=== PATIENT | female | born 1960 | race Caucasian/White ===

== ENCOUNTER 2018-06-28 16:59 | Inpatient (IN) | payer OTHER ==
--- OUTSIDE RECORDS SUMMARY | 2018-06-28 17:01 | XMS REPORT | Clinical Summary ---
:1960 Author Organization [facility] Address [address] [place] [address] Care Team Providers Name Role Phone Dhruv Palmer DO Primary Care Provider Allergies No Known Allergies Current Medications Not on file Active Problems Not on file Social History Tobacco Use Types Packs/Day Years Used Date Never Smoker Alcohol Use Drinks/Week oz/Week Comments No Sex Assigned at Date Recorded Not on file Last Filed Vital Signs Not on file Plan of Treatment Health Maintenance Due Date Last Done Comments CERVICAL CANCER SCREENING 11/10/1979 BREAST CANCER SCREENING 2008 COLON CANCER SCREENING 2008 SHINGRIX VACCINE (#1) 2008 INFLUENZA VACCINE 04/09/2018 Results Not on fileafter 06/27/2017 Insurance Payer Benefit Plan / Group Subscriber ID Type Phone Address [employer] C[employer] OPEN ACCESS/NETWORK xxxxxxxxxxx HMO [phone] [place] [address]
[2018-06-28] MEDS ORDERED: NA CHLORIDE 0.9% 1,000 ML ONE (17:32)
[2018-06-28] MEDS ORDERED: PANTOPRAZOLE 40 MG INJ ONE (17:32)
[2018-06-28] MEDS ORDERED: MORPHINE 4 MG/ML SYR ONE (17:32)
[2018-06-28] MEDS ORDERED: ONDANSETRON 4 MG/2 ML VIAL ONE ×3 (17:32→21:41)
[2018-06-28 17:49] LABS: Absolute Lymphocytes (CBC) 1.5 K/uL (0.7-4.9); Absolute Monocytes 0.2 K/uL (0.1-1.3); Absolute Neutrophil 6.4 K/uL (1.8-8.0); Basophils % 0.2 % (0-1.3); Hematocrit 40.3 % (36.0-45.0); Lymphocytes % 18.9 % (15.3-44.8); MCH 28.3 pg (27.0-35.0); MCV 85.8 fL (80-100); MPV 8.5 fL (7.6-11.3); Monocytes % 2.7 % (3.3-12.3); RBC Red Blood Cell Count 4.69 M/uL (3.86-4.86)
[2018-06-28 18:19] LABS: ALT/SGPT 17 U/L (12-78); AST/SGOT 14 U/L (15-37); Albumin 3.9 g/dL (3.4-5.0); Alkaline Phosphatase 129 U/L (45-117); BUN Blood Urea Nitrogen 21 mg/dL (7-18); Bicarbonate 27 mmol/L (21-32); Bilirubin Direct < 0.1 mg/dL (0-0.2); Bilirubin Total 0.3 mg/dL (0.2-1.0); Glucose Level 138 mg/dL (74-106); Lipase 155 U/L (73-393); Magnesium 1.9 mg/dL (1.8-2.4); Potassium 3.8 mmol/L (3.5-5.1); Protein, Total 8.2 g/dL (6.4-8.2); Sodium Level 143 mmol/L (136-145); Troponin I < 0.02 ng/mL (0.0-0.045)
[2018-06-28] MEDS ORDERED: PROMETHAZINE 25 MG/ML VIAL ONE (18:34)
--- NOTE | 2018-06-28 18:53 | RAD REPORT ---
EXAM DESCRIPTION: CT - Abdomen Pelvis W Contrast - 06/28/2018 6:30 pm CLINICAL HISTORY: Abdominal pain with vomiting COMPARISON: April 2017 TECHNIQUE: Computed axial tomography of the abdomen pelvis was obtained. 100 cc Isovue-300 was admin istered intravenously. Oral contrast was not requested which limits evaluation of bowel. All CT scans are performed using dose optimization technique as appropriate and may include automated exposure control or mA/KV adjustment according to patient size. FINDINGS: The liver, spleen, pancreas, adrenal and kidneys appear unremarkable. There is no evidence of diverticulitis. The gallbladder has been removed. Loop of jejunum is mildly dilated and fluid-filled. Small to moderate hiatal hernia is seen IMPRESSION: Loop of jejunum is mildly dilated and fluid-filled. Most likely this represents an enter itis. If the patient's symptoms persist followup abdominal plain film series would be recommended
--- NOTE | 2018-06-28 19:26 | RAD REPORT ---
EXAM DESCRIPTION: [place] Single View06/28/2018 6:21 pm CLINICAL HISTORY: Abdominal pain COMPARISON: April 2017 FINDINGS: The lungs appear clear of acute infiltrate. The heart is normal size IMPRESSION: No acute abnormalities displayed
[2018-06-28 19:30] LABS: Urine Blood TRACE (NEG); Urine Glucose NEGATIVE (NEG); Urine Protein NEGATIVE (NEG)
--- NOTE | 2018-06-28 21:05 | EDPHYS ---
Physician Documentation [facility] Name: Sirisha Iraj Age: 57 yrs Sex: Female : 1960 Arrival Date: 06/28/2018 Time: 17:01 Bed 27 Private MD: ED Physician Raj Fine HPI: 06/28 17:30 This 57 yrs old Female presents to ER via Wheelchair with complaints of cp Vomiting. 17:30 The patient presents to the emergency department with nausea, with "dry heaves", cp vomiting, that is continuous, described as bilious, abdominal pain. 17:30 Onset: The symptoms/episode began/occurred yesterday. Possible causes: unknown. cp Associated signs and symptoms: Pertinent positives: anorexia, Pertinent negatives: constipation, diarrhea, fever, GI bleeding. Severity of symptoms: in the emergency department the symptoms are unchanged despite home interventions. Historical: - Allergies: 17:09 No Known Allergies; aj1 - Home Meds: 17:09 Ambien Oral [Active]; levothyroxine oral [Active]; aj1 - PMHx: 17:09 Hypothyroidism; aj1 - Immunization history:: Flu vaccine is not up to date. - Social history:: Smoking status: Patient/guardian denies using tobacco. - Ebola Screening: : Patient denies travel to an Ebola-affected area in the 21 days before illness onset. ROS: 17:40 Constitutional: Positive for poor PO intake, Negative for body aches, chills, fever. cp 17:40 Eyes: Negative for injury, pain, redness, and discharge. cp 17:40 ENT: Negative for drainage from ear(s), ear pain, sore throat, difficulty swallowing, difficulty handling secretions. 17:40 Cardiovascular: Negative for chest pain, edema, palpitations. 17:40 Respiratory: Negative for cough, shortness of breath, wheezing. 17:40 Abdomen/GI: Positive for abdominal pain, nausea, vomiting, of the epigastric area, right upper quadrant and left upper quadrant, Negative for diarrhea, constipation, dysphagia, hematemesis, black/tarry stool, rectal bleeding. 17:40 Back: Negative for radiated pain. 17:40 : Negative for urinary symptoms. 17:40 Skin: Negative for cellulitis, rash. 17:40 Neuro: Negative for altered mental status, dizziness, headache, weakness. 17:40 All other systems are negative. Exam: 17:45 Constitutional: The patient appears in no acute distress, alert, awake, cp non-diaphoretic, non-toxic, well developed, well nourished, uncomfortable. 17:45 Head/Face: Normocephalic, atraumatic. Eyes: Pupils equal round and reactive to light, cp extra-ocular motions intact. Lids and lashes normal. Conjunctiva and sclera are non-icteric and not injected. Cornea within normal limits. Periorbital areas with no swelling, redness, or edema. 17:45 ENT: External ear(s): are unremarkable, Nose: is normal, Mouth: Lips: dry, Oral mucosa: pink and intact, moist, Posterior pharynx: is normal, airway is patent, no erythema, no exudate, Voice: is normal. 17:45 Neck: ROM/movement: is normal, is supple, without pain, no range of motions limitations, no meningismus, no nuchal rigidity. 17:45 Chest/axilla: Inspection: normal, Palpation: is normal, no crepitus, no tenderness. 17:45 Cardiovascular: Rate: normal, Rhythm: regular, Edema: is not appreciated, JVD: is not appreciated. 17:45 Respiratory: the patient does not display signs of respiratory distress, Respirations: normal, no use of accessory muscles, no retractions, no splinting, no tachypnea, labored breathing, is not present, Breath sounds: are clear throughout, no decreased breath sounds, no stridor, no wheezing. 17:45 Abdomen/GI: Inspection: abdomen appears normal, Bowel sounds: active, all quadrants, Palpation: soft, in all quadrants, severe abdominal tenderness, in the epigastric area, right upper quadrant and left upper quadrant, rebound tenderness, is not appreciated, voluntary guarding, is elicited in the epigastric area, right upper quadrant and left upper quadrant. 17:45 Back: pain, is absent, ROM is normal. 17:45 Skin: cellulitis, is not appreciated, no rash present. 17:45 Neuro: Orientation: to person, place \\T\\ time. Mentation: is normal, Cerebellar function: is grossly normal, Motor: moves all fours, strength is normal, Sensation: no obvious gross deficits. 17:53 ECG was reviewed by the Attending Physician. cp Vital Signs: 17:09 BP 159 / 95; Pulse 65; Resp 18; Temp 97.6(TE); Pulse Ox 97% on R/A; Weight 63.5 kg (R); aj1 Height 5 ft. 6 in. (167.64 cm); Pain 10/10; 19:41 BP 177 / 73; Pulse 65; Pulse Ox 96% on R/A; rv 22:21 BP 168 / 82; Pulse 65; Pulse Ox 97% on R/A; rv 17:09 Body Mass Index 22.60 (63.50 kg, 167.64 cm) aj1 MDM: 17:11 Patient medically screened. cp 20:00 Data reviewed: vital signs, nurses notes, lab test result(s), EKG, radiologic studies, cp CT scan, plain films. 20:00 Test interpretation: by ED physician or midlevel provider: ECG, plain radiologic cp studies. 20:47 Physician consultation: Rimma Ram MD was called at 20:47, was contacted at 20:47, regarding admission, to the medical/surgical unit. patient's condition. 06/28 17:22 Order name: Basic Metabolic Panel; Complete Time: 18:26 cp 06/28 17:22 Order name: CBC with Diff; Complete Time: 18:26 cp 06/28 17:22 Order name: Creatinine for Radiology; Complete Time: 18:26 cp 06/28 17:22 Order name: Hepatic Function; Complete Time: 18:26 cp 06/28 17:22 Order name: Lipase; Complete Time: 18:26 cp 06/28 17:22 Order name: Troponin I; Complete Time: 18:26 cp 06/28 17:22 Order name: Magnesium; Complete Time: 18:26 cp 06/28 17:22 Order name: CT Abd/Pelvis - W/Contrast; Complete Time: 19:34 cp 06/28 17:22 Order name: XRAY Chest (1 view); Complete Time: 19:34 cp 06/28 18:53 Order name: Urine Dipstick--Ancillary (enter results); Complete Time: 19:34 em1 06/28 17:22 Order name: IV Saline Lock; Complete Time: 17:39 cp 06/28 17:22 Order name: Labs collected and sent; Complete Time: 17:39 cp 06/28 17:22 Order name: EKG; Complete Time: 17:23 cp 06/28 17:22 Order name: EKG - Nurse/Tech; Complete Time: 17:50 cp 06/28 18:53 Order name: Urine Dipstick-Ancillary (obtain specimen); Complete Time: 18:54 em1 06/28 19:34 Order name: PO challenge; Complete Time: 19:40 cp EC:53 Rate is 69 beats/min. Rhythm is regular. KS interval is normal. QRS interval is normal. cp QT interval is normal. Interpreted by me. Reviewed by me. Administered Medications: 17:38 Drug: NS 0.9% 1000 ml Route: IV; Rate: 1 bolus; Site: right antecubital; rv 18:40 Follow up: IV Status: Completed infusion rv 17:38 Drug: morphine 4 mg Route: IVP; Site: right antecubital; rv 18:08 Follow up: Response: Pain is unchanged, physician notified rv 17:38 Drug: ProTONIX 40 mg Route: IVP; Site: right antecubital; rv 18:07 Follow up: Response: Nausea unchanged rv 17:38 Drug: Zofran 4 mg Route: IVP; Site: right antecubital; rv 18:07 Follow up: Response: Nausea unchanged rv 18:39 Drug: Phenergan 25 mg Route: IVP; Site: right antecubital; rv 19:40 Follow up: Response: Nausea is decreased rv 18:39 Drug: Zofran 4 mg Route: IVP; Site: right antecubital; rv 19:40 Follow up: Response: Nausea is decreased rv 18:40 Drug: NS 0.9% 1000 ml Route: IV; Rate: 125 ml/hr; Site: right antecubital; rv 22:48 Follow up: IV Status: Infusion continued upon admission rv 21:41 Drug: Zofran 4 mg Route: IVP; Site: right antecubital; rv 22:48 Follow up: Response: No adverse reaction rv 21:41 Drug: metroNIDAZOLE 500 mg Volume: 100 ml; Route: IVPB; Infused Over: 30 mins; Site: rv right antecubital; 22:48 Follow up: IV Status: Completed infusion rv Disposition: 06/29 07:12 Co-signature as Attending Physician, Raj Fine MD I agree with the assessment and kdr plan of care. Disposition: 06/28/18 21:03 Hospitalization ordered by Rimma Ram for Observation. Preliminary diagnosis is Nausea and vomiting - Intractable. - Bed requested for Telemetry/MedSurg (observation). - Status is Observation. rv - Condition is Stable. - Problem is new. - Symptoms have improved. UTI on Admission? No Signatures: Dispatcher [employer] EDMS Юлия Lu RN RN aj1 Yamilex Harrell RN RN kl Rittger, Kevin, MD MD kdr Martinez, Eric 1 Saman Gurrola PA PA cp Vicente, Ronaldo, RN RN rv Corrections: (The following items were deleted from the chart) 06/28 21:39 21:03 Hospitalization Ordered by Rimma Ram MD for Observation. Preliminary diagnosis is Nausea and vomiting - Intractable. Bed requested for Telemetry/MedSurg (observation). Status is Observation. Condition is Stable. Problem is new. Symptoms have improved. UTI on Admission? No. cp 22:49 21:39 06/28/2018 21:03 Hospitalization Ordered by Rimma Ram MD for Observation. rv Preliminary diagnosis is Nausea and vomiting - Intractable. Bed requested for Telemetry/MedSurg (observation). Status is Observation. Condition is Stable. Problem is new. Symptoms have improved. UTI on Admission? No. bonifacio
--- NOTE | 2018-06-28 21:05 | ER ---
Nurse's Notes [facility] Name: Sirisha Iraj Age: 57 yrs Sex: Female : 1960 Arrival Date: 06/28/2018 Time: 17:01 Bed 27 Private MD: Diagnosis: Nausea and vomiting-Intractable Presentation: 06/28 17:05 Presenting complaint: states: She's been throwing up since last night. Denies aj1 fever, diarrhea. Reports epigastric pain, nausea, vomiting. Transition of care: patient was not received from another setting of care. Onset of symptoms was June 27, 2018. Risk Assessment: Do you want to hurt yourself or someone else? Patient reports no desire to harm self or others. Initial Sepsis Screen: Does the patient meet any 2 criteria? No. Patient's initial sepsis screen is negative. Does the patient have a suspected source of infection? Yes: Acute abdominal pain. Care prior to arrival: None. 17:05 Method Of Arrival: Wheelchair aj 17:05 Acuity: MING 3 aj1 Triage Assessment: 17:09 General: Appears uncomfortable, Behavior is cooperative, anxious, crying. Pain: aj1 Complains of pain in epigastric area Pain currently is 10 out of 10 on a pain scale. Neuro: Level of Consciousness is awake, alert, obeys commands. Cardiovascular: Patient's skin is warm and dry. Respiratory: Airway is patent Respiratory effort is even, unlabored, Respiratory pattern is regular, symmetrical. GI: Reports upper abdominal pain, nausea, vomiting. Historical: - Allergies: 17:09 No Known Allergies; aj1 - Home Meds: 17:09 Ambien Oral [Active]; levothyroxine oral [Active]; aj1 - PMHx: 17:09 Hypothyroidism; aj1 - Immunization history:: Flu vaccine is not up to date. - Social history:: Smoking status: Patient/guardian denies using tobacco. - Ebola Screening: : Patient denies travel to an Ebola-affected area in the 21 days before illness onset. Screenin:40 Abuse screen: Denies threats or abuse. Denies injuries from another. Nutritional rv screening: No deficits noted. Tuberculosis screening: No symptoms or risk factors identified. Fall Risk None identified. Assessment: 17:39 General: Appears in no apparent distress. comfortable, Behavior is cooperative, crying. rv Pain: Complains of pain in abdomen. Neuro: Level of Consciousness is awake, alert, obeys commands, Oriented to person, place, time, situation. Cardiovascular: Capillary refill < 3 seconds. Respiratory: Airway is patent. GI: Reports lower abdominal pain. GI: Pt is actively vomiting. : No signs and/or symptoms were reported regarding the genitourinary system. EENT: No signs and/or symptoms were reported regarding the EENT system. Derm: Skin is intact. 18:08 Reassessment: No changes from previously documented assessment. Patient and/or family rv updated on plan of care and expected duration. Pain level reassessed. Patient is alert, oriented x 3, equal unlabored respirations, skin warm/dry/pink. 19:41 Reassessment: Patient appears in no apparent distress at this time. Patient and/or rv family updated on plan of care and expected duration. Pain level reassessed. Patient is alert, oriented x 3, equal unlabored respirations, skin warm/dry/pink. Vital Signs: 17:09 BP 159 / 95; Pulse 65; Resp 18; Temp 97.6(TE); Pulse Ox 97% on R/A; Weight 63.5 kg (R); aj1 Height 5 ft. 6 in. (167.64 cm); Pain 10/10; 19:41 BP 177 / 73; Pulse 65; Pulse Ox 96% on R/A; rv 22:21 BP 168 / 82; Pulse 65; Pulse Ox 97% on R/A; rv 17:09 Body Mass Index 22.60 (63.50 kg, 167.64 cm) aj1 ED Course: 17:01 Patient arrived in ED. tw3 17:08 Triage completed. aj1 17:09 Arm band placed on Patient placed in an exam room. aj1 17:11 Saman Gurrola PA is PHCP. cp 17:11 Raj Fine MD is Attending Physician. cp 17:39 Initial lab(s) drawn, by me, sent to lab. Inserted saline lock: 20 gauge in right rv antecubital area, using aseptic technique. Blood collected. 17:40 Patient has correct armband on for positive identification. Bed in low position. Call rv light in reach. Side rails up X 1. Adult w/ patient. Pulse ox on. NIBP on. 17:40 Warm blanket given. Pillow given. jp3 17:46 Radiology exam delayed due to lab results not completed at this time. (BUN/Creatinine). mw3 17:49 EKG done, by ED staff, reviewed by Saman RIGGS. rv 17:58 monitoring coordinator on. jp3 18:22 XRAY Chest (1 view) In Process Unspecified. EDMS 18:28 CT completed. Patient moved to CT via wheelchair. Patient moved back from CT. cw1 18:31 CT Abd/Pelvis - W/Contrast In Process Unspecified. EDMS 18:32 Awaiting lab results, Awaiting radiology results. Awaiting CT Scan. rv 18:51 Urine collected: clean catch specimen, clear. rv 21:03 Rimma Ram MD is Hospitalizing Provider. cp 22:22 No provider procedures requiring assistance completed. Patient admitted, IV remains in rv place. intact. Administered Medications: 17:38 Drug: NS 0.9% 1000 ml Route: IV; Rate: 1 bolus; Site: right antecubital; rv 18:40 Follow up: IV Status: Completed infusion rv 17:38 Drug: morphine 4 mg Route: IVP; Site: right antecubital; rv 18:08 Follow up: Response: Pain is unchanged, physician notified rv 17:38 Drug: ProTONIX 40 mg Route: IVP; Site: right antecubital; rv 18:07 Follow up: Response: Nausea unchanged rv 17:38 Drug: Zofran 4 mg Route: IVP; Site: right antecubital; rv 18:07 Follow up: Response: Nausea unchanged rv 18:39 Drug: Phenergan 25 mg Route: IVP; Site: right antecubital; rv 19:40 Follow up: Response: Nausea is decreased rv 18:39 Drug: Zofran 4 mg Route: IVP; Site: right antecubital; rv 19:40 Follow up: Response: Nausea is decreased rv 18:40 Drug: NS 0.9% 1000 ml Route: IV; Rate: 125 ml/hr; Site: right antecubital; rv 22:48 Follow up: IV Status: Infusion continued upon admission rv 21:41 Drug: Zofran 4 mg Route: IVP; Site: right antecubital; rv 22:48 Follow up: Response: No adverse reaction rv 21:41 Drug: metroNIDAZOLE 500 mg Volume: 100 ml; Route: IVPB; Infused Over: 30 mins; Site: rv right antecubital; 22:48 Follow up: IV Status: Completed infusion rv Outcome: 21:03 Decision to Hospitalize by Provider. cp 22:22 Admitted to Med/surg accompanied by tech, via wheelchair, room 208, with chart, Report rv called to DOM3 22:22 Condition: good 22:22 Instructed on the need for admit. 22:49 Patient left the ED. rv Signatures: Dispatcher [employer] EDЮлия Singer, RN RN jacky1 Kayla Tovar cw1 Saman Gurrola PA PA chidi Hazel, Soni tw3 Brandy Abdalla mw3 Alberto Fields RN RN rv Emanuel Galarza jp3
--- NOTE | 2018-06-28 21:39 | P.HP ---
Certification for Inpatient Patient admitted to: Observation With expected LOS: <2 Midnights Practitioner: I am a practitioner with admitting privileges, knowledge of patient current condition, hospital course, and medical plan of care. Services: Services provided to patient in accordance with Admission requirements found in Title 42 Section 412.3 of the Code of Federal Regulations Patient History Date of Service: 06/28/18 Reason for admission: Enteritis/intractable nausea and vomiting History of Present Illness: Ms Galo is a 57-year-old woman with history of hypothyroidism, who started last night with abdominal pain localized in the umbilical area radiating to epigastrium, 10/10 of intensity, colicky like, associated with nausea and vomiting. She has had some diarrhea episode as well, and chills. She denies fever, chest pain or shortness of breath. Lab work remarkable for normal WBC count, elevated BUN consistent with acute renal injury. CT abdomen and pelvis consistent with enteritis. Allergies No Known Allergies Allergy (Unverified 08/23/14 16:50) Home Medications: Levothyroxine Sodium [Levothroid] 100 mcg PO DAILY 10/11/13 Zolpidem Tartrate [Ambien*] 10 mg PO BEDTIME PRN 10/11/13 Methylphenidate HCl [Methylphenidate ER] 15 mg PO BID 01/09/17 Hydrocodone Bit/Acetaminophen [Niles 7.5-325 Tablet] 1 each PO Q6H PRN #20 tablet 01/12/17 Magnesium Oxide [Mag 0X*] 400 mg PO BID #60 tab 01/12/17 Metoprolol Tartrate [Lopressor] 50 mg PO BID #60 tablet 01/12/17 Ondansetron [Zofran (Odt)*] 4 mg PO Q6H PRN #10 tab 01/12/17 Pantoprazole Sodium [Protonix] 40 mg PO DAILY #30 tablet.dr 01/12/17 Potassium Bicarbonate/Cit AC [Potassium 25 Meq Tablet Eff] 25 meq PO DAILY #20 tablet.eff 01/12/17 Promethazine HCl [Phenergan] 25 mg RC Q6H PRN #30 supp.rect 01/12/17 - Past Medical/Surgical History Diabetic: No -: hypothyroid -: colitis -: HYPOTHROIDISM -: hernia repair -: bowel resection - Family History Mother -: Heart disease, Diabetes - Social History Smoking Status: Never smoker Alcohol use: No CD- Drugs: No Caffeine use: Yes Place of Residence: Home Review of Systems 10-point ROS is otherwise unremarkable Physical Examination - Physical Exam General: Alert, In no apparent distress HEENT: Atraumatic, PERRLA, Mucous membr. moist/pink, EOMI, Sclerae nonicteric Neck: Supple, 2+ carotid pulse no bruit, No LAD, Without JVD or thyroid abnormality Respiratory: Clear to auscultation bilaterally, Normal air movement Cardiovascular: Regular rate/rhythm, Normal S1 S2 Gastrointestinal: Normal bowel sounds, Tenderness (Tender to palpation diffusely ) Musculoskeletal: No tenderness Integumentary: No rashes Neurological: Normal speech, Normal strength at 5/5 x4 extr, Normal tone, Normal affect Lymphatics: No axilla or inguinal lymphadenopathy - Studies Laboratory Data (last 24 hrs) 06/28/18 17:30: Creatinine 0.80 06/28/18 17:30: WBC 8.2, Hgb 13.3, Hct 40.3, Plt Count 402 06/28/18 17:30: Sodium 143, Potassium 3.8, BUN 21 H, Creatinine 0.80, Glucose 138 H, Magnesium 1.9, Total Bilirubin 0.3, AST 14 L, ALT 17, Alkaline Phosphatase 129 H, Troponin I < 0.02, Lipase 155 Assessment and Plan - Problems (Diagnosis) (1) Enteritis Current Visit: Yes Status: Acute (2) Intractable vomiting Onset Date: 01/09/17 Current Visit: No Status: Acute Qualifiers: Vomiting type: unspecified Nausea presence: with nausea Qualified Code(s) : R11.2 - Nausea with vomiting, unspecified (3) Hypothyroidism Current Visit: No Status: Chronic Qualifiers: Hypothyroidism type: unspecified - Plan Patient will be admitted to the hospital due to intractable nausea vomiting secondary to acute enteritis. She also has acute renal injury secondary to volume depletion. Will continue with antiemetic medication, empiric antibiotic treatment, IV fluids. Will check new laboratory work in a.m. - Advance Directives Does patient have a Living Will: No Does patient have a Durable POA for Healthcare: No - Code Status/Comfort Care Code Status Assessed: Yes Code Status: Full Code
[2018-06-28] MEDS ORDERED: CIPROFLOXACIN 400mg IV 400 MG/200 ML BAG IV ONE (21:42)
[2018-06-28] MEDS ORDERED: METRONIDAZOLE 500mg IVPB 500 MG/100 ML BAG IV ONE (21:42)
[2018-06-28 23:00] VITALS: BMI 21.6
[2018-06-28] MEDS: NA CHLORIDE 0.9% 1,000 ML IV SCH (23:42)
[2018-06-28] MEDS: CIPROFLOXACIN 400mg IV 400 MG/200 ML BAG IV SCH (23:42)
[2018-06-28] MEDS: MORPHINE 2 MG/ML SYR IV PRN (23:43)
[2018-06-28] MEDS: PROMETHAZINE 25 MG/ML VIAL IV PRN (23:43)
[2018-06-29] MEDS: ONDANSETRON 4 MG/2 ML VIAL IV PRN ×4 (01:37→20:16)
[2018-06-29] MEDS: METRONIDAZOLE 500mg IVPB 500 MG/100 ML BAG IV SCH ×3 (01:39→16:33)
[2018-06-29] MEDS: MORPHINE 2 MG/ML SYR IV PRN ×4 (03:36→20:17)
[2018-06-29] MEDS: PROMETHAZINE 25 MG/ML VIAL IV PRN (03:36)
[2018-06-29 05:27] LABS: Absolute Lymphocytes (CBC) 1.7 K/uL (0.7-4.9); Absolute Monocytes 0.7 K/uL (0.1-1.3); Absolute Neutrophil 15.4 K/uL (1.8-8.0); Basophils % 0.2 % (0-1.3); Hematocrit 35.5 % (36.0-45.0); Lymphocytes % 9.5 % (15.3-44.8); MCH 28.2 pg (27.0-35.0); MCV 85.2 fL (80-100); MPV 8.7 fL (7.6-11.3); Monocytes % 3.8 % (3.3-12.3); RBC Red Blood Cell Count 4.17 M/uL (3.86-4.86)
[2018-06-29 05:44] LABS: Albumin 3.4 g/dL (3.4-5.0); Bilirubin Total 0.6 mg/dL (0.2-1.0); Potassium 3.4 mmol/L (3.5-5.1); Protein, Total 6.8 g/dL (6.4-8.2)
[2018-06-29] MEDS ORDERED: INFLUENZA VACCINE (for 3y+) 0.5 ML DOSE IMVAC ONE (06:00)
[2018-06-29] MEDS: LEVOTHYROXINE SOD 0.125 MG TAB PO SCH ×2 (06:00→18:01)
[2018-06-29] MEDS: KCL 20 MEQ/100 mL IVPB 20 MEQ/100 ML BAG IV SCH ×2 (06:37→10:05)
[2018-06-29] MEDS ORDERED: TRAMADOL HCL 50 MG TAB PO PRN (07:52)
[2018-06-29] MEDS ORDERED: SODIUM CHLORIDE 0.9% 10ML INJ IV PRN (07:52)
[2018-06-29] MEDS ORDERED: HYDROCODONE/APAP 7.5/325 MG TAB PO PRN (07:52)
[2018-06-29] MEDS: NA CHLORIDE 0.9% 1,000 ML IV SCH (08:16)
[2018-06-29 08:44] LABS: Blood Morphology Comment NOT SEEN (NOT SEEN); Platelet Estimate INCR; Urine White Blood Cell Casts OK
[2018-06-29] MEDS: CIPROFLOXACIN 400mg IV 400 MG/200 ML BAG IV SCH ×2 (08:45→20:16)
[2018-06-29] MEDS: ENOXAPARIN 40 MG/0.4 ML SQ SCH (08:47)
[2018-06-29] MEDS ORDERED: CIPROFLOXACIN 400mg IV 400 MG/200 ML BAG IV SCH (09:00)
[2018-06-29] MEDS: PANTOPRAZOLE 40 MG INJ IVP SCH ×2 (10:05→20:16)
--- NOTE | 2018-06-29 10:07 | P.PN ---
Subjective Date of Service: 06/29/18 Primary Care Provider: Dr. Palmer Chief Complaint: Enteritis/intractable nausea and vomiting Subjective: Other (Nausea improved. Abdominal pain improved as well. Increased anxiety) Physical Examination - Vital Signs Temperature: 99.4 F Blood Pressure: 189/89 Pulse: 75 Respirations: 22 Pulse Ox (%): 95 - Physical Exam General: Alert, In no apparent distress, Cooperative, Other (Increased anxiety) HEENT: Atraumatic Neck: Supple Respiratory: Clear to auscultation bilaterally, Normal air movement Cardiovascular: Normal pulses, Regular rate/rhythm Gastrointestinal: Normal bowel sounds, Soft and benign, Non-distended, No masses , No rebound, No guarding, Tenderness (Less pain to the epigastric region) Musculoskeletal: No erythema, No tenderness, No warmth Integumentary: No tenderness/swelling, No erythema, No warmth, No cyanosis Neurological: Normal speech, Normal strength at 5/5 x4 extr, Normal tone, Normal affect - Studies Laboratory Data (last 24 hrs) 06/28/18 17:30: Creatinine 0.80 06/28/18 17:30: WBC 8.2, Hgb 13.3, Hct 40.3, Plt Count 402 06/28/18 17:30: Sodium 143, Potassium 3.8, BUN 21 H, Creatinine 0.80, Glucose 138 H, Magnesium 1.9, Total Bilirubin 0.3, AST 14 L, ALT 17, Alkaline Phosphatase 129 H, Troponin I < 0.02, Lipase 155 Medications List Reviewed: Yes Assessment & Plan Discharge Plan: Home Plan to discharge in: 48 Hours Physician Review Additional Text: Impression: Nausea, vomiting, abdominal pain secondary to enteritis likely viral Dehydration secondary to nausea and vomiting Hypokalemia secondary to nausea and vomiting Hiatal hernia with GERD Hypothyroidism Hypertension Anxiety Plan: Nausea, vomiting, abdominal pain secondary to enteritis likely viral: Continue with IV fluids and antibiotic therapy-Cipro/Flagyl. Will continue with full liquid diet. Will advance as tolerated. Anticipate discharge in the next 24- 48 hr. Will check for D diff colitis Dehydration secondary to nausea and vomiting: Continue with IV fluids. Will provide medication for nausea. Hypokalemia secondary to nausea and vomiting: Will provide medication for nausea. Will monitor and replace electrolytes. Hiatal hernia with GERD: Will start PPI. Hypothyroidism: Will verify and restart home medication Hypertension: Will start lisinopril. Will monitor and adjust appropriately. Anxiety: Provide medication. Time Spent Managing Pts Care (In Minutes): 55
[2018-06-29] MEDS: LISINOPRIL 5 MG TAB PO SCH (11:00)
[2018-06-29] MEDS: NACHLORIDE 0.45% 1,000 ML IV SCH ×2 (12:20→20:16)
[2018-06-29] MEDS: ALPRAZOLAM 0.25 MG TABLET PO PRN ×2 (16:33→23:39)
--- NOTE | 2018-06-29 17:35 | EKG ---
Test Date: 2018-06-28 Test Time: 17:45:07 Assistant Maintenance Manager: LUIS A MEASUREMENT RESULTS: Intervals: Rate: 69 NH: 130 QRSD: 88 QT: 432 QTc: 462 [place]: P: NH: 130 QRS: -18 T: 37 INTERPRETIVE STATEMENTS: Normal sinus rhythm Normal ECG Compared to ECG 04/18/2017 13:28:01 Left-axis deviation no longer present Electronically Signed On 06-29-18 17:33:33 CDT by Kody Martinez
[2018-06-29] MEDS ORDERED: KCL 20 MEQ/100 mL IVPB 20 MEQ/100 ML BAG IV SCH (20:00)
[2018-06-29] MEDS: ZOLPIDEM TARTRATE 10 MG TABLET PO PRN (21:25)
[2018-06-29] MEDS ORDERED: PROMETHAZINE 25 MG/ML VIAL IV ONE (21:36)
[2018-06-30] MEDS: METRONIDAZOLE 500mg IVPB 500 MG/100 ML BAG IV SCH ×3 (02:18→16:41)
[2018-06-30] MEDS: LEVOTHYROXINE SOD 0.125 MG TAB PO SCH (04:57)
[2018-06-30 05:25] LABS: Absolute Lymphocytes (CBC) 1.9 K/uL (0.7-4.9); Absolute Monocytes 0.7 K/uL (0.1-1.3); Absolute Neutrophil 5.5 K/uL (1.8-8.0); Basophils % 0.4 % (0-1.3); Eosinophils % 0.2 % (0-4.4); Hematocrit 35.6 % (36.0-45.0); Lymphocytes % 23.1 % (15.3-44.8); MCH 28.4 pg (27.0-35.0); MCV 85.3 fL (80-100); MPV 8.8 fL (7.6-11.3); Monocytes % 8.5 % (3.3-12.3); RBC Red Blood Cell Count 4.18 M/uL (3.86-4.86)
[2018-06-30 05:36] LABS: BUN Blood Urea Nitrogen 11 mg/dL (7-18); Bicarbonate 24 mmol/L (21-32); Glucose Level 114 mg/dL (74-106); Magnesium 1.7 mg/dL (1.8-2.4); Potassium 3.6 mmol/L (3.5-5.1); Sodium Level 140 mmol/L (136-145)
[2018-06-30] MEDS ORDERED: MAGNESIUM SULFATE 1 gm IVPB 1 GM/100 ML BAG IV ONE (05:47)
[2018-06-30] MEDS ORDERED: KCL 20 MEQ/100 mL IVPB 20 MEQ/100 ML BAG IV SCH (06:00)
[2018-06-30] MEDS: ONDANSETRON 4 MG/2 ML VIAL IV PRN ×3 (06:08→16:47)
[2018-06-30] MEDS: NACHLORIDE 0.45% 1,000 ML IV SCH ×2 (09:00→16:29)
[2018-06-30] MEDS: LISINOPRIL 5 MG TAB PO SCH (09:00)
[2018-06-30] MEDS: ENOXAPARIN 40 MG/0.4 ML SQ SCH (09:00)
[2018-06-30] MEDS: CIPROFLOXACIN 400mg IV 400 MG/200 ML BAG IV SCH ×2 (09:01→21:02)
[2018-06-30] MEDS: PANTOPRAZOLE 40 MG INJ IVP SCH ×2 (09:03→21:01)
[2018-06-30] MEDS: MORPHINE 2 MG/ML SYR IV PRN ×2 (09:03→13:40)
[2018-06-30] MEDS: HYDRALAZINE HCL 20 MG/ML VIAL IV PRN (09:03)
--- NOTE | 2018-06-30 15:53 | P.PN ---
Subjective Date of Service: 06/30/18 Primary Care Provider: Dr. Palmer Chief Complaint: Enteritis/intractable nausea and vomiting Subjective: Other (Patient with increased nausea and vomiting this morning. Not able to tolerate current diet.) Physical Examination - Vital Signs Temperature: 98.0 F Blood Pressure: 110/67 Pulse: 74 Respirations: 16 Pulse Ox (%): 93 - Physical Exam General: Alert, In no apparent distress, Oriented x3, Cooperative HEENT: Atraumatic Neck: Supple Respiratory: Clear to auscultation bilaterally, Normal air movement Cardiovascular: Normal pulses, Regular rate/rhythm Gastrointestinal: Normal bowel sounds, Soft and benign, Non-distended, No masses , No rebound, No guarding, Tenderness (Mild tenderness to the abdomen) Musculoskeletal: No erythema, No tenderness, No warmth Integumentary: No erythema, No warmth, No cyanosis Neurological: Normal speech, Normal strength at 5/5 x4 extr, Normal tone, Normal affect - Studies Laboratory Data (last 24 hrs) 06/30/18 04:32: WBC 8.1 D, Hgb 11.9 L, Hct 35.6 L, Plt Count 297 06/30/18 04:32: Sodium 140, Potassium 3.6, BUN 11, Creatinine 0.60, Glucose 114 H, Magnesium 1.7 L 06/29/18 18:22: Potassium 3.5 Medications List Reviewed: Yes Assessment & Plan Discharge Plan: Home Plan to discharge in: 24 Hours Physician Review Additional Text: Impression: Nausea, vomiting, abdominal pain secondary to enteritis likely viral Dehydration secondary to nausea and vomiting Hypokalemia secondary to nausea and vomiting Hiatal hernia with GERD Hypothyroidism Hypertension Anxiety Plan: Nausea, vomiting, abdominal pain secondary to enteritis likely viral: Patient with increased nausea and vomiting this morning. Slow improvement noted. Will continue with IV antibiotic therapy-Cipro and Flagyl. Will continue with medication for nausea. Will advance diet as tolerated. Encourage ambulation. Anticipate discharge in the next 24-48 hr and once patient without nausea and vomiting. Will provide incentive spirometer Dehydration secondary to nausea and vomiting: Continue with IV fluids. Will provide medication for nausea. Hypokalemia secondary to nausea and vomiting: Will provide medication for nausea. Will monitor and replace electrolytes. Hiatal hernia with GERD: Will continue with PPI. Hypothyroidism: Will continue home medication Hypertension: Will continue with lisinopril. Will monitor and adjust appropriately. Anxiety: Provide medication. I will turn the service over to Dr. Shah tomorrow. I will go over the plan of care with her. Time Spent Managing Pts Care (In Minutes): 55
[2018-06-30] MEDS: ALPRAZOLAM 0.25 MG TABLET PO PRN (21:01)
[2018-06-30] MEDS: ZOLPIDEM TARTRATE 10 MG TABLET PO PRN (22:18)
[2018-07-01] MEDS: METRONIDAZOLE 500mg IVPB 500 MG/100 ML BAG IV SCH ×2 (00:01→09:20)
[2018-07-01] MEDS: NACHLORIDE 0.45% 1,000 ML IV SCH ×2 (02:04→09:22)
[2018-07-01] MEDS: ONDANSETRON 4 MG/2 ML VIAL IV PRN ×2 (03:12→09:24)
[2018-07-01] MEDS: MORPHINE 2 MG/ML SYR IV PRN ×2 (03:44→09:31)
[2018-07-01 05:35] LABS: Absolute Lymphocytes (CBC) 1.4 K/uL (0.7-4.9); Absolute Monocytes 0.6 K/uL (0.1-1.3); Absolute Neutrophil 5.8 K/uL (1.8-8.0); Basophils % 0.3 % (0-1.3); Eosinophils % 0.3 % (0-4.4); Hematocrit 38.1 % (36.0-45.0); Lymphocytes % 17.2 % (15.3-44.8); MCH 28.2 pg (27.0-35.0); MCV 86.4 fL (80-100); MPV 8.7 fL (7.6-11.3); Monocytes % 7.8 % (3.3-12.3); RBC Red Blood Cell Count 4.41 M/uL (3.86-4.86)
[2018-07-01] MEDS: LEVOTHYROXINE SOD 0.125 MG TAB PO SCH (05:35)
[2018-07-01] MEDS: ALPRAZOLAM 0.25 MG TABLET PO PRN ×2 (05:38→21:19)
[2018-07-01 05:56] LABS: Potassium 3.6 mmol/L (3.5-5.1)
[2018-07-01] MEDS ORDERED: KCL 20 MEQ/100 mL IVPB 20 MEQ/100 ML BAG IV SCH (07:30)
[2018-07-01] MEDS: LISINOPRIL 5 MG TAB PO SCH ×2 (09:00→09:21)
[2018-07-01] MEDS: CIPROFLOXACIN 400mg IV 400 MG/200 ML BAG IV SCH (09:00)
[2018-07-01] MEDS: ENOXAPARIN 40 MG/0.4 ML SQ SCH (09:20)
[2018-07-01] MEDS: PANTOPRAZOLE 40 MG INJ IVP SCH (09:22)
[2018-07-01] MEDS: HYDRALAZINE HCL 20 MG/ML VIAL IV PRN (09:37)
[2018-07-01] MEDS: ONDANSETRON 4 MG (ODT) TAB PO PRN ×2 (12:59→19:26)
--- NOTE | 2018-07-01 14:03 | P.PN ---
Subjective Date of Service: 07/01/18 Primary Care Provider: Dr. Palmer Chief Complaint: Enteritis/intractable nausea and vomiting Patient seen and examined at bedside with RN. Chart reviewed. Case discussed with patient and nursing staff at bedside. Currently still complains of having some nausea however does notice some improvement at this time. She has been NPO. Review of Systems 10-point ROS is otherwise unremarkable Physical Examination - Vital Signs Temperature: 98.1 F Blood Pressure: 173/83 Pulse: 64 Respirations: 18 Pulse Ox (%): 91 - Physical Exam General: Alert, In no apparent distress HEENT: Atraumatic, PERRLA, EOMI Neck: Supple, JVD not distended Respiratory: Clear to auscultation bilaterally, Normal air movement Cardiovascular: Regular rate/rhythm, Normal S1 S2 Gastrointestinal: Normal bowel sounds, No tenderness Musculoskeletal: No tenderness Integumentary: No rashes Neurological: Normal speech, Normal tone, Normal affect Lymphatics: No axilla or inguinal lymphadenopathy - Studies Medications List Reviewed: Yes Assessment And Plan - Current Problems (Diagnosis) (1) Intractable vomiting Onset Date: 07/01/18 Current Visit: Yes Status: Acute Plan: Intractable nausea and vomiting most likely secondary to viral enteritis -improved today -switched to p.o. Zofran. -advance diet to a clear liquid diet and then hopefully to GI soft -will continue IV fluids until tolerating diet Qualifiers: Vomiting type: unspecified Nausea presence: with nausea Qualified Code(s) : R11.2 - Nausea with vomiting, unspecified (2) Enteritis Onset Date: 07/01/18 Current Visit: Yes Status: Acute Plan: Enteritis most likely viral in nature -Dc Cipro and Flagyl at this time (3) Dehydration Onset Date: 08/24/14 Current Visit: No Status: Acute Plan: IV fluids at this time (4) Hypothyroidism Onset Date: 07/01/18 Current Visit: Yes Status: Chronic Qualifiers: Hypothyroidism type: acquired Qualified Code(s): E03.9 - Hypothyroidism, unspecified (5) Hypertension Current Visit: No Status: Chronic Qualifiers: Hypertension type: essential hypertension Qualified Code(s): I10 - Essential (primary) hypertension - Plan Currently pending clinical improvement. Dc antibiotics today. Switched over to oral Zofran. Advanced diet. If tolerating well and 24-48 hr anticipated discharge at that time. Discharge Plan: Home Plan to discharge in: 24 Hours - Code Status/Comfort Care Code Status Assessed: Yes Critical Care: No
[2018-07-01] MEDS: ZOLPIDEM TARTRATE 10 MG TABLET PO PRN (22:32)
[2018-07-02] MEDS: ONDANSETRON 4 MG (ODT) TAB PO PRN ×2 (04:50→10:34)
[2018-07-02] MEDS: ALPRAZOLAM 0.25 MG TABLET PO PRN (05:43)
[2018-07-02] MEDS: LEVOTHYROXINE SOD 0.125 MG TAB PO SCH (05:43)
[2018-07-02 06:08] LABS: Absolute Lymphocytes (CBC) 2.1 K/uL (0.7-4.9); Absolute Monocytes 0.7 K/uL (0.1-1.3); Absolute Neutrophil 3.7 K/uL (1.8-8.0); Basophils % 0.7 % (0-1.3); Hematocrit 39.3 % (36.0-45.0); Lymphocytes % 31.3 % (15.3-44.8); MCH 28.4 pg (27.0-35.0); MCV 85.1 fL (80-100); MPV 8.9 fL (7.6-11.3); RBC Red Blood Cell Count 4.62 M/uL (3.86-4.86)
[2018-07-02 06:15] LABS: Magnesium 2.4 mg/dL (1.8-2.4); Potassium 3.8 mmol/L (3.5-5.1)
[2018-07-02] MEDS ORDERED: PANTOPRAZOLE 40MG TABLET PO SCH (06:30)
[2018-07-02] MEDS: LISINOPRIL 5 MG TAB PO SCH (09:00)
[2018-07-02] MEDS ORDERED: POTASSIUM CL SA 10 MEQ TAB PO ONE (09:00)
[2018-07-02] MEDS: ENOXAPARIN 40 MG/0.4 ML SQ SCH (09:00)
[2018-07-02 10:58] VITALS: O2SAT 93
[2018-07-02 12:16] VITALS: BP 184/86; TEMP 98.3
--- NOTE | 2018-07-02 12:39 | P.DS ---
Admission Date: 06/30/18 Discharge Date: 07/02/18 Primary Care Provider: Dr. Palmer Disposition: ROUTINE DISCHARGE Discharge Condition: GOOD Reason for Admission: Enteritis/intractable nausea and vomiting - Problems (1) Intractable vomiting Onset Date: 07/01/18 Current Visit: Yes Status: Acute Qualifiers: Vomiting type: unspecified Nausea presence: with nausea Qualified Code(s) : R11.2 - Nausea with vomiting, unspecified (2) Enteritis Onset Date: 07/01/18 Current Visit: Yes Status: Acute (3) Dehydration Onset Date: 08/24/14 Current Visit: No Status: Acute (4) Hypothyroidism Onset Date: 07/01/18 Current Visit: Yes Status: Chronic Qualifiers: Hypothyroidism type: acquired Qualified Code(s): E03.9 - Hypothyroidism, unspecified (5) Hypertension Current Visit: No Status: Chronic Qualifiers: Hypertension type: essential hypertension Qualified Code(s): I10 - Essential (primary) hypertension Brief History of Present Illness: Ms Galo is a 57-year-old woman with history of hypothyroidism, who started last night with abdominal pain localized in the umbilical area radiating to epigastrium, 10/10 of intensity, colicky like, associated with nausea and vomiting. She has had some diarrhea episode as well, and chills. She denies fever, chest pain or shortness of breath. Lab work remarkable for normal WBC count, elevated BUN consistent with acute renal injury. CT abdomen and pelvis consistent with enteritis. Hospital Course: Overall during the hospital stay patient remained stable The patient was initially admitted to the hospital for viral gastroenteritis on CT scan and intractable nausea and vomiting. Patient was kept NPO with IV antibiotics here in the hospital. Patient had marked improvement in her symptoms after getting nausea medications along with antibiotics. Antibiotics were. Test patient's enteritis was most likely secondary to viral illness. Patient had IV fluids here in the hospital and had marked improvement in her symptoms. Patient then was advanced to a clear liquid diet to a regular diet and tolerated well. Patient then was discharged home under stable condition. Patient was asked to follow up with a primary care provider in about 1-2 days post discharge. No new medications were restarted here in the hospital. Patient was encouraged to take fluids and oral intake once at home. Patient demonstrated understanding and thus was discharged home under stable condition Vital Signs/Physical Exam: Temp Pulse Resp BP Pulse Ox 98.3 F 66 17 184/86 H 93 07/02/18 12:00 07/02/18 12:00 07/02/18 12:00 07/02/18 12:00 07/02/18 12:00 General: Alert, In no apparent distress HEENT: Atraumatic, PERRLA, EOMI Neck: Supple, JVD not distended Respiratory: Clear to auscultation bilaterally, Normal air movement Cardiovascular: Regular rate/rhythm, Normal S1 S2 Gastrointestinal: Normal bowel sounds, No tenderness Musculoskeletal: No tenderness Integumentary: No rashes Neurological: Normal speech, Normal tone, Normal affect Lymphatics: No axilla or inguinal lymphadenopathy Laboratory Data at Discharge: WBC 6.6 K/uL (4.3-10.9) D 07/02/18 05:29 Hgb 13.1 g/dL (12.0-15.0) 07/02/18 05:29 Hct 39.3 % (36.0-45.0) 07/02/18 05:29 Plt Count 334 K/uL (152-406) 07/02/18 05:29 Sodium 140 mmol/L (136-145) 07/02/18 05:29 Potassium 3.8 mmol/L (3.5-5.1) 07/02/18 05:29 BUN 14 mg/dL (7-18) 07/02/18 05:29 Creatinine 0.80 mg/dL (0.55-1.3) 07/02/18 05:29 Glucose 106 mg/dL (74-106) 07/02/18 05:29 Magnesium 2.4 mg/dL (1.8-2.4) 07/02/18 05:29 Total Bilirubin 0.6 mg/dL (0.2-1.0) 06/29/18 04:54 AST 15 U/L (15-37) 06/29/18 04:54 ALT 12 U/L (12-78) 06/29/18 04:54 Alkaline Phosphatase 103 U/L (45-117) 06/29/18 04:54 Troponin I < 0.02 ng/mL (0.0-0.045) 06/28/18 17:30 Lipase 155 U/L (73-393) 06/28/18 17:30 Home Medications: ALPRAZolam [Xanax*] 2 mg PO DAILY 06/29/18 Levothyroxine [Synthroid*] 125 mcg PO DAILY 06/29/18 Methylphenidate HCl [Ritalin] 40 mg PO BID 06/29/18 Zolpidem Tartrate [Ambien*] 10 mg PO BEDTIME PRN 06/29/18 Diet: Regular Activity: Ad irwin Followup: Spencer REYNA,Dhruv Benjamin DO [Primary Care Provider] -
== END 2018-07-02 13:28 | disposition home or self-care (01) | DRG 392 ==
LOC: ER 16:59 → ERHOLD 21:07 → 2ND 22:14 → OBSVTOIN 06-30 11:46
PROVIDERS: ADMIT Internal Medicine; ATTEND Family Medicine
DX: K52.9 Noninfective gastroenteritis and colitis, unspecified (principal); R11.2 Nausea with vomiting, unspecified; E86.0 Dehydration; E03.9 Hypothyroidism, unspecified; I10 Essential (primary) hypertension
CPT/HCPCS: 36415; 71045; 74177; 80048; 80053; 80076; 81003; 83690; 83735; 84132; 84484; 85025; 93005; 96361; 96365; 96375; 99285; C9113; G0378; J0360; J0744; J1650; J2270; J2405; J2550; J3475; J7030; Q9967

== ENCOUNTER 2020-02-05 16:53 | Inpatient (IN) | payer BC, OTHER ==
--- OUTSIDE RECORDS SUMMARY | 2020-02-05 16:55 | XMS REPORT | Clinical Summary ---
:1960 Author Organization [facility] Address [address] [place] [address] Care Team Providers Name Role Phone Reynaldo Palmer DO Primary Care Provider Allergies No Known Allergies Medications Not on file Active Problems Not on file Social History Tobacco Use Types Packs/Day Years Used Date Never Smoker Alcohol Use Drinks/Week oz/Week Comments No Sex Assigned at Date Recorded Not on file Job Start Date Occupation Industry Not on file Not on file Not on file Travel History Travel Start Travel End No recent travel history available. Last Filed Vital Signs Not on file Plan of Treatment Health Maintenance Due Date Last Done Comments CERVICAL CANCER SCREENING 11/10/1979 BREAST CANCER SCREENING 2008 COLONOSCOPY SCREENING 2008 SHINGLES VACCINES (#1) 2008 INFLUENZA VACCINE 04/09/2020 Results Not on fileafter 02/04/2019 ([place]) [place], [place] [address] Advance Directives For more information, please contact: [phone] Type Date Recorded Patient Child Protective Services Specialist Explanati on Advance Directives, Living Will 04/19/2017 4:42 PM and Medical Power of Optician Manager
[2020-02-05] MEDS ORDERED: MORPHINE 4 MG/ML SYR ONE (17:21)
[2020-02-05] MEDS ORDERED: ONDANSETRON 4 MG/2 ML VIAL ONE ×2 (17:22→19:52)
[2020-02-05 17:52] LABS: Albumin 4.6 g/dL (3.4-5.0); Bilirubin Direct 0.1 mg/dL (0-0.2); Bilirubin Total 0.7 mg/dL (0.2-1.0); Magnesium 1.8 mg/dL (1.8-2.4); Potassium 3.6 mmol/L (3.5-5.1); Troponin (Emerg Dept Use Only) 0.03 ng/mL (0.0-0.045)
[2020-02-05 17:58] LABS: Absolute Lymphocytes (CBC) 1.8 K/uL (0.7-4.9); Basophils % 0.1 % (0-1.3); Hematocrit 48.2 % (36.0-45.0); Lymphocytes % 14.8 % (15.3-44.8); MPV 8.8 fL (7.6-11.3); Protime INR 1.01; RBC Red Blood Cell Count 5.15 M/uL (3.86-4.86)
--- NOTE | 2020-02-05 18:06 | RAD REPORT ---
EXAM DESCRIPTION: CT - Head Brain Wo Cont - 02/05/2020 5:45 pm CLINICAL HISTORY: Alteration of awareness/confusion COMPARISON: None TECHNIQUE: Computed axial tomography of the head was obtained. IV contrast was not requested. All CT scans are performed using dose optimization technique as appropriate and may include automated exposure control or mA/KV adjustment according to patient size. FINDINGS: An intracranial bleed is not seen . The ventricles are normal in caliber. No extra-axial fluid collection is noted. Fluid within the sinuses/ mastoids is not seen. IMPRESSION: No acute intracranial abnormality is seen. If patient's symptoms persist MRI of the bra in would be recommended.
[2020-02-05] MEDS ORDERED: Nicardipine/NS 25 MG/250 ML KIT IV ONE (18:17)
[2020-02-05] MEDS ORDERED: LORazepam 2 MG/ML VIAL ONE (18:17)
[2020-02-05] MEDS ORDERED: FAMOTIDINE 20 MG/2 ML VIAL IV ONE (18:18)
[2020-02-05] MEDS ORDERED: NA CHLORIDE 0.9% 1,000 ML ONE (18:18)
--- NOTE | 2020-02-05 18:19 | RAD REPORT ---
EXAM DESCRIPTION: CT - Angio Aorta For Dissection - 02/05/2020 5:57 pm CLINICAL HISTORY: . Chest and abd pain COMPARISON: 2018 CT abdomen TECHNIQUE: Computed tomography angiography of the chest, abdomen pelvis were obtained. 100 cc Isovue 370 was administered intravenously. Coronal and sagittal reconstruction were performed. MIP 3D reconstruction was performed All CT scans are performed using dose optimization technique as appropriate and may include automated exposure control or mA/KV adjustment according to patient size. FINDINGS: An aortic dissection is not seen. An aortic aneurysm is not displayed. The celiac, SMA and MARY are patent . Atherosclerotic disease A lung consolidation is not present. A pericardial effusion is not seen. A pleural effusion is not n oted. Moderate COPD The liver,spleen, pancreas adrenals kidneys demonstrate no significant abnormality. Small left manager urgent care ior diaphragmatic hernia. Small hiatal hernia Cholecystectomy. No evidence of diverticulitis IMPRESSION: Negative for an aortic dissection.
--- NOTE | 2020-02-05 18:45 | RAD REPORT ---
EXAM DESCRIPTION: [place] Single View02/05/2020 6:18 pm CLINICAL HISTORY: Chest pain COMPARISON: 2017 FINDINGS: The lungs are moderately hyperaerated. The lungs appear clear of acute infiltrate. The heart is normal size IMPRESSION: COPD without visualization of an acute abnormality
[2020-02-05] MEDS ORDERED: ACETAMINOPHEN 500 MG TAB PO PRN (19:01)
--- NOTE | 2020-02-05 19:08 | P.HP ---
Certification for Inpatient Patient admitted to: Inpatient With expected LOS: >2 Midnights Patient will require the following post-hospital care: None Practitioner: I am a practitioner with admitting privileges, knowledge of patient current condition, hospital course, and medical plan of care. Services: Services provided to patient in accordance with Admission requirements found in Title 42 Section 412.3 of the Code of Federal Regulations Patient History Date of Service: 02/06/20 Reason for admission: Chest pain, elevated blood pressure History of Present Illness: 59-year-old female with no significant past medical history other than anxiety came in today with chest discomfort. Patient says she started having nausea and vomiting followed by chest discomfort which has been going on since morning and has been progressively worsening and was brought to the ER. Pain is mostly located in the retrosternal area 6/10 in severity radiation to back and also to the left hand. Denies any diaphoresis No fever but associated with chills. Denies any previous history of CAD Family history of CAD Ex-smoker Allergies No Known Allergies Allergy (Verified 06/28/18 23:01) Home medications list reviewed: Yes Home Medications: ALPRAZolam [Xanax*] 2 mg PO DAILY 06/29/18 Levothyroxine [Synthroid*] 125 mcg PO DAILY 06/29/18 Zolpidem Tartrate [Ambien*] 12.5 mg PO BEDTIME PRN 06/29/18 - Past Medical/Surgical History Diabetic: No Past Medical History: Reviewed- Non-Contributory -: hypothyroid -: colitis -: HYPOTHROIDISM Past Surgical History: Reviewed- Non-Contributory -: hernia repair -: bowel resection - Family History Family History: Reviewed- Non-Contributory - Family History Mother -: Heart disease, Diabetes Father -: Heart disease - Social History Alcohol use: No CD- Drugs: No Caffeine use: Yes Review of Systems 10-point ROS is otherwise unremarkable Physical Examination - Vital Signs Temperature: 98.4 F Blood Pressure: 184/92 Pulse: 56 Respirations: 18 - Physical Exam General: Alert, In no apparent distress, Oriented x3 HEENT: Atraumatic, Normocephalic Neck: Supple, 2+ carotid pulse no bruit Respiratory: Clear to auscultation bilaterally, Normal air movement Cardiovascular: Normal pulses, Regular rate/rhythm Capillary refill: <2 Seconds Gastrointestinal: Soft and benign, W/out hepatosplenomegaly Musculoskeletal: No clubbing, No swelling Integumentary: No rashes, No significant lesion Neurological: Normal speech, Normal strength at 5/5 x4 extr Lymphatics: No axilla or inguinal lymphadenopathy - Studies Laboratory Data (last 24 hrs) 02/05/20 17:25: PT 11.9, INR 1.01 02/05/20 17:25: WBC 12.3 H, Hgb 15.8 H, Hct 48.2 H, Plt Count 351 02/05/20 17:25: Sodium 139, Potassium 3.6, BUN 14, Creatinine 1.14, Glucose 161 H, Magnesium 1.8 D, Total Bilirubin 0.7, AST 14 L, ALT 19, Alkaline Phosphatase 94, Lipase 69 L Assessment and Plan - Problems (Diagnosis) (1) Hypertensive urgency Current Visit: Yes Status: Acute (2) Chest pain Current Visit: Yes Status: Acute (3) Hypothyroidism Onset Date: 07/01/18 Current Visit: No Status: Chronic Qualifiers: - Advance Directives Does patient have a Living Will: No Does patient have a Durable POA for Healthcare: No Physician Review Additional Text: Hypertensive urgency Chest pain to rule out ACS Anxiety Hypothyroid is Plan Monitor under telemetry Trend cardiac enzymes Cardiology consult Will get an echocardiogram start on aspirin statin antihypertensives titrated Patient was started on Cardene drip in the ER Will try to wean off Continue home medications and titrate as needed GI/DVT prophylaxis Time Spent Managing Pts Care (In Minutes): 45
[2020-02-05] MEDS ORDERED: ASPIRIN 81 MG CHEWABLE TABLET ONE (19:36)
[2020-02-05] MEDS ORDERED: lisinopriL 10 MG TAB ONE (19:36)
[2020-02-05] MEDS ORDERED: AMLODIPINE 5 MG TAB ONE (19:36)
[2020-02-05] MEDS ORDERED: ENOXAPARIN 60 MG/0.6 ML SQ ONE (19:37)
[2020-02-05] MEDS: ONDANSETRON 4 MG/2 ML VIAL IV PRN (19:43)
[2020-02-05 20:41] LABS: CKMB Creatine Kinase MB < 1.0 ng/mL (0.3-3.6); Creatine Phosphokinase 33 U/L (26-192); Troponin I 0.09 ng/mL (0.0-0.045)
[2020-02-05] MEDS: METHYLPHENIDATE HCL 40 MG PO SCH (21:00)
[2020-02-05 21:40] VITALS: BMI 19.2
[2020-02-05] MEDS: HYDROCODONE/APAP 7.5/325 MG TAB PO PRN (22:12)
[2020-02-05] MEDS: PANTOPRAZOLE 40MG TABLET PO SCH (22:13)
[2020-02-05] MEDS: ASPIRIN EC 81 MG TAB PO SCH (22:13)
[2020-02-05] MEDS: carvediloL 6.25 MG TAB PO SCH (22:14)
[2020-02-05] MEDS: ZOLPIDEM TARTRATE 10 MG TABLET PO PRN (22:14)
[2020-02-05] MEDS: ATORVASTATIN 40 MG TAB PO SCH (22:14)
[2020-02-05] MEDS ORDERED: PROMETHAZINE INJ 25 MG/ML AMP IV ONE (22:33)
[2020-02-06] MEDS: HYDRALAZINE HCL 20 MG/ML VIAL IV PRN (00:17)
[2020-02-06 03:58] LABS: Absolute Lymphocytes (CBC) 2.2 K/uL (0.7-4.9); Basophils % 0.5 % (0-1.3); Hematocrit 41.2 % (36.0-45.0); Lymphocytes % 22.1 % (15.3-44.8); MPV 8.8 fL (7.6-11.3); RBC Red Blood Cell Count 4.47 M/uL (3.86-4.86)
[2020-02-06 04:08] LABS: CKMB Creatine Kinase MB 1.1 ng/mL (0.3-3.6); Troponin I 0.1 ng/mL (0.0-0.045)
[2020-02-06 04:10] LABS: Albumin 3.8 g/dL (3.4-5.0); Bilirubin Total 0.6 mg/dL (0.2-1.0); Potassium 3.7 mmol/L (3.5-5.1); Protein, Total 7.3 g/dL (6.4-8.2)
[2020-02-06 07:52] LABS: Urine Appearance CLEAR; Urine Bilirubin NEGATIVE (NEG); Urine Blood NEGATIVE (NEG); Urine Color YELLOW; Urine Glucose TRACE (NEG); Urine Protein NEGATIVE (NEG); Urine Specific Gravity >=1.030 (1.005-1.030); Urine Urobilinogen 0.2 mg/dL (0.2-1.0)
[2020-02-06 08:15] LABS: Urine Microscopic Reflex NO UMIC
[2020-02-06] MEDS: carvediloL 6.25 MG TAB PO SCH ×2 (09:00→20:51)
[2020-02-06] MEDS ORDERED: POTASSIUM CL SA 10 MEQ TAB PO ONE (09:00)
[2020-02-06] MEDS: METHYLPHENIDATE HCL 40 MG PO SCH ×2 (09:00→20:17)
[2020-02-06] MEDS: ENOXAPARIN 40 MG/0.4 ML SQ SCH (09:08)
[2020-02-06] MEDS: ALPRAZOLAM 1 MG TABLET PO SCH (09:09)
[2020-02-06] MEDS: PANTOPRAZOLE 40MG TABLET PO SCH ×2 (09:09→15:54)
[2020-02-06] MEDS: LEVOTHYROXINE SOD 0.125 MG TAB PO SCH (09:09)
[2020-02-06] MEDS: ASPIRIN EC 81 MG TAB PO SCH (09:09)
--- NOTE | 2020-02-06 11:11 | P.PN ---
Subjective Date of Service: 02/06/20 Chief Complaint: Chest pain, elevated blood pressure Subjective: No new changes, Improving Physical Examination - Vital Signs Temperature: 98.2 F Blood Pressure: 90/50 Pulse: 62 Respirations: 18 Pulse Ox (%): 94 - Physical Exam General: Alert, In no apparent distress HEENT: Atraumatic, Normocephalic Neck: Supple, 2+ carotid pulse no bruit Respiratory: Clear to auscultation bilaterally Cardiovascular: Normal pulses, Regular rate/rhythm Capillary refill: <2 Seconds Gastrointestinal: Soft and benign, W/out hepatosplenomegaly Musculoskeletal: No clubbing, No swelling Integumentary: No rashes Neurological: Normal speech, Normal strength at 5/5 x4 extr Lymphatics: No axilla or inguinal lymphadenopathy Rectal: Deferred - Studies Laboratory Data (last 24 hrs) 02/05/20 17:25: PT 11.9, INR 1.01 02/05/20 17:25: WBC 12.3 H, Hgb 15.8 H, Hct 48.2 H, Plt Count 351 02/05/20 17:25: Sodium 139, Potassium 3.6, BUN 14, Creatinine 1.14, Glucose 161 H, Magnesium 1.8 D, Total Bilirubin 0.7, AST 14 L, ALT 19, Alkaline Phosphatase 94, Lipase 69 L Laboratory Last Values WBC 12.3 K/uL (4.3-10.9) H 02/05/20 17:25 RBC 5.15 M/uL (3.86-4.86) H 02/05/20 17:25 Hgb 15.8 g/dL (12.0-15.0) H 02/05/20 17:25 Hct 48.2 % (36.0-45.0) H 02/05/20 17:25 MCV 93.5 fL (80-100) D 02/05/20 17:25 MCH 30.7 pg (27.0-35.0) 02/05/20 17:25 MCHC 32.8 g/dL (32.0-36.0) 02/05/20 17:25 RDW 13.8 % (12.1-15.2) 02/05/20 17:25 Plt Count 351 K/uL (152-406) 02/05/20 17:25 MPV 8.8 fL (7.6-11.3) 02/05/20 17:25 Neutrophils % 83.1 % (41.7-73.7) H 02/05/20 17:25 Lymphocytes % 14.8 % (15.3-44.8) L 02/05/20 17:25 Monocytes % 2.0 % (3.3-12.3) L 02/05/20 17:25 Eosinophils % 0.0 % (0-4.4) 02/05/20 17:25 Basophils % 0.1 % (0-1.3) 02/05/20 17:25 Absolute Neutrophils 10.2 K/uL (1.8-8.0) H 02/05/20 17:25 Absolute Lymphocytes 1.8 K/uL (0.7-4.9) 02/05/20 17:25 Absolute Monocytes 0.2 K/uL (0.1-1.3) 02/05/20 17:25 Absolute Eosinophils 0.0 K/uL (0-0.5) 02/05/20 17:25 Absolute Basophils 0.0 K/uL (0-0.5) 02/05/20 17:25 PT 11.9 SECONDS (9.5-12.5) 02/05/20 17:25 INR 1.01 02/05/20 17:25 Sodium 139 mmol/L (136-145) 02/05/20 17:25 Potassium 3.6 mmol/L (3.5-5.1) 02/05/20 17:25 Chloride 104 mmol/L (98-107) 02/05/20 17:25 Carbon Dioxide 21 mmol/L (21-32) 02/05/20 17:25 BUN 14 mg/dL (7-18) 02/05/20 17:25 Creatinine 1.14 mg/dL (0.55-1.3) 02/05/20 17:25 Estimated GFR 48 mL/min (=/>90) L 02/05/20 17:25 Glucose 161 mg/dL (74-106) H 02/05/20 17:25 Calcium 9.7 mg/dL (8.5-10.1) 02/05/20 17:25 Magnesium 1.8 mg/dL (1.8-2.4) D 02/05/20 17:25 Total Bilirubin 0.7 mg/dL (0.2-1.0) 02/05/20 17:25 Direct Bilirubin 0.1 mg/dL (0-0.2) 02/05/20 17:25 AST 14 U/L (15-37) L 02/05/20 17:25 ALT 19 U/L (12-78) 02/05/20 17:25 Alkaline Phosphatase 94 U/L (45-117) 02/05/20 17:25 Rapid Troponin I 0.03 ng/mL (0.0-0.045) 02/05/20 17:25 NT-Pro-B Natriuret Pep 480 pg/mL (<125) H 02/05/20 17:25 Serum Total Protein 9.0 g/dL (6.4-8.2) H 02/05/20 17:25 Albumin 4.6 g/dL (3.4-5.0) 02/05/20 17:25 Globulin 4.4 g/dL (2.3-3.5) H 02/05/20 17:25 Albumin/Globulin Ratio 1.0 (1.1-1.8) L 02/05/20 17:25 Lipase 69 U/L (73-393) L 02/05/20 17:25 Assessment & Plan - Problems (Diagnosis) (1) Hypertensive urgency Current Visit: Yes Status: Acute (2) Chest pain Current Visit: Yes Status: Acute (3) Hypothyroidism Onset Date: 07/01/18 Current Visit: No Status: Chronic Qualifiers: Physician Review Additional Text: Hypertensive urgency NSTEMI Anxiety Hypothyroid is Plan Monitor under telemetry Trended cardiac enzymes Cardiology consult Awaiting echocardiogram on aspirin statin Antihypertensives titrated Continue home medications and titrate as needed GI/DVT prophylaxis Disposition plan : Awaiting cardiology recommendations Echocardiogram pending Possible Dc home once cleared by cardiology Time Spent Managing Pts Care (In Minutes): 35
[2020-02-06 11:48] LABS: CKMB Creatine Kinase MB 1.9 ng/mL (0.3-3.6); Troponin I 0.04 ng/mL (0.0-0.045)
--- NOTE | 2020-02-06 12:55 | EKG ---
Test Date: 2020-02-05 Test Time: 17:04:32 Compensation Administrator: MARIJA MEASUREMENT RESULTS: Intervals: Rate: 50 AK: 104 QRSD: 94 QT: 472 QTc: 430 Vona: P: -22 AK: 104 QRS: 4 T: -22 INTERPRETIVE STATEMENTS: Sinus bradycardia with short AK Otherwise normal ECG Electronically Signed On 02-06-20 12:54:43 CDT by Kody Martinez
[2020-02-06] MEDS: ONDANSETRON 4 MG/2 ML VIAL IV PRN ×2 (13:40→19:14)
[2020-02-06] MEDS: MORPHINE 2 MG/ML SYR IV PRN (18:11)
--- NOTE | 2020-02-06 18:14 | CON ---
Date of Consultation: 02/06/2020 Reason For Consultation: Chest pain. History Of Present Illness: This is a 59-year-old female with a history of hypothyroidism, significa nt family history of coronary artery disease, presented with chest pain, felt a pressure like an elep hant sitting on the chest, radiates to the left upper extremity, lasted about 1 to 1-1/2 hours, felt nauseated and vomiting as well. Then, started feeling better, has no further episodes since yesterda y. She rated the pain as 6/10. No fever or cough. She does not report pain with activity. Otherwi se, patient does not have any other medical problems. Medications: Refer to reconciliation sheet for detailed list. Allergies: NO KNOWN DRUG ALLERGIES. Past Surgical History: None. Past Medical History: Hypothyroidism. Social History: She does not smoke or drink. Does not use any drugs. Family History: No premature coronary artery disease or cancer. Review of Systems: All systems reviewed and they were negative except for above mentioned in the HPI. Physical Examination: Vital Signs: Temperature is 98.4, pulse is 54, breathing at 18, blood pressure is 184/92. Investigations: EKG is without acute specific abnormalities. Troponin peaked at 0.1. Creatinine 1. 25. Assessment And Plan: 1.Chest pain. Typical presentation pressure-like with nausea and vomiting, radiation to shoulder wi th a troponin leak. Recommend further evaluation with coronary angiogram, will be scheduled for Mond ay morning. Meanwhile, continue to monitor on telemetry. Start aspirin 81 mg and blood pressure con trol. 2.Hypertensive crisis with resultant chest pain. The patient's blood pressure is being managed appr opriately. Recommend beta-brodie in the regimen as part of management of her chest pain that could represent an acute coronary syndrome versus unstable angina. Thank you for this consultation. /BHANU Voice ID: [id number] Report ID: [id number]
[2020-02-06] MEDS: ATORVASTATIN 40 MG TAB PO SCH (20:52)
[2020-02-07 06:17] LABS: Potassium 3.7 mmol/L (3.5-5.1)
[2020-02-07] MEDS: ONDANSETRON 4 MG/2 ML VIAL IV PRN ×2 (08:16→13:08)
[2020-02-07] MEDS: ASPIRIN EC 81 MG TAB PO SCH (08:44)
[2020-02-07] MEDS: carvediloL 6.25 MG TAB PO SCH ×2 (08:44→20:57)
[2020-02-07] MEDS: ALPRAZOLAM 1 MG TABLET PO SCH (08:44)
[2020-02-07] MEDS: PANTOPRAZOLE 40MG TABLET PO SCH ×2 (08:45→16:30)
[2020-02-07] MEDS: LEVOTHYROXINE SOD 0.125 MG TAB PO SCH (08:45)
[2020-02-07] MEDS: ENOXAPARIN 40 MG/0.4 ML SQ SCH (08:45)
[2020-02-07] MEDS: METHYLPHENIDATE HCL 40 MG PO SCH ×2 (09:00→19:33)
[2020-02-07] MEDS ORDERED: POTASSIUM CL SA 10 MEQ TAB PO ONE (09:00)
[2020-02-07] MEDS: MORPHINE 2 MG/ML SYR IV PRN ×3 (10:06→20:56)
[2020-02-07] MEDS: PROMETHAZINE INJ 25 MG/ML AMP IV PRN ×2 (10:09→15:31)
--- NOTE | 2020-02-07 11:42 | PN ---
Date of Progress Note: 02/07/2020 Patient seen and examined. Chart reviewed and case discussed with RN. Patient still having signific ant amount of nausea, vomiting, not controlled with Zofran, complaining of pain. This starts in her sternum, radiates up to the chest and toward the left side. Also reports poor vision, however, that is due to her cataract. Medications: List reviewed. Physical Examination: Vital Signs: Temperature 97.8, heart rate 52, blood pressure initially as low as 91/55 improved to 1 30/85, respirations 15, O2 95% on room air. General: Awake, alert, oriented x3, ill-appearing female, appears older than stated age. Frail, cac hectic. BMI 19. CV: S1, S2. Sinus bradycardia. Respiratory: No wheezing or stridor. Clear to auscultation bilaterally. No use of accessory muscle s. Gastrointestinal: Abdomen is soft, nontender, nondistended. Positive bowel sounds. Extremities: No clubbing, cyanosis, or edema. No calf tenderness. Neuro: Cranial nerves 3 through 12 intact grossly. No focal neurological deficit. Speech is normal . Psych: Mood is anxious. Affect is congruent with mood. Insight and judgment are good. Laboratory Data: Sodium 140, potassium 3.7, chloride 106, CO2 of 25, BUN 35, creatinine 1.19, glucos e 93, calcium 8.8. Assessment: 59-year-old female with: 1.Hypertensive emergency with elevated troponin levels and chest pain. Blood pressure now significa ntly improved. A little bit hypotensive this morning. Blood pressure now back up to the 130s. Reyna ent also bradycardic. 2.Chest pain. Continue on chest pain guidelines. Patient has elevated cardiac enzymes. Plan is fo r cardiac catheterization. Echocardiogram is pending at this time. 3.Hypothyroidism. We will continue Synthroid. 4.Generalized anxiety disorder. Continue home medications. Plan, we will continue to monitor close ly. 5.Intractable nausea and vomiting. Patient is still vomiting with Zofran. We will add Phenergan p. r.n. to alternate with Zofran. 6.Deep vein thrombosis prophylaxis with Lovenox. We will check lipid panel in a.m. SA/MODL Voice ID: [id number] Report ID: [id number]
[2020-02-07] MEDS: D5.45NS W/KCL 20MEQ 20 MEQ/1,000 ML BAG IV SCH (15:44)
[2020-02-07] MEDS: ZOLPIDEM TARTRATE 10 MG TABLET PO PRN (20:57)
[2020-02-07] MEDS: ATORVASTATIN 40 MG TAB PO SCH (20:57)
[2020-02-08] MEDS: D5.45NS W/KCL 20MEQ 20 MEQ/1,000 ML BAG IV SCH ×3 (01:02→21:00)
[2020-02-08] MEDS: carvediloL 6.25 MG TAB PO SCH ×2 (05:57→18:13)
[2020-02-08] MEDS: PANTOPRAZOLE 40MG TABLET PO SCH ×2 (05:57→16:31)
[2020-02-08] MEDS: ASPIRIN EC 81 MG TAB PO SCH (05:58)
[2020-02-08 06:24] LABS: Potassium 3.9 mmol/L (3.5-5.1)
[2020-02-08] MEDS ORDERED: HEPA 1000U/500MLS 2,000 UNIT/1,000 ML BAG IV ONE (07:13)
[2020-02-08] MEDS ORDERED: LIDOCAINE 1% 20 ML MDV ONE (07:13)
[2020-02-08] MEDS ORDERED: HEPARIN 5000 UNIT/ML 1 ML VIAL ONE ×2 (07:38→07:40)
[2020-02-08] MEDS ORDERED: MIDAZOLAM HCL 2 MG/2 ML INJ ONE ×2 (07:38→08:14)
[2020-02-08] MEDS ORDERED: NICARDIPINE HCL 25 MG/10 ML IV ONE (07:39)
[2020-02-08] MEDS ORDERED: ATROPINE SULF 1 MG/10 ML SYR IV ONE (07:39)
[2020-02-08] MEDS ORDERED: FENTANYL CITR 100 MCG/2 ML ONE (07:39)
[2020-02-08] MEDS ORDERED: NITROGLYCERIN 100 MCG/ML SYR (for cath lab use only) IV ONE (07:39)
[2020-02-08] MEDS ORDERED: NITROGLYCERIN/D5W 0 MG/0 ML BTL IV ONE (07:39)
[2020-02-08] MEDS ORDERED: NA CHLORIDE 0.9% 500 ML ONE (07:44)
[2020-02-08] MEDS: ENOXAPARIN 40 MG/0.4 ML SQ SCH (09:00)
[2020-02-08] MEDS: METHYLPHENIDATE HCL 40 MG PO SCH ×2 (09:00→21:00)
[2020-02-08] MEDS: ALPRAZOLAM 1 MG TABLET PO SCH (09:59)
[2020-02-08] MEDS: ONDANSETRON 4 MG/2 ML VIAL IV PRN (10:02)
[2020-02-08] MEDS: LEVOTHYROXINE SOD 0.125 MG TAB PO SCH (10:02)
--- NOTE | 2020-02-08 11:18 | OP ---
Date of Procedure: 02/08/2020 Surgeon: STEVAN PASTOR Tripe Cooker: Stevan Pastor. Name Of Procedures: 1.Selective coronary angiogram. 2.Left heart catheterization. Indication: [id number] myocardial infarction. Total Moderate Sedation Time: 15 minutes. Access: Right femoral artery, 6-Kittitian, closed with StarClose. Culinary Artist: Kody Martinez MD Description Of Procedure: Patient was brought into the cardiac catheterization laboratory after info rmed consent was signed. The patient was prepped and draped in usual sterile fashion and under the g uidance of ultrasound and fluoroscopy, the right femoral artery was accessed and a 6-Kittitian Mancelona sheath was inserted. Subsequently, we took a 6-Kittitian JL-4 catheter over a J-wire into the aortic ro ot, engaged the left main coronary artery, and obtained standard views. Then, we exchanged to a JR4 6-Kittitian JR4 catheter and engaged the right coronary artery and obtained standard views. The cathete r over the wire was advanced into the left ventricle crossing the aortic valve and LVEDP was recorded at 5 mmHg and there was no gradient upon pullback. Then, we removed all wires and catheters and the sheath out of the body and we closed the access using StarClose with good hemostasis. Findings: 1.Proximal LAD 30% to 40% stenosis. 2.Mid left circumflex 40% stenosis. 3.Mid RCA diffuse 30% to 40% stenosis. Impression: [id number] nonobstructive coronary artery disease. Recommendations: Aggressive medical management of coronary artery disease. SR/MODL Voice ID: [id number] Report ID: [id number]
[2020-02-08] MEDS: HYDROCODONE/APAP 7.5/325 MG TAB PO PRN (13:23)
[2020-02-08] MEDS ORDERED: PROMETHAZINE INJ 25 MG/ML AMP IM ONE (15:00)
--- NOTE | 2020-02-08 17:17 | ER ---
Nurse's Notes [facility] Name: Sirisha Iraj Age: 59 yrs Sex: Female : 1960 Arrival Date: 02/05/2020 Time: 17:03 Bed 8 Private MD: Diagnosis: Other chest pain;Essential (primary) hypertension;Bradycardia, unspecified;Altered mental status, unspecified-resolved Presentation: 02/04 17:08 Chief complaint: Pt found screaming in lobby, "Help me!! My chest hurts!! AHHHHHHH!!" ph Taken to ED bed 8, appears anxious, c/o pain in center of chest, SOB, N/V, denies cardiac hx, reports that symptoms began this morning. Coronavirus screen: Patient denies a cough. Patient reports shortness of breath or difficulty breathing. Patient denies measured and/or subjective temperature greater than 100.4F prior to today's visit. Patient denies travel on a cruise ship or to a country the [facility] currently lists as an affected area. Patient denies contact with known and/or suspected case of COVID-19. Ebola Screen: No symptoms or risks identified at this time. Initial Sepsis Screen: Does the patient meet any 2 criteria? No. Patient's initial sepsis screen is negative. Does the patient have a suspected source of infection? No. Patient's initial sepsis screen is negative. Risk Assessment: Do you want to hurt yourself or someone else? Patient reports no desire to harm self or others. Onset of symptoms was February 05, 2020. 17:08 Method Of Arrival: Wheelchair ph 17:08 Acuity: MING 2 ph Historical: - Allergies: 17:13 No Known Allergies; ph - PMHx: 17:13 Hypothyroidism; Anxiety; ph - PSHx: 17:13 Cholecystectomy; ph - Immunization history:: Adult Immunizations unknown. - Family history:: not pertinent. - Social history:: Smoking status: unknown. Screenin:20 Abuse screen: Denies threats or abuse. Denies injuries from another. Nutritional jl7 screening: No deficits noted. Tuberculosis screening: No symptoms or risk factors identified. Fall Risk IV access (20 points). Total Ervin Fall Scale indicates High Risk Score (45 or more points). Fall prevention measures have been instituted. Side Rails Up X 2 Placed Close to Nursing Station Frequent Obs/Assessments Occuring Family Present and informed to notify staff if the need to leave the bedside As available patient and family educated on Fall Prevention Program and Strategies. Assessment: 17:10 General: Appears in no apparent distress. uncomfortable, Behavior is cooperative, jl7 anxious, crying, restless. Pain: Complains of pain in mid-sternal area Pain radiates to thoracic area Pain currently is 10 out of 10 on a pain scale. Quality of pain is described as pressure, Pain began this morning Is continuous. Neuro: Level of Consciousness is awake, alert, obeys commands, Oriented to person, place, time, situation. Cardiovascular: Patient's skin is warm and dry. Respiratory: Airway is patent Respiratory effort is even, unlabored, Respiratory pattern is regular, tachypnea. GI: Pt is actively vomiting bile, Reports nausea. Derm: Skin is pink, warm \\T\\ dry. 19:45 Reassessment: Patient complaint of nausea; See Dónde for documentation of meds lp1 administered. General: Appears in no apparent distress. Behavior is anxious. Pain: Denies pain. Neuro: Level of Consciousness is awake, alert, obeys commands, Oriented to person, place, situation. Cardiovascular: Patient's skin is warm and dry. Respiratory: Respiratory effort is even, Respiratory pattern is regular. GI: Reports nausea. : No signs and/or symptoms were reported regarding the genitourinary system. EENT: No signs and/or symptoms were reported regarding the EENT system. Derm: Skin is intact, Skin is dry, Skin is normal. Musculoskeletal: No deficits noted. 20:15 Reassessment: Patient appears in no apparent distress at this time. Nausea improved at lp1 this time; Aware of pending admission. 20:20 Reassessment: Attempted to call report, nurse unavailable. lp1 20:35 Reassessment: nurse unavailable to take report. lp1 Vital Signs: 17:08 BP 215 / 87; Pulse 53; Resp 20; Temp 98.4; Pulse Ox 100% on R/A; Weight 63.5 kg; ph 17:30 BP 214 / 99; Pulse 55; Resp 24; Pulse Ox 100% ; jl7 18:00 BP 204 / 74; Pulse 66; Resp 19; Pulse Ox 100% ; jl7 18:20 BP 200 / 97; Pulse 62; Resp 22; Pulse Ox 100% ; jl7 18:36 BP 173 / 85; Pulse 79; Resp 24; Pulse Ox 100% ; jl7 19:30 BP 191 / 100; Pulse 82; Resp 22; Pulse Ox 97% on R/A; lp1 19:53 BP 175 / 94; Pulse 71; Resp 20; Temp 98.6(O); Pulse Ox 98% on R/A; Pain 0/10; lp1 20:35 BP 176 / 84; Pulse 73; Resp 21; Pulse Ox 96% on R/A; lp1 ED Course: 17:03 Patient arrived in ED. ss 17:09 Saman Pedroza MD is Attending Physician. yue 17:10 Patient has correct armband on for positive identification. Placed in gown. Bed in low jl7 position. Call light in reach. Side rails up X2. equipment monitor phototypesetting on. Pulse ox on. NIBP on. 17:10 Warm blanket given. jl7 17:10 Patient maintains SpO2 saturation greater than 95% on room air. jl7 17:11 Triage completed. ph 17:13 Arm band placed on Patient placed in an exam room. ph 17:47 CT Head Brain wo Cont In Process Unspecified. EDMS 17:57 CT Aorta for Dissection In Process Unspecified. EDMS 18:06 Hilda Segundo, RN is Primary Nurse. jl7 18:10 Inserted saline lock: 22 gauge in right antecubital area, using aseptic technique. jl7 Blood collected. 18:20 XRAY Chest (1 view) In Process Unspecified. EDMS 18:40 Phani Baig MD is Hospitalizing Provider. yue 20:34 No provider procedures requiring assistance completed. Patient admitted, IV remains in lp1 place. Administered Medications: Discontinued: Cardene 5 mg/hr IV at per protocol continuous; 5mg/hr 17:24 Drug: Zofran (Ondansetron) 4 mg Route: IVP; Site: left antecubital; ss 18:33 Follow up: Response: No adverse reaction jl7 17:27 Drug: morphine 4 mg Route: IVP; Site: left antecubital; ss 18:33 Follow up: Response: No adverse reaction jl7 18:10 Drug: NS 0.9% 1000 ml Route: IV; Rate: 125 ml/hr; Site: right antecubital; jl7 19:51 Follow up: IV Status: Infusion continued upon admission lp1 18:10 Drug: Ativan 1 mg Route: IVP; Site: right antecubital; jl7 18:18 Follow up: Response: No adverse reaction; No change in condition jl7 18:11 Drug: Pepcid 20 mg Route: IVP; Site: right antecubital; jl7 18:33 Follow up: Response: No adverse reaction jl7 18:20 Drug: Ativan 1 mg Route: IVP; Site: right antecubital; 7 18:34 Follow up: Response: No adverse reaction; Marked relief of symptoms jl7 18:25 Drug: Cardene 5 mg/hr Route: IV; Rate: per protocol; Site: right antecubital; jl7 18:33 Follow up: Response: Blood pressure is lowered; IV Status: Infusion continued jl7 19:41 Drug: Lisinopril 10 mg Route: PO; lp1 20:36 Follow up: Response: No adverse reaction lp1 19:41 Drug: Aspirin Chewable Tablet 162 mg Route: PO; lp1 20:36 Follow up: Response: No adverse reaction lp1 19:41 Drug: Lovenox 1 mg/kg Route: Sub-Q; Site: right lower abdomen; lp1 20:36 Follow up: Response: No adverse reaction lp1 19:41 Drug: Norvasc 5 mg Route: PO; lp1 20:35 Follow up: Response: No adverse reaction lp1 Outcome: 18:41 Decision to Hospitalize by Provider. [facility] 20:34 Condition: stable lp1 20:34 Instructed on the need for admit. 21:12 Admitted to Med/surg via wheelchair, room 231, with chart, Report called to JOEY Wren lp1 21:26 Patient left the ED. lp1 Signatures: Dispatcher [employer] EDMS Saman Pedroza MD MD cha Smirch, Shelby, RN RN ss Pena, Laura, RN RN lp1 Xi Toledo RN RN ph Leal, Jahala, RN RN jl7
--- NOTE | 2020-02-08 17:17 | EDPHYS ---
Physician Documentation [facility] Name: Sirisha Iraj Age: 59 yrs Sex: Female : 1960 Arrival Date: 02/05/2020 Time: 17:03 Bed 8 Private MD: ED Physician Saman Pedroza HPI: 02/04 17:18 This 59 yrs old Female presents to ER via Wheelchair with complaints of Chest yue Pain. 17:18 The patient or guardian reports chest pain that is located primarily in the epigastric yue area, anterior chest wall, bilaterally. Onset: this morning. The pain radiates to back. Associated signs and symptoms: Pertinent positives: abdominal pain, nausea, vomiting, ams. The chest pain is described as a pressure. Duration: The patient or guardian reports a single episode, that is still ongoing, and worsening. Modifying factors: The symptoms are alleviated by nothing. the symptoms are aggravated by nothing. Severity of pain: At its worst the pain was moderate severe in the emergency department the pain is unchanged. The patient has not experienced similar symptoms in the past. Historical: - Allergies: 17:13 No Known Allergies; ph - PMHx: 17:13 Hypothyroidism; Anxiety; ph - PSHx: 17:13 Cholecystectomy; ph - Immunization history:: Adult Immunizations unknown. - Family history:: not pertinent. - Social history:: Smoking status: unknown. ROS: 17:18 Eyes: Negative for injury, pain, redness, and discharge, ENT: Negative for injury, yue pain, and discharge, Neck: Negative for injury, pain, and swelling, Respiratory: Negative for shortness of breath, cough, wheezing, and pleuritic chest pain, Abdomen/GI: Negative for abdominal pain, nausea, vomiting, diarrhea, and constipation, : Negative for injury, bleeding, discharge, and swelling, MS/Extremity: Negative for injury and deformity, Skin: Negative for injury, rash, and discoloration, Psych: Negative for depression, anxiety, suicide ideation, homicidal ideation, and hallucinations, Allergy/Immunology: Negative for hives, rash, and allergies, Endocrine: Negative for neck swelling, polydipsia, polyuria, polyphagia, and marked weight changes, Hematologic/Lymphatic: Negative for swollen nodes, abnormal bleeding, and unusual bruising. 17:18 Constitutional: Positive for malaise. 17:18 Cardiovascular: Positive for chest pain. 17:18 Abdomen/GI: Positive for abdominal pain, nausea and vomiting. 17:18 Back: Positive for pain at rest, of the thoracic area and lumbar area. Exam: 17:18 Constitutional: This is a well developed, well nourished patient who is awake, alert, yue and in no acute distress. Head/Face: Normocephalic, atraumatic. Eyes: Pupils equal round and reactive to light, extra-ocular motions intact. Lids and lashes normal. Conjunctiva and sclera are non-icteric and not injected. Cornea within normal limits. Periorbital areas with no swelling, redness, or edema. ENT: Nares patent. No nasal discharge, no septal abnormalities noted. Tympanic membranes are normal and external auditory canals are clear. Oropharynx with no redness, swelling, or masses, exudates, or evidence of obstruction, uvula midline. Mucous membranes moist. Neck: Trachea midline, no thyromegaly or masses palpated, and no cervical lymphadenopathy. Supple, full range of motion without nuchal rigidity, or vertebral point tenderness. No Meningismus. Chest/axilla: Normal chest wall appearance and motion. Nontender with no deformity. No lesions are appreciated. Respiratory: Lungs have equal breath sounds bilaterally, clear to auscultation and percussion. No rales, rhonchi or wheezes noted. No increased work of breathing, no retractions or nasal flaring. Abdomen/GI: Soft, non-tender, with normal bowel sounds. No distension or tympany. No guarding or rebound. No evidence of tenderness throughout. Back: No spinal tenderness. No costovertebral tenderness. Full range of motion. Female : Normal external genitalia. Skin: Warm, dry with normal turgor. Normal color with no rashes, no lesions, and no evidence of cellulitis. MS/ Extremity: Pulses equal, no cyanosis. Neurovascular intact. Full, normal range of motion. Psych: Awake, alert, with orientation to person, place and time. Behavior, mood, and affect are within normal limits. 17:18 Cardiovascular: Rate: bradycardic, Rhythm: regular, Pulses: Pulses are 4+ in bilateral radial, brachial, femoral, popliteal, posterior tibial and and dorsalis pedis arteries.. Heart sounds: normal, Edema: is not appreciated, JVD: is not appreciated. 17:18 Skin: Appearance: Color: normal in color, Temperature: normal temperature, Moisture: normal moisture, petechiae, not noted, ecchymosis, not noted. 17:18 Neuro: Orientation: is normal, Mentation: is normal, appropriate for stated age, no acute changes, Memory: is normal, appropriate for stated age, no acute changes, Cranial nerves: grossly normal, is grossly normal based on the patient's age, no acute changes, Cerebellar function: is grossly normal, is grossly normal based on the patient's age, no acute changes, Motor: is normal, is grossly normal based on the patient's age, no acute changes, moves all fours, strength is 5/5 in all extremities, Sensation: no obvious gross deficits, Gait: not tested. Deep tendon reflexes are 2+ (normal) in the bilateral brachioradialis, bicep, tricep and patellar and Achilles tendons, Babinski testing is normal, seizure activity, is not displayed by the patient. 18:41 ECG was reviewed by the Attending Physician. [facility] Vital Signs: 17:08 BP 215 / 87; Pulse 53; Resp 20; Temp 98.4; Pulse Ox 100% on R/A; Weight 63.5 kg; ph 17:30 BP 214 / 99; Pulse 55; Resp 24; Pulse Ox 100% ; jl7 18:00 BP 204 / 74; Pulse 66; Resp 19; Pulse Ox 100% ; jl7 18:20 BP 200 / 97; Pulse 62; Resp 22; Pulse Ox 100% ; jl7 18:36 BP 173 / 85; Pulse 79; Resp 24; Pulse Ox 100% ; jl7 19:30 BP 191 / 100; Pulse 82; Resp 22; Pulse Ox 97% on R/A; lp1 19:53 BP 175 / 94; Pulse 71; Resp 20; Temp 98.6(O); Pulse Ox 98% on R/A; Pain 0/10; lp1 20:35 BP 176 / 84; Pulse 73; Resp 21; Pulse Ox 96% on R/A; lp1 MDM: 17:10 Patient medically screened. [facility] 17:24 Data reviewed: vital signs, nurses notes, lab test result(s), EKG, radiologic studies, [facility] CT scan, plain films. 18:42 Differential diagnosis: abnormal EKG, acute myocardial infarction, coronary artery yue disease esophagitis, hiatal hernia, pulmonary embolus, stable angina, thoracic aortic disection, unstable angina. HEART Score: History: Slightly Suspicious (0), ECG: Non specific repolarization disturbance / LBTB / PM (1), Age: > 45 and < 65 years (1), Risk Factors: No Risk Factors Known (0), Troponin: < or = 1 x Normal Limit (0), Total Score = 0. The patient was given aspirin in the Emergency Department. The patient's deep vein thrombosis risk score was calculated as follows: Total Score: 0. This patient was found to be at low risk for a deep vein thrombosis by using the Well's assessment criteria. The patient's pulmonary embolism risk score was calculated as follows: Total Score: 0-2 points. This patient was found to be at low risk for a pulmonary embolism by using the Well's assessment criteria. BALJIT Risk Score: TOTAL SCORE = 0. Data interpreted: senior ios developer: rate is 79 beats/min, rhythm is normal sinus rhythm, Pulse oximetry: on 2L(s) per nasal canula, is 100 %. Test interpretation: by ED physician or midlevel provider: ECG, plain radiologic studies. Counseling: I had a detailed discussion with the patient and/or guardian regarding: the historical points, exam findings, and any diagnostic results supporting the discharge/admit diagnosis, the presence of at least one elevated blood pressure reading (>120/80) during this emergency department visit, lab results, radiology results, the need for further work-up and treatment in the hospital. Medication response: Zofran partially relieved the patient's nausea. Response to treatment: the patient's symptoms have markedly improved after treatment, the patient's condition has returned to base line. ED course: ams, cp, back pain , dissection ro, mental status back to normal , labs and studies explained, will admit to dr mcguire, he agrees with plan and all labs ordered, he will consult dr torres and his team. 02/04 17:16 Order name: Basic Metabolic Panel; Complete Time: 17:57 yue 02/04 17:16 Order name: CBC with Diff; Complete Time: 18:34 yue 02/04 17:16 Order name: LFT's; Complete Time: 17:57 02/04 17:16 Order name: Magnesium; Complete Time: 17:57 02/04 17:16 Order name: NT PRO-BNP; Complete Time: 17:57 [facility] 02/04 17:16 Order name: PT-INR; Complete Time: 18:34 [facility] 02/04 17:16 Order name: Troponin (emerg Dept Use Only); Complete Time: 17:57 [facility] 02/04 17:16 Order name: XRAY Chest (1 view) [facility] 02/04 17:16 Order name: Lipase; Complete Time: 17:57 [facility] 02/04 17:16 Order name: CT Head Brain wo Cont; Complete Time: 18:34 [facility] 02/04 19:06 Order name: CKMB Creatine Kinase MB [facility] 02/04 19:06 Order name: Creatine Phosphokinase [facility] 02/04 19:06 Order name: Troponin I [facility] 02/04 17:16 Order name: EKG; Complete Time: 17:18 [facility] 02/04 17:16 Order name: Cardiac monitoring; Complete Time: 17:30 [facility] 02/04 17:16 Order name: CT Aorta for Dissection; Complete Time: 18:34 [facility] 02/04 19:05 Order name: CONS Physician Consult [facility] 02/04 19:05 Order name: Heart Healthy [facility] 02/04 17:16 Order name: EKG - Nurse/Tech; Complete Time: 17:30 [facility] 02/04 17:16 Order name: IV Saline Lock; Complete Time: 17:30 [facility] 02/04 17:16 Order name: Labs collected and sent; Complete Time: 17:30 [facility] 02/04 17:16 Order name: O2 Per Protocol; Complete Time: 17:30 [facility] 02/04 17:16 Order name: O2 Sat Monitoring; Complete Time: 17:30 [facility] 02/04 17:16 Order name: IV Saline Lock - Large Bore; Complete Time: 19:48 [facility] EC:41 Rate is 50 beats/min. Rhythm is regular. QRS [place] is Normal. CA interval is shortened yue at 104 msec. QRS interval is normal. QT interval is normal. No Q waves. T waves are Normal. No ST changes noted. Clinical impression: NSR w/ Non-specific ST/T Changes, Sinus bradycardia, and No evidence of ischemia. Interpreted by me. Reviewed by me. Administered Medications: Discontinued: Cardene 5 mg/hr IV at per protocol continuous; 5mg/hr 17:24 Drug: Zofran (Ondansetron) 4 mg Route: IVP; Site: left antecubital; ss 18:33 Follow up: Response: No adverse reaction jl7 17:27 Drug: morphine 4 mg Route: IVP; Site: left antecubital; ss 18:33 Follow up: Response: No adverse reaction jl7 18:10 Drug: NS 0.9% 1000 ml Route: IV; Rate: 125 ml/hr; Site: right antecubital; jl7 19:51 Follow up: IV Status: Infusion continued upon admission lp1 18:10 Drug: Ativan 1 mg Route: IVP; Site: right antecubital; jl7 18:18 Follow up: Response: No adverse reaction; No change in condition jl7 18:11 Drug: Pepcid 20 mg Route: IVP; Site: right antecubital; jl7 18:33 Follow up: Response: No adverse reaction jl7 18:20 Drug: Ativan 1 mg Route: IVP; Site: right antecubital; jl7 18:34 Follow up: Response: No adverse reaction; Marked relief of symptoms jl7 18:25 Drug: Cardene 5 mg/hr Route: IV; Rate: per protocol; Site: right antecubital; jl7 18:33 Follow up: Response: Blood pressure is lowered; IV Status: Infusion continued jl7 19:41 Drug: Lisinopril 10 mg Route: PO; lp1 20:36 Follow up: Response: No adverse reaction lp1 19:41 Drug: Aspirin Chewable Tablet 162 mg Route: PO; lp1 20:36 Follow up: Response: No adverse reaction lp1 19:41 Drug: Lovenox 1 mg/kg Route: Sub-Q; Site: right lower abdomen; lp1 20:36 Follow up: Response: No adverse reaction lp1 19:41 Drug: Norvasc 5 mg Route: PO; lp1 20:35 Follow up: Response: No adverse reaction lp1 Disposition: 02/05/20 18:41 Hospitalization ordered by Phani Mcguire for Observation. Preliminary diagnosis are Other chest pain, Essential (primary) hypertension, Bradycardia, unspecified, Altered mental status, unspecified - resolved. - Bed requested for Telemetry/MedSurg (observation). - Status is Observation. lp1 - Condition is Fair. - Problem is new. - Symptoms have improved. Signatures: Dispatcher [employer] Saman Hill MD MD cha Smirch Kely, RN RN ss Astrid Erazo RN RN lp1 Xi Toledo, JOEY RN Светлана Yen, RN RN Hilda Segundo RN RN jl7 Corrections: (The following items were deleted from the chart) 17:26 17:14 Angio Aorta For Dissection+CT.RAD.BRZ ordered. EDNC EDNC 19:56 18:41 Hospitalization Ordered by Phani Mcguire MD for Observation. Preliminary cg diagnosis is Other chest pain; Essential (primary) hypertension; Bradycardia, unspecified; Altered mental status, unspecified - resolved. Bed requested for Telemetry/MedSurg (observation). Status is Observation. Condition is Fair. Problem is new. Symptoms have improved. [facility] 21:26 19:56 02/05/2020 18:41 Hospitalization Ordered by Phani Mcguire MD for Observation. lp1 Preliminary diagnosis is Other chest pain; Essential (primary) hypertension; Bradycardia, unspecified; Altered mental status, unspecified - resolved. Bed requested for Telemetry/MedSurg (observation). Status is Observation. Condition is Fair. Problem is new. Symptoms have improved. cg
[2020-02-08] MEDS: PROMETHAZINE INJ 25 MG/ML AMP IV PRN (21:22)
[2020-02-08] MEDS: MORPHINE 2 MG/ML SYR IV PRN (21:22)
[2020-02-08] MEDS: ATORVASTATIN 40 MG TAB PO SCH (21:23)
[2020-02-08] MEDS: ZOLPIDEM TARTRATE 10 MG TABLET PO PRN (21:23)
[2020-02-08] MEDS: MAGNES/ALUMIN/SIMET 30ML UCUP PO PRN (21:23)
[2020-02-08] MEDS: HYDRALAZINE HCL 20 MG/ML VIAL IV PRN (21:45)
--- NOTE | 2020-02-09 02:39 | DS ---
date of service 02/08/2020 Defensive Secondary Coach: Dr. Galicia with Cardiology. Procedures: Cardiac catheterization on 02/08/2020, with mild coronary artery disease found. No stents. Admitting Diagnoses: 1. Hypertensive emergency. 2. Chest pain. 3. Hypothyroidism. 4. Generalized anxiety disorder. Discharge Diagnoses: 1. Hypertensive emergency, improved blood pressure better. 2. Chest pain, acute coronary syndrome, ruled out status post cardiac catheterization. 3. Hypothyroidism, stable on Synthroid. 4. Generalized anxiety disorder, stable. 5. Intractable nausea, vomiting, resolved. 6. Chronic obstructive pulmonary disease, chronic bronchitis. No official diagnosis, will need outpatient PFTs. Hospital Course: Patient is a 59-year-old female with past medical history of hypothyroidism and generalized anxiety disorder, who comes into the hospital for hypertensive emergency with blood pressure in the 200s. The patient had labile blood pressure with treatment. Patient was started on multiple medications and was better controlled. She did have associated chest pain and elevation in cardiac troponin levels, 0.09, 0.10, and then dropped back down to 0.04. She was seen by Cardiology and was taken for cardiac stress test. CT scan of the head was negative. CT aortic dissection did not show any aortic dissection. She did have incidental finding of small left posterior diaphragmatic hernia and a small hiatal hernia. She also has moderate chronic obstructive pulmonary disease. She has no official diagnosis. Patient was taken for heart catheterization due to her symptoms that she did have intractable nausea and vomiting. She was found to have mild coronary artery disease. White blood cell count improved. She did not require any stents. She was then cleared for discharge from Dr. Galicia with cardiology standpoint. She no longer had any chest pain. Blood pressure has been stable. Patient was then discharged home in a stable condition. Activity: As tolerated. Diet: Heart healthy. Followup: Follow up with primary care physician in 2-3 days, follow up with bessemer converter blower, Dr. Galicia in 2 weeks. Return to ER for worsening condition. Medications: As per medication reconciliation list. Physical Examination: General: Awake, alert, oriented x3. No acute distress. CV: S1-S2. No murmurs. Respiratory: Moving air well bilaterally. No wheezing or stridor. Gastrointestinal: Abdomen is soft, nontender, nondistended. Positive bowel sounds. Extremities: No clubbing, cyanosis, or edema. Neurologic: Nonfocal. Total time spent discharging patient was 36 minutes. /BHANU Voice ID: [id number] Report ID: [id number] MTDD
[2020-02-09] MEDS: D5.45NS W/KCL 20MEQ 20 MEQ/1,000 ML BAG IV SCH ×2 (04:58→16:23)
[2020-02-09] MEDS: MORPHINE 2 MG/ML SYR IV PRN ×4 (06:21→20:12)
[2020-02-09] MEDS: PROMETHAZINE INJ 25 MG/ML AMP IV PRN (06:23)
[2020-02-09] MEDS: PANTOPRAZOLE 40MG TABLET PO SCH (07:30)
[2020-02-09] MEDS: carvediloL 6.25 MG TAB PO SCH ×2 (09:00→21:00)
[2020-02-09] MEDS: ENOXAPARIN 40 MG/0.4 ML SQ SCH (09:00)
[2020-02-09] MEDS: ASPIRIN EC 81 MG TAB PO SCH (09:00)
[2020-02-09] MEDS: ALPRAZOLAM 1 MG TABLET PO SCH ×2 (09:00→23:07)
[2020-02-09] MEDS: LEVOTHYROXINE SOD 0.125 MG TAB PO SCH (09:00)
[2020-02-09] MEDS: METHYLPHENIDATE HCL 40 MG PO SCH ×2 (09:00→20:12)
--- NOTE | 2020-02-09 10:43 | RAD REPORT ---
EXAM DESCRIPTION: RAD - Small Bowel Series - 02/09/2020 9:32 am CLINICAL HISTORY: nausea vomitting Abdominal pain COMPARISON: Abdomen Pelvis W Contrast dated 06/28/2018 FINDINGS: Zoology Technical Officer film shows a nonspecific bowel gas pattern. No obstruction or free air. No suspiciou s calcifications. After beginning to ingest barium the patient immediately vomited and could not continue the examinati on. No fluoroscopy was performed. Total images acquired: 3 IMPRESSION: Incomplete examination.
[2020-02-09] MEDS: ONDANSETRON 4 MG/2 ML VIAL IV PRN ×3 (12:03→20:12)
[2020-02-09] MEDS ORDERED: Ringers Lactate 1,000 ML IV ONE (12:40)
[2020-02-09] MEDS ORDERED: LIDOCAINE 1% MPF 5 ML VIAL ONE (12:44)
[2020-02-09] MEDS ORDERED: propofoL 200 MG/20 ML VIAL IV ONE (12:44)
[2020-02-09] MEDS ORDERED: EPHEDRINE SULF 50 MG/ML VIAL ONE (13:23)
[2020-02-09] MEDS ORDERED: ONDANSETRON 4 MG/2 ML VIAL ONE ×2 (13:37)
--- NOTE | 2020-02-09 14:46 | P.PN ---
Subjective Date of Service: 02/09/20 Chief Complaint: Chest pain, elevated blood pressure Subjective: New changes (Patient with intractable nausea and vomiting) Review of Systems General: Malaise Eyes: Unremarkable ENT: Unremarkable Respiratory: Unremarkable Cardiovascular: Unremarkable Gastrointestinal: Nausea, Vomiting, As per HPI Genitourinary: Unremarkable Musculoskeletal: Unremarkable Integumentary: Unremarkable Neurological: Unremarkable Lymphatics: Unremarkable Physical Examination - Vital Signs Temperature: 98.6 F Blood Pressure: 172/92 Pulse: 71 Respirations: 14 Pulse Ox (%): 97 - Physical Exam General: Alert, Other (Uncomfortable) HEENT: Atraumatic, Normocephalic Neck: Supple Respiratory: Clear to auscultation bilaterally, Normal air movement Cardiovascular: No edema Capillary refill: <2 Seconds Gastrointestinal: Hyperactive, Tenderness (Mild generalized) Musculoskeletal: No clubbing Integumentary: No erythema, No warmth Neurological: Normal speech Assessment & Plan Discharge Plan: Home Plan to discharge in: 24 Hours - Code Status/Comfort Care Code Status Assessed: Yes Physician Review Additional Text: Assessment Chest pain with Hypertensive emergency with elevated troponin levels and chest pain now status post cardiac catheterization with minimal CAD and no stent placement Intractable nausea vomiting Hypothyroidism Generalized anxiety disorder DVT prophylaxis Plan Chest pain with Hypertensive emergency with elevated troponin levels and chest pain now status post cardiac catheterization patient had cardiac catheterization and was found to have minimal coronary artery disease and did not require stent placement, patient will follow up with Cardiology on an outpatient basis in the next 2 weeks. Will continue to monitor patient on telemetry throughout the duration of her hospitalization. Will continue patient's home medications for hypertension. Continue with cardiology recommendations. Hypothyroidism. We will continue Synthroid. Generalized anxiety disorder. Continue home medications. Intractable nausea and vomiting. Gastroenterology has been consulted on this case. EGD performed today. Patient still with nausea vomiting, continue with Zofran, Phenergan, pantoprazole. Appreciate further input from gastroen terology. Patient was clear liquid diet at this time. Plan to discharge patient the next 24 hr. Continue IV fluids. Deep vein thrombosis prophylaxis with Lovenox. We will check lipid panel in a.m. Critical Care: No Time Spent Managing Pts Care (In Minutes): 55
--- NOTE | 2020-02-09 18:36 | CON ---
Date of Consultation: 02/09/2020 Reason For Consultation: Intractable nausea, vomiting, abdominal pain, reflux, and atypical chest pa in. History Of Present Illness: The patient is a 59-year-old white female with history of hypothyroidism , colitis, status post bowel resection, hernia repair. Patient presented to the hospital due to ches t pain, elevated blood pressure, found to have also intractable nausea and vomiting, unable to stop t his pain with nausea and vomiting. She also notes pain in the right and midepigastric area associate d with some atypical chest pain. Cardiac workup on this admission has been negative. The patient re ports occasional reflux disease. She is an ex-smoker. Past Medical History: Significant for hypothyroidism, colitis, hernia repair, bowel resection. Allergies: NKDA. Home Medications: Include Xanax, Synthroid, Ambien. Social History: She is . One daughter. No tobacco. She has rare alcohol, probably once a y ear, she reports. Family History: Father of coronary artery disease with congestive heart failure and myocardial infarction and also had a brain aneurysm. Mother is still alive with diabetes, hypertension, and con gestive heart failure. Review of Systems: Patient has intractable nausea, vomiting, midepigastric right upper quadrant pain, occasional reflux disease with atypical chest pain on this admission with negative cardiac workup. She denies any jatinder na, hematochezia, hematemesis, coffee-grounds emesis, hematuria, dysuria, polydipsia. She did have c hest pain. No shortness of breath. No seizure or syncope. No lower extremity muscle aches, joint a ches, backaches. No depression noted. She has a little anxiety. She is on Xanax and Ambien. Physical Examination: Vital Signs: She is 5 feet 6 inches, 119 pounds, BMI of 19.2 kg/sq m. She has temperature of 98.6 d egrees Fahrenheit, pulse 63, respirations 16, blood pressure 170/89, with O2 saturation anywhere from 93% to 96% O2 on room air. General: She is a thin female, lying in bed, in no acute distress. HEENT: Normocephalic, atraumatic. Anicteric. Pupils are equal, round, and reactive to light. Extr aocular movements intact. Oropharynx clear. Neck: Supple. No masses. Respirations: Clear to auscultation bilaterally. Cardiac: Regular rate and rhythm. Gastrointestinal: Positive bowel sounds. Soft, nondistended. Moderate tenderness in the right uppe r quadrant midepigastric area. No peritoneal or Adames sign. There is mild guarding. Extremities: No clubbing, cyanosis, or edema. 2+ pulses. Neurologic: Alert and oriented x3. Grossly nonfocal. 5/5 motor strength. Sensation intact to ligh t touch. Laboratory Data: Patient has a white count of 10.1 down from 12.3, hemoglobin of 13.7, hematocrit 41 .2, MCV of 92, platelet count 291. Polys of 68%, lymphocytes 22%, monocytes 10%. PT of 11.9, INR 1. 01. The patient has a sodium 141, potassium 4.0, chloride 109, bicarb 25, BUN 15, creatinine 0.9, gl ucose 114, calcium 8.7. On the , the patient had a phosphorus of 5.0, magnesium 2.0, total bilir ubin of 0.6, AST of 9, ALT of 15, alkaline phosphatase 75. CK-MB of 1.1-1.9. Troponin I of 0.10 to 0.04. Total protein 7.3, albumin 3.5, globulin 3.5, triglycerides of 143, cholesterol 197, LDL of 12 3, HDL 45, lipase 69, this is low. Urine; trace glucose, 1+ ketones, all else negative. Imaging Studies: She had a CT for dissection of her chest pain that was negative for aortic dissecti on. There was moderate chronic obstructive pulmonary disease noted with a cholecystectomy changes no ivy as well. Chest x-ray on the revealed COPD without other abnormality. CT of the head on the negative. Small bowel series done today revealed incomplete examination the patient immediately vomited, could not continue examination but no clear or obvious obstruction was noted. Impression: 1.Intractable nausea, vomiting, etiology unclear. Cardiac evaluation was negative. Other attempts to control her nausea and vomiting had been unsuccessful. Need to investigate with esophagogastroduo denoscopy. 2.Right upper quadrant midepigastric pain, could be associated with nausea and vomiting, such as gas tritis, peptic ulcer disease, or other. 3.Atypical chest pain. Has occasional reflux disease in light of the other findings of upper abdomi nal pain, nausea, vomiting. She may have reflux due to anatomical issues on the upper GI tract. Nee d to investigate with esophagogastroduodenoscopy. 4.History of hypothyroidism, colitis, bowel resection, hernia repair. Recommendations: 1.Proceed with EGD. 2.Continue p.r.n. pain medicines, antiemetics. 3.Continue IV fluids, IV antibiotics as needed. 4.PPI therapy in this patient. MICHAEL/BHANU Voice ID: [id number] Report ID: [id number]
[2020-02-09] MEDS: PANTOPRAZOLE 40 MG INJ IV SCH (20:11)
[2020-02-09] MEDS: ATORVASTATIN 40 MG TAB PO SCH (20:11)
[2020-02-09] MEDS: ZOLPIDEM TARTRATE 10 MG TABLET PO PRN (20:12)
[2020-02-09] MEDS: SODIUM CHLORIDE 0.9% 10ML INJ IV SCH (20:13)
--- NOTE | 2020-02-10 00:27 | PN ---
Date of Progress Note: 02/09/2020 Ms. Galo underwent a left heart catheterization yesterday by Dr. Galicia because of abnormal troponin. She had a right wrist approach. She was only found to have minimal coronary artery disease, not re quiring any intervention. Today, she is in sinus rhythm. Her vital signs are stable. She is afebri le. Her chest is clear. Her right wrist site appeared to be intact. She had no edema. She needs t o be discharged today whenever it is okay with admitting physician. I would still suggest a low-dose aspirin, statin and low-dose beta brodie because of her coronary artery disease. We will be happy to see her in the office in the near future. AVINASH/BHANU Voice ID: [id number] Report ID: [id number]
[2020-02-10] MEDS: D5.45NS W/KCL 20MEQ 20 MEQ/1,000 ML BAG IV SCH ×3 (03:13→19:40)
[2020-02-10 05:52] LABS: Absolute Lymphocytes (CBC) 3.2 K/uL (0.7-4.9); Basophils % 0.6 % (0-1.3); Hematocrit 39.7 % (36.0-45.0); Lymphocytes % 43.1 % (15.3-44.8); RBC Red Blood Cell Count 4.24 M/uL (3.86-4.86)
[2020-02-10 06:09] LABS: Potassium 3.8 mmol/L (3.5-5.1)
[2020-02-10] MEDS: ENOXAPARIN 40 MG/0.4 ML SQ SCH (07:59)
[2020-02-10] MEDS: ASPIRIN EC 81 MG TAB PO SCH (08:00)
[2020-02-10] MEDS: PANTOPRAZOLE 40 MG INJ IV SCH ×2 (08:00→19:38)
[2020-02-10] MEDS: LEVOTHYROXINE SOD 0.125 MG TAB PO SCH (08:00)
[2020-02-10] MEDS: carvediloL 6.25 MG TAB PO SCH ×2 (08:01→18:10)
[2020-02-10] MEDS: METHYLPHENIDATE HCL 40 MG PO SCH ×2 (08:01→19:39)
[2020-02-10] MEDS: SODIUM CHLORIDE 0.9% 10ML INJ IV SCH ×2 (08:01→19:39)
[2020-02-10] MEDS: ALPRAZOLAM 1 MG TABLET PO SCH ×3 (08:04→15:44)
[2020-02-10] MEDS ORDERED: NA CHLORIDE 0.9% 500 ML IV ONE (09:27)
[2020-02-10] MEDS: ONDANSETRON 4 MG/2 ML VIAL IV PRN ×3 (10:36→19:39)
[2020-02-10] MEDS: MORPHINE 2 MG/ML SYR IV PRN ×2 (13:02→19:39)
[2020-02-10] MEDS: PROMETHAZINE INJ 25 MG/ML AMP IV PRN (15:43)
--- NOTE | 2020-02-10 16:25 | RAD REPORT ---
EXAM DESCRIPTION: RAD - Abdomen 1 View (KUB) - 02/10/2020 4:13 pm CLINICAL HISTORY: nausea and vomiting COMPARISON: Abdomen 1 View (KUB) dated 01/10/2017; Angio Aorta For Dissection dated 02/05/2020; Small Bowel Series dated 02/09/2020; Chest Single View dated 02/05/2020 FINDINGS: Bowel gas pattern is non-specific. No obstruction, free air or pneumatosis. Trace amounts of contrast are present in the left-side of the colon. The patient initiated but could not complete a small-bowel series February 08. Patient only ingested a very small amount of contrast of 4 vomiting en sued. No significant bony findings cholecystectomy clips are present. IMPRESSION: No bowel obstruction, free air or other emergent finding. The trace amount of contrast the patient ingested at the start of an aborted small bowel series has r eached the sigmoid colon.
--- NOTE | 2020-02-10 17:17 | P.PN ---
Subjective Date of Service: 02/10/20 Chief Complaint: Chest pain, elevated blood pressure Subjective: No new changes (Patient continues with nausea and vomiting.) Review of Systems General: Unremarkable Eyes: Unremarkable ENT: Unremarkable Respiratory: Unremarkable Cardiovascular: Unremarkable Gastrointestinal: Nausea, Vomiting Genitourinary: Unremarkable Musculoskeletal: Unremarkable Integumentary: Unremarkable Neurological: Unremarkable Lymphatics: Unremarkable Physical Examination - Vital Signs Temperature: 97.2 F Blood Pressure: 106/64 Pulse: 64 Respirations: 19 Pulse Ox (%): 96 - Physical Exam General: Alert, In no apparent distress, Oriented x3 HEENT: Atraumatic, Normocephalic Neck: Supple Respiratory: Clear to auscultation bilaterally, Normal air movement Capillary refill: <2 Seconds Gastrointestinal: Hypoactive Musculoskeletal: No clubbing, No swelling Integumentary: No significant lesion Neurological: Normal speech Assessment & Plan Discharge Plan: Home Plan to discharge in: 24 Hours - Code Status/Comfort Care Code Status Assessed: No Physician Review: Patient Assessed, Agree with Above Assessment and Plan Physician Review Additional Text: Assessment Chest pain with Hypertensive emergency with elevated troponin levels and chest pain now status post cardiac catheterization with minimal CAD and no stent placement Intractable nausea vomiting Hypothyroidism Generalized anxiety disorder DVT prophylaxis Plan Chest pain with Hypertensive emergency with elevated troponin levels and chest pain now status post cardiac catheterization patient had cardiac catheterization and was found to have minimal coronary artery disease and did not require stent placement, patient will follow up with Cardiology on an outpatient basis in the next 2 weeks. Will continue to monitor patient on telemetry throughout the duration of her hospitalization. Will continue patient's home medications for hypertension. Continue with cardiology recommendations. Hypothyroidism. We will continue Synthroid. Generalized anxiety disorder. Continue home medications. Intractable nausea and vomiting. Gastroenterology has been consulted on this case. EGD shows only a small hernia and gastritis. Patient tolerated her breakfast with full liquids will but began having nausea vomiting after the lunch. Patient continues with epigastric pain, nausea, vomiting. KUB shows no bowel obstruction and contrast that was previously ingested for small bowel series has reached the sigmoid colon. Patient reports that she is having normal bowel movements. Will continue with full liquid diet and reassess tomorrow to determine if patient can be discharged at that time. Deep vein thrombosis prophylaxis with Lovenox. Critical Care: No Time Spent Managing Pts Care (In Minutes): 55
--- NOTE | 2020-02-10 17:58 | PN ---
Ms. Galo had a catheterization about [address] Galicia showing minimal coronary artery disea se. I saw her yesterday post catheterization. Her right wrist site of insertion was intact. She ye sterday was complaining of intractable nausea and vomiting and there was a plan for endoscopy for [facility] love. No chest pain reported. No shortness of breath reported. She remains in sinus rhythm. She rem ains afebrile. Her catheterization site still appears normal. She has minimal coronary artery disea se. She is cleared for endoscopy. We will see what that shows. From a cardiac standpoint, we will sign off her case. I would like to see her in the office in the next 2 weeks. AVINASH/BHANU Voice ID: [id number] Report ID: [id number]
[2020-02-10] MEDS: ATORVASTATIN 40 MG TAB PO SCH (19:39)
[2020-02-10] MEDS: ZOLPIDEM TARTRATE 10 MG TABLET PO PRN (19:39)
[2020-02-10] MEDS ORDERED: ALPRAZOLAM 1 MG TABLET PO ONE (20:09)
[2020-02-11 05:49] LABS: Potassium 3.7 mmol/L (3.5-5.1)
[2020-02-11] MEDS: LEVOTHYROXINE SOD 0.125 MG TAB PO SCH (08:58)
[2020-02-11] MEDS: PANTOPRAZOLE 40 MG INJ IV SCH ×2 (08:58→21:11)
[2020-02-11] MEDS: ALPRAZOLAM 1 MG TABLET PO SCH (08:58)
[2020-02-11] MEDS: ASPIRIN EC 81 MG TAB PO SCH (08:59)
[2020-02-11] MEDS: carvediloL 6.25 MG TAB PO SCH (08:59)
[2020-02-11] MEDS: METHYLPHENIDATE HCL 40 MG PO SCH ×2 (09:00→21:00)
[2020-02-11] MEDS: ENOXAPARIN 40 MG/0.4 ML SQ SCH (09:00)
[2020-02-11] MEDS ORDERED: POTASSIUM CL SA 10 MEQ TAB PO ONE (09:00)
[2020-02-11] MEDS: SODIUM CHLORIDE 0.9% 10ML INJ IV SCH ×2 (09:00→21:00)
[2020-02-11] MEDS: D5.45NS W/KCL 20MEQ 20 MEQ/1,000 ML BAG IV SCH ×2 (09:01→19:00)
[2020-02-11] MEDS ORDERED: NA CHLORIDE 0.9% 500 ML IV ONE (09:34)
--- NOTE | 2020-02-11 13:41 | P.PN ---
Subjective Date of Service: 02/11/20 Chief Complaint: Chest pain, elevated blood pressure Subjective: No new changes Patient still reports nausea vomiting <José Miguel Richter - Last Filed: 02/11/20 13:37> Date of Service: 02/11/20 <Evan Boo - Last Filed: 02/11/20 17:58> Review of Systems General: Unremarkable Eyes: Unremarkable ENT: Unremarkable Respiratory: Unremarkable Cardiovascular: Unremarkable Gastrointestinal: Nausea, Vomiting, Abdominal Pain Genitourinary: Unremarkable Integumentary: Unremarkable Neurological: Unremarkable Lymphatics: Unremarkable <José Miguel Richter - Last Filed: 02/11/20 13:37> Physical Examination - Vital Signs Temperature: 97.1 F Blood Pressure: 88/52 Pulse: 59 Respirations: 18 Pulse Ox (%): 94 - Physical Exam General: Alert, In no apparent distress, Oriented x3 HEENT: Atraumatic, Normocephalic Neck: Supple Respiratory: Clear to auscultation bilaterally, Normal air movement Cardiovascular: Normal pulses, Normal S1 S2 Gastrointestinal: Normal bowel sounds, Soft and benign Musculoskeletal: No clubbing, No erythema, No warmth Integumentary: No erythema, No warmth Neurological: Normal speech <José Miguel Richter Last Filed: 02/11/20 13:37> Assessment & Plan Discharge Plan: Home Plan to discharge in: 24 Hours Physician Review: Patient Assessed, Agree with Above Assessment and Plan Physician Review Additional Text: Assessment Chest pain with Hypertensive emergency with elevated troponin levels and chest pain now status post cardiac catheterization with minimal CAD and no stent placement Intractable nausea vomiting Hypothyroidism Generalized anxiety disorder DVT prophylaxis Plan Chest pain with Hypertensive emergency with elevated troponin levels and chest pain now status post cardiac catheterization patient had cardiac catheterization and was found to have minimal coronary artery disease and did not require stent placement, patient will follow up with Cardiology on an outpatient basis in the next 2 weeks. Will continue to monitor patient on telemetry throughout the duration of her hospitalization. Patient's blood pressure has been very labile this morning patient's blood pressure is low. Carvedilol adjusted the vital signs are to be obtained. Will continue to monitor blood pressure closely. Patient does not appear septic at this time. Hypothyroidism. We will continue Synthroid. Will obtain TSH and free T4 levels in the morning. Generalized anxiety disorder. Continue home medications. Intractable nausea and vomiting. Gastroenterology has been consulted on this case. EGD shows only a small hernia and gastritis. Patient had KUB yesterday that showed no obstruction and that contrast from her previously failed small bowel series has made to the distal colon. Patient reports that she is only able to take a small amount of clear liquids this morning before becoming nauseous and having vomiting. Will discuss this case further with gastroenterology. Will obtain labs in the morning. Patient will likely be able to be discharged in the next 24-48 hr. Deep vein thrombosis prophylaxis with Lovenox. Critical Care: No Time Spent Managing Pts Care (In Minutes): 55 <José Miguel Rcihter - Last Filed: 02/11/20 13:37> Physician Review Additional Text: Case discussed at length with nurse practitioner. Case also discuss with GI. Will order CT scan of abdomen to further evaluate. Phenergan discontinued. Reglan and Carafate added. Await findings. Will discuss further with GI. <Evan Boo - Last Filed: 02/11/20 17:58>
[2020-02-11] MEDS: MORPHINE 2 MG/ML SYR IV PRN (14:00)
--- NOTE | 2020-02-11 15:53 | PN ---
Date of Progress Note: 02/11/2020 Ms. Galo had come in for hypertensive emergency, chest pain. Catheterization that was done showed mi nimal coronary artery disease. She was going to go home yesterday, but she was still having intracta ble nausea and vomiting and blood pressure of 210/90. Endoscopy showed hernia and gastritis. She is improved today and was able to tolerate some clear liquid. Her symptoms are obviously related to ga stritis and possible anxiety and may be related to her blood pressure as well. Her coronary artery d isease is minimal. I think she needs to be on a statin. She is on Lipitor. She needs to continue a spirin. I think we need to increase her Coreg to 25 b.i.d. and if her symptoms persist or her blood pressure remains high, we should put her on lisinopril with hydrochlorothiazide and she should be on a proton pump inhibitor. She can go home whenever it is okay with Dr. Boo. I will sign off her c ase for now. I will see her in the office in the near future. AVINASH/BHANU Voice ID: [id number] Report ID: [id number]
--- NOTE | 2020-02-11 16:49 | RAD REPORT ---
EXAM DESCRIPTION: CT - Abdomen Pelvis W Contrast - 02/11/2020 4:37 pm CLINICAL HISTORY: Abdominal pain, nausea and vomiting COMPARISON: Angio Aorta For Dissection dated 02/05/2020; Abdomen Pelvis W Contrast dated 8 TECHNIQUE: Biphasic, helical CT imaging of the abdomen and pelvis was performed following 100 ml non -ionic IV contrast. Oral contrast was given. All CT scans are performed using dose optimization technique as appropriate and may include automated exposure control or mA/KV adjustment according to patient size. FINDINGS: No suspicious findings in the lung bases. The liver, spleen, and pancreas show no suspicious findings. Gallbladder and biliary tree are also wi thout suspicious finding. Symmetric renal function is seen with no hydronephrosis or suspicious renal mass. No pyelonephritis o r acute parenchymal process. No bladder abnormalities. No adrenal abnormalities. Uterus and ovaries s how no suspicious findings. No dilated bowel loops or bowel wall thickening. Moderate sigmoid diverticulosis present without dive rticulitis. Mild mucosal level inflammatory bowel changes can be occult to CT imaging. No free air, f ree fluid or inflammatory stranding. No mass, bulky lymphadenopathy or omental thickening. A small f at only left inguinal hernia is present. Air in the left abdominal subcutaneous fat presumed to be fr om medication injection. Patient has sand [place] or bandaging in place near the right groin. Patient matt mars had a vascular access procedure. No hematoma or suspicious finding in the soft tissues. Bony degenerative change seen. No acute bone finding. IMPRESSION: CT abdomen and pelvis imaging shows no acute or suspicious finding. Nonacute findings de tailed in the body of cord.
[2020-02-11] MEDS: SUCRALFATE 1 GM TABLET PO SCH ×2 (17:24→21:12)
--- NOTE | 2020-02-11 17:51 | P.PN ---
Subjective Date of Service: 02/11/20 Chief Complaint: Nausea / vomiting Subjective: No new changes (Still with N/V despite change of Protonix 40 mg po bid to IV q 12. EGD revealed moderate to severe gastritis with deep gastric ulcers.) Review of Systems 10-point ROS is otherwise unremarkable Gastrointestinal: Nausea, Vomiting Physical Examination - Vital Signs Temperature: 97.1 F Blood Pressure: 88/52 Pulse: 59 Respirations: 18 Pulse Ox (%): 94 Assessment And Plan - Current Problems (Diagnosis) (1) Intractable nausea and vomiting Current Visit: Yes Status: Acute (2) Chest pain Current Visit: Yes Status: Acute (3) Dehydration Onset Date: 08/24/14 Current Visit: No Status: Acute (4) Right upper quadrant pain Onset Date: 08/24/14 Current Visit: No Status: Acute (5) Gastritis Current Visit: Yes Status: Acute (6) Gastric ulcer Current Visit: Yes Status: Acute - Plan REC: 1) start Reglan 10 mg IV q 6 hours for 3 days 2) continue Protonix 40 mg IV q12. Can increase to IV drip if needed 3) start Carafate elixir qac/qhs Physician Review: Patient Assessed, Agree with Above Assessment and Plan Physician Review Additional Text: Assessment Chest pain with Hypertensive emergency with elevated troponin levels and chest pain now status post cardiac catheterization with minimal CAD and no stent placement Intractable nausea vomiting Hypothyroidism Generalized anxiety disorder DVT prophylaxis Plan Chest pain with Hypertensive emergency with elevated troponin levels and chest pain now status post cardiac catheterization patient had cardiac catheterization and was found to have minimal coronary artery disease and did not require stent placement, patient will follow up with Cardiology on an outpatient basis in the next 2 weeks. Will continue to monitor patient on telemetry throughout the duration of her hospitalization. Patient's blood pressure has been very labile this morning patient's blood pressure is low. Carvedilol adjusted the vital signs are to be obtained. Will continue to monitor blood pressure closely. Patient does not appear septic at this time. Hypothyroidism. We will continue Synthroid. Will obtain TSH and free T4 levels in the morning. Generalized anxiety disorder. Continue home medications. Intractable nausea and vomiting. Gastroenterology has been consulted on this case. EGD shows only a small hernia and gastritis. Patient had KUB yesterday that showed no obstruction and that contrast from her previously failed small bowel series has made to the distal colon. Patient reports that she is only able to take a small amount of clear liquids this morning before becoming nauseous and having vomiting. Will discuss this case further with gastroenterology. Will obtain labs in the morning. Patient will likely be able to be discharged in the next 24-48 hr. Deep vein thrombosis prophylaxis with Lovenox.
[2020-02-11] MEDS: ONDANSETRON 4 MG/2 ML VIAL IV PRN (21:11)
[2020-02-11] MEDS: ATORVASTATIN 40 MG TAB PO SCH (21:12)
[2020-02-11] MEDS: ZOLPIDEM TARTRATE 10 MG TABLET PO PRN (22:15)
[2020-02-12] MEDS ORDERED: ALPRAZOLAM 1 MG TABLET PO ONE ×2 (00:37→20:19)
[2020-02-12] MEDS: D5.45NS W/KCL 20MEQ 20 MEQ/1,000 ML BAG IV SCH ×4 (00:52→22:50)
[2020-02-12] MEDS: ONDANSETRON 4 MG/2 ML VIAL IV PRN ×2 (01:08→17:41)
[2020-02-12] MEDS: METOCLOPRAMIDE 10 MG/2mL INJ IV PRN ×2 (02:45→20:49)
[2020-02-12] MEDS: MAGNES/ALUMIN/SIMET 30ML UCUP PO PRN (02:49)
[2020-02-12 06:17] LABS: Absolute Lymphocytes (CBC) 1.9 K/uL (0.7-4.9); Basophils % 0.7 % (0-1.3); Hematocrit 40.9 % (36.0-45.0); Lymphocytes % 20.5 % (15.3-44.8); MPV 9.6 fL (7.6-11.3); RBC Red Blood Cell Count 4.38 M/uL (3.86-4.86)
[2020-02-12 06:56] LABS: Albumin 3.4 g/dL (3.4-5.0); Bilirubin Total 0.7 mg/dL (0.2-1.0); Potassium 3.9 mmol/L (3.5-5.1); Protein, Total 6.5 g/dL (6.4-8.2); Thyroid Stimulating Hormone 0.009 uIU/mL (0.360-3.740)
[2020-02-12] MEDS: ALPRAZOLAM 1 MG TABLET PO SCH (08:33)
[2020-02-12] MEDS: ASPIRIN EC 81 MG TAB PO SCH (08:34)
[2020-02-12] MEDS: LEVOTHYROXINE SOD 0.125 MG TAB PO SCH (08:34)
[2020-02-12] MEDS: SUCRALFATE 1 GM TABLET PO SCH ×4 (08:34→20:42)
[2020-02-12] MEDS: PANTOPRAZOLE 40 MG INJ IV SCH ×2 (08:35→20:42)
[2020-02-12] MEDS: SODIUM CHLORIDE 0.9% 10ML INJ IV SCH ×2 (08:35→22:52)
[2020-02-12] MEDS: ENOXAPARIN 40 MG/0.4 ML SQ SCH (08:35)
[2020-02-12] MEDS: METHYLPHENIDATE HCL 40 MG PO SCH (08:35)
--- NOTE | 2020-02-12 13:29 | P.PN ---
Subjective Date of Service: 02/12/20 Chief Complaint: Nausea / vomiting Subjective: No new changes Patient still reports nausea vomiting Review of Systems General: Malaise Eyes: Unremarkable ENT: Unremarkable Respiratory: Unremarkable Cardiovascular: Unremarkable Gastrointestinal: Nausea, Vomiting Genitourinary: Unremarkable Musculoskeletal: Unremarkable Neurological: Unremarkable Lymphatics: Unremarkable Physical Examination - Vital Signs Temperature: 98.9 F Blood Pressure: 171/90 Pulse: 76 Respirations: 16 Pulse Ox (%): 94 - Physical Exam General: Alert, In no apparent distress, Oriented x3 HEENT: Atraumatic, Normocephalic Neck: Supple Respiratory: Clear to auscultation bilaterally, Normal air movement Cardiovascular: Normal pulses Capillary refill: <2 Seconds Gastrointestinal: Normal bowel sounds, Soft and benign, Non-distended Musculoskeletal: No clubbing Integumentary: No erythema, No warmth Neurological: Normal speech, Normal tone Assessment & Plan Discharge Plan: Home Plan to discharge in: 24 Hours - Code Status/Comfort Care Code Status Assessed: Yes Physician Review: Patient Assessed, Agree with Above Assessment and Plan Physician Review Additional Text: Assessment Chest pain with Hypertensive emergency with elevated troponin levels and chest pain now status post cardiac catheterization with minimal CAD and no stent placement Intractable nausea vomiting Hypothyroidism Generalized anxiety disorder DVT prophylaxis Plan Chest pain with Hypertensive emergency with elevated troponin levels and chest pain now status post cardiac catheterization patient had cardiac catheterization and was found to have minimal coronary artery disease and did not require stent placement, patient will follow up with Cardiology on an outpatient basis in the next 2 weeks. Will continue to monitor patient on telemetry throughout the duration of her hospitalization. Patient's blood pressure has been very labile this morning patient's blood pressure is low. Carvedilol adjusted the vital signs are to be obtained. Will continue to monitor blood pressure closely. Patient does not appear septic at this time. Hypothyroidism. Patient with hyperthyroidism per labs. Will decrease dose of Synthroid to 100 mcg. Generalized anxiety disorder. Continue home medications. Intractable nausea and vomiting. Gastroenterology has been consulted on this case. Patient has not had EEG, KUB, and CT scan with contrast of the abdomen and pelvis which showed no acute findings or obstruction. Patient continues to have nausea and vomiting. Reglan and Carafate started per gastroenterology recommendations. Patient appears to be resting well today. Will attempt to advance diet to GI soft for dinner. If patient tolerates this she can likely be discharged tomorrow. Discontinued Coreg as nausea vomiting can be a side effect this medication. Start patient on Norvasc. Will continue to monitor blood pressure throughout this hospitalization. Deep vein thrombosis prophylaxis with Lovenox. Critical Care: No Time Spent Managing Pts Care (In Minutes): 55
--- NOTE | 2020-02-12 16:05 | P.PN ---
Subjective Date of Service: 02/12/20 Chief Complaint: Nausea / vomiting Subjective: New changes (Feels better and is without N/V today though she has yet to eat 1st meal; she is about to start eating now. Before she had N/V even at rest without po intake.) Review of Systems 10-point ROS is otherwise unremarkable General: Weakness (Improved.) Gastrointestinal: Nausea (Improved.), Vomiting (Improved.) Physical Examination - Vital Signs Temperature: 98.9 F Blood Pressure: 171/90 Pulse: 76 Respirations: 16 Pulse Ox (%): 94 - Physical Exam General: Alert, In no apparent distress, Oriented x3, Cooperative HEENT: Atraumatic, Normocephalic, PERRLA, EOMI Neck: Supple Respiratory: Diminished Cardiovascular: Normal pulses Gastrointestinal: Soft and benign, No tenderness, No rebound, No guarding Neurological: Normal speech, Normal strength at 5/5 x4 extr Assessment And Plan - Current Problems (Diagnosis) (1) Intractable nausea and vomiting Current Visit: Yes Status: Acute (2) Chest pain Current Visit: Yes Status: Acute (3) Dehydration Onset Date: 08/24/14 Current Visit: No Status: Acute (4) Right upper quadrant pain Onset Date: 08/24/14 Current Visit: No Status: Acute (5) Gastritis Current Visit: Yes Status: Acute (6) Gastric ulcer Current Visit: Yes Status: Acute - Plan REC: 1) Reglan 10 mg IV q 6 hours for 3 days 2) continue Protonix 40 mg IV q12. Can increase to IV drip if needed 3) Carafate elixir qa/q Physician Review: Patient Assessed, Agree with Above Assessment and Plan Physician Review Additional Text: Assessment Chest pain with Hypertensive emergency with elevated troponin levels and chest pain now status post cardiac catheterization with minimal CAD and no stent placement Intractable nausea vomiting Hypothyroidism Generalized anxiety disorder DVT prophylaxis Plan Chest pain with Hypertensive emergency with elevated troponin levels and chest pain now status post cardiac catheterization patient had cardiac catheteriza tion and was found to have minimal coronary artery disease and did not require stent placement, patient will follow up with Cardiology on an outpatient basis in the next 2 weeks. Will continue to monitor patient on telemetry throughout the duration of her hospitalization. Patient's blood pressure has been very labile this morning patient's blood pressure is low. Carvedilol adjusted the vital signs are to be obtained. Will continue to monitor blood pressure closely. Patient does not appear septic at this time. Hypothyroidism. Patient with hyperthyroidism per labs. Will decrease dose of Synthroid to 100 mcg. Generalized anxiety disorder. Continue home medications. Intractable nausea and vomiting. Gastroenterology has been consulted on this case. Patient has not had EEG, KUB, and CT scan with contrast of the abdomen and pelvis which showed no acute findings or obstruction. Patient continues to have nausea and vomiting. Reglan and Carafate started per gastroenterology recommendations. Patient appears to be resting well today. Will attempt to advance diet to GI soft for dinner. If patient tolerates this she can likely be discharged tomorrow. Discontinued Coreg as nausea vomiting can be a side effect this medication. Start patient on Norvasc. Will continue to monitor blood pressure throughout this hospitalization. Deep vein thrombosis prophylaxis with Lovenox.
[2020-02-12] MEDS: ENSURE ENLIVE 237 ML CAN PO SCH (19:48)
[2020-02-12] MEDS: ZOLPIDEM TARTRATE 10 MG TABLET PO PRN (20:42)
[2020-02-12] MEDS: ATORVASTATIN 40 MG TAB PO SCH (20:42)
[2020-02-13] MEDS ORDERED: LEVOTHYROXINE SOD 0.1 MG TAB PO SCH (06:30)
[2020-02-13] MEDS: SODIUM CHLORIDE 0.9% 10ML INJ IV SCH (09:00)
[2020-02-13] MEDS ORDERED: AMLODIPINE 2.5 MG TAB PO SCH (09:00)
[2020-02-13] MEDS: PANTOPRAZOLE 40 MG INJ IV SCH (09:00)
[2020-02-13] MEDS ORDERED: AMLODIPINE 5 MG TAB PO SCH (09:00)
[2020-02-13] MEDS: ENSURE ENLIVE 237 ML CAN PO SCH (09:00)
[2020-02-13] MEDS: ENOXAPARIN 40 MG/0.4 ML SQ SCH (09:00)
[2020-02-13] MEDS: ASPIRIN EC 81 MG TAB PO SCH (10:12)
[2020-02-13] MEDS: SUCRALFATE 1 GM TABLET PO SCH ×2 (10:12→13:09)
[2020-02-13] MEDS ORDERED: ALPRAZOLAM 1 MG TABLET PO SCH (11:00)
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
[2020-02-13 12:56] VITALS: O2SAT 96
[2020-02-13 14:35] VITALS: TEMP 98.2
[2020-02-13 15:50] VITALS: BP 151/75
[2020-02-13] MEDS ORDERED: PANTOPRAZOLE 40MG TABLET PO SCH (16:30)
== END 2020-02-13 14:30 | disposition home or self-care (01) | DRG 281 ==
LOC: ER 16:53 → ERHOLD 19:34 → 2ND 21:11
PROVIDERS: ADMIT Family Medicine; ATTEND Family Medicine
PROC: 4A023N7 Measurement of Cardiac Sampling and Pressure, Left Heart, Percutaneous Approach (ICD-10-PCS; principal; 2020-02-08)
PROC: B2111ZZ Fluoroscopy of Multiple Coronary Arteries using Low Osmolar Contrast (ICD-10-PCS; 2020-02-08)
PROC: 0DB68ZX Excision of Stomach, Via Natural or Artificial Opening Endoscopic, Diagnostic (ICD-10-PCS; 2020-02-13)
DX: I21.4 Non-ST elevation (NSTEMI) myocardial infarction (principal); I16.1 Hypertensive emergency; K44.9 Diaphragmatic hernia without obstruction or gangrene; K29.00 Acute gastritis without bleeding; E03.9 Hypothyroidism, unspecified; I25.10 Atherosclerotic heart disease of native coronary artery without angina pectoris; I16.0 Hypertensive urgency; F41.1 Generalized anxiety disorder; J44.9 Chronic obstructive pulmonary disease, unspecified; K21.9 Gastro-esophageal reflux disease without esophagitis; E86.0 Dehydration; I10 Essential (primary) hypertension; Z79.01 Long term (current) use of anticoagulants; Z79.890 Hormone replacement therapy; Z79.899 Other long term (current) drug therapy; Z87.891 Personal history of nicotine dependence; Z90.49 Acquired absence of other specified parts of digestive tract; Z79.82 Long term (current) use of aspirin
CPT/HCPCS: 36415; 70450; 71045; 71275; 74018; 74175; 74177; 74250; 80048; 80053; 80061; 80076; 81003; 82550; 82553; 83690; 83735; 83880; 84100; 84439; 84443; 84484; 85025; 85610; 88305; 88312; 93005; 93458; 94760; 96372; 99285; C1893; C9113; J0360; J1644; J1650; J2250; J2270; J2405; J2550; J2704; J2765; J3010; J7030; J7040; J7120; Q9967

== ENCOUNTER 2023-10-24 04:17 | Inpatient (IN) | payer BC, SELFPAY ==
[2023-10-24] MEDS ORDERED: ONDANSETRON 4 MG/2 ML VIAL ONE (04:25)
[2023-10-24] MEDS ORDERED: MORPHINE 4 MG/ML SYR ONE (04:26)
[2023-10-24 05:01] LABS: Absolute Lymphocytes (CBC) 0.8 K/uL (0.7-4.9); Hematocrit 41.6 % (36.0-45.0); Lymphocytes % 11.9 % (15.3-44.8); MCV 90.9 fL (80-100); MPV 8.6 fL (7.6-11.3); Platelets 267 thou/uL (152-406); RBC Red Blood Cell Count 4.58 M/uL (3.86-4.86)
[2023-10-24 05:31] LABS: Blood Morphology Comment NOT SEEN (NOT SEEN); Platelet Estimate ADEQ
[2023-10-24 05:32] LABS: Albumin 3.2 g/dL (3.4-5.0); Bilirubin Total 0.5 mg/dL (0.2-1.0); C-Reactive Protein 7.83 mg/L (<3.00); Protein, Total 6.4 g/dL (6.4-8.2); Thyroid Stimulating Hormone 0.707 uIU/mL (0.358-3.740)
[2023-10-24 05:33] LABS: Potassium 4.3 mEq/L (3.5-5.1)
[2023-10-24] MEDS ORDERED: FAMOTIDINE 20 MG/2 ML VIAL IV ONE (05:41)
[2023-10-24] MEDS ORDERED: CEFTRIAXONE 1000 MG/VIAL ONE ×2 (06:49→10:42)
[2023-10-24] MEDS ORDERED: AZITHROMYCIN 500 MG INJ IVPB ONE ×2 (06:49→10:43)
[2023-10-24] MEDS ORDERED: NA CHLORIDE 0.9% 250 ML ONE ×2 (06:50→10:43)
[2023-10-24] MEDS ORDERED: WATER FOR INJ,STERILE 10 ML ONE ×2 (06:50→07:16)
--- NOTE | 2023-10-24 06:55 | ER ---
Nurse's Notes [facility] Name: Sirisha Iraj Age: 62 yrs Sex: Female : 1960 Arrival Date: 10/24/2023 Time: 04:17 Bed 7 Private MD: Diagnosis: Other pneumonia, unspecified organism;Right lower lung pneumonia, acute bacterial pneumonia, acute body aches, agitation requiring sedation Presentation: 10/24 04:15 Chief complaint: Patient states: EMS states "the patient if feeling cold and her body as9 hurts" . patient also say that she has a whole body pain and abdominal pain that is 9/10 pain score, started since picnic today. Coronavirus screen: At this time, the client does not indicate any symptoms associated with coronavirus-19. Ebola Screen: No symptoms or risks identified at this time. Initial Sepsis Screen: Does the patient meet any 2 criteria? RR > 20 per min. HR > 90 bpm. Does the patient have a suspected source of infection? No. Patient's initial sepsis screen is negative. 04:15 Method Of Arrival: EMS: [facility] as9 04:15 Risk Assessment: Do you want to hurt yourself or someone else? Patient reports no as9 desire to harm self or others. Onset of symptoms was October 24, 2023. 04:15 Acuity: MING 3 as9 Triage Assessment: 04:15 General: Appears uncomfortable, Behavior is agitated, anxious. Pain: Complains of pain as9 in abdomen, whole body Pain currently is 9 out of 10 on a pain scale. Quality of pain is described as aching. EENT: No signs and/or symptoms were reported regarding the EENT system. Neuro: Level of Consciousness is awake, alert, obeys commands, Oriented to person, place, time, situation. Cardiovascular: Capillary refill < 3 seconds Patient's skin is warm and dry. Respiratory: Airway is patent Respiratory effort is even, Respiratory pattern is tachypnea. GI: Abdomen is round non-distended, Reports lower abdominal pain. : No signs and/or symptoms were reported regarding the genitourinary system. Derm: No signs and/or symptoms reported regarding the dermatologic system. Musculoskeletal: Circulation, motion, and sensation intact. Range of motion: intact in all extremities. Historical: - Allergies: 04:48 No Known Allergies; as9 - PMHx: 04:48 Anxiety; Hypothyroidism; as9 - PSHx: 04:48 Unable to Obtain; as9 - Immunization history:: Client reports receiving the 2nd dose of the Covid vaccine, Flu vaccine is not up to date. - Social history:: Smoking status: Patient denies any tobacco usage or history of. Patient uses alcohol, only on a social basis. Patient/guardian denies using street drugs. - Family history:: not pertinent. Screenin:00 [facility] ED Fall Risk Assessment (Adult) History of falling in the last 3 months, as9 including since admission No falls in past 3 months (0 pts) Confusion or Disorientation No (0 pts) Intoxicated or Sedated No (0 pts) Impaired Gait No (0 pts) Mobility Assist Device Used No (0 pt) Altered Elimination No (0 pt) Score/Fall Risk Level 0 - 2 = Low Risk. Abuse screen: Denies threats or abuse. Nutritional screening: No deficits noted. Tuberculosis screening: No symptoms or risk factors identified. Assessment: 05:14 Reassessment: see triage assessments notes. as9 07:15 General: Appears uncomfortable, unkempt, Behavior is anxious, drowsy, fussy, ld1 uncooperative, Reports abdominal pain, difficulty urinating. Pain: Complains of pain in abdomen Pain does not radiate. Pain currently is 10 out of 10 on a pain scale. Quality of pain is described as pressure, Pain began 1 day ago. Is continuous. Neuro: Level of Consciousness is confused, Oriented to none. Cardiovascular: Patient's skin is warm and dry. Rhythm is sinus rhythm. Respiratory: Airway is patent Respiratory effort is even, labored. GI: Abdomen is round distended, Reports lower abdominal pain, upper abdominal pain. : Reports inability to void, urgency. 07:20 Reassessment: Received report from medication specialist RN. Pt screaming "I have to go pee now." ld1 Pt attempting to crawl out of bed, drowsy, unable to open eyes. Notified ERP. See MAR for orders. 07:36 Reassessment: Notified ERP and RT of RR. Requested to come to ER room 7 now. ld1 08:03 Reassessment: Holley Galo - Mother in Law - [phone]. ld1 08:21 Reassessment: RT and Hospitalist aware of VS. Hospitalist requested rectal temp. ld1 notified of 101.4 temp and high respiratory rate. Awaiting new orders. Vital Signs: 04:15 BP 133 / 85; Pulse 117; Resp 33; Temp 99; Pulse Ox 88% on R/A; Weight 63.5 kg; Height 5 as9 ft. 5 in. ; 04:20 BP 133 / 85; Pulse 118; Resp 27; Pulse Ox 91% on 3 lpm NC; as9 04:45 BP 114 / 73; Pulse 108; Resp 38; Pulse Ox 95% on 3 lpm NC; as9 05:00 BP 122 / 71; Pulse 104; Resp 34; Pulse Ox 96% on 3 lpm NC; as9 05:15 BP 131 / 76; Pulse 96; Resp 34; Pulse Ox 96% on 3 lpm NC; as9 07:34 BP 113 / 76; Pulse 100; Resp 39; Pulse Ox 92% on 5 lpm NC; ld1 08:20 Temp 101.4(R); ld1 04:15 Body Mass Index 23.30 (63.50 kg, 165.1 cm) as9 Elizabeth Coma Score: 06:38 Eye Response: spontaneous(4). Motor Response: obeys commands(6). Verbal Response: sp4 oriented(5). Total: 15. ED Course: 04:22 Patient arrived in ED. ty 04:27 Vinny Leahy MD is Attending Physician. sp4 04:30 Alberto Fields, JOEY is Primary Nurse. rv 04:30 Radiology exam delayed due to lab results not completed at this time. (BUN/Creatinine) eh4 IV insertion attempt and/or patient not having appropriate IV at this time. 04:30 Maintain EMS IV. Dressing intact. Good blood return noted. Site clean \\T\\ dry. Gauge \\T\\ as 9 site: g22 left forearm. 04:48 Triage completed. as9 05:00 Patient has correct armband on for positive identification. Bed in low position. Call as9 light in reach. Side rails up X 1. 05:54 CT Abd/Pelvis - IV Contrast Only In Process Unspecified. EDMS 06:43 Chest Single View XRAY In Process Unspecified. EDMS 06:54 Tomasz Garrison MD is Hospitalizing Provider. sp4 06:58 Bridger Hutchinson MD is Hospitalizing Provider. la1 07:34 No provider procedures requiring assistance completed. Lozano cath inserted, using ld1 sterile technique, 16 Fr., by commercial intelligence manager, balloon inflated, urine specimen collected. returned clear yellow urine. Patient tolerated well. Oxygen administration via nasal cannula \\T\\ 4L/min. 07:36 Repositioned patient. Cleaned of incontinence. Linen changed. ld1 12:33 Primary Nurse role handed off by Alberto Fields, JOEY ld1 12:33 Patricia Garcia, JOEY is Primary Nurse. ld1 13:06 Patient admitted, IV remains in place. ld1 13:06 Arm band placed on right wrist. ld1 Administered Medications: 04:30 Drug: NS 0.9% IV 1000 ml IV at 1 bolus Per protocol; 1000 mL bolus Route: IV; Rate: 1 rv bolus; Site: left forearm; 04:30 Drug: Ondansetron IVP 4 mg IVP once; over 2 minutes Route: IVP; Site: left forearm; rv 04:30 Drug: morphine IVP or IV 4 mg IVP once over 4 mins Route: IVP; Infused Over: 4 mins; rv Site: left forearm; 06:04 Drug: Famotidine IVP 20 mg IVP once; dilute with 10 mL 0.9% NaCl; give over 2 minutes as9 Route: IVP; Site: left forearm; 06:58 Drug: Rocephin - Rocephin (cefTRIAXone) IVPB 1 grams IVPB once over 30 mins; (mix in 50 rv mL NS) Route: IVPB; Infused Over: 30 mins; Site: right forearm; 06:58 Drug: Zithromax IVPB 500 mg IVPB once over 1 hrs; mix in 250 mL NS Route: IVPB; Infused rv Over: 1 hrs; Site: right forearm; 07:30 Drug: Geodon IM 20 mg IM once Route: IM; Site: left deltoid; ld1 07:31 Not Given (prior shiftt): TORadol - [id number] mg IVP once ld1 Medication: 05:00 VIS not applicable for this client. as9 Output: 08:03 Urine: 1200ml (Lozano); Total: 1200ml. [id number] Outcome: 06:54 Decision to Hospitalize by Provider. sp4 13:05 Admitted to ICU accompanied by nurse, accompanied by tech, via stretcher, room 2, ld1 13:05 Condition: stable 13:05 Instructed on the need for admit, 13:07 Patient left the ED. ld1 Signatures: Dispatcher [employer] EDMS José Miguel Richter, SALVAGE CUTTER-C SALVAGE CUTTER-Cla1 Alberto Fields, RN RN rv Patricia Garcia RN RN ld1 Lesley Toledo [facility] Vinny Leahy MD MD sp4 Huan Muñoz [id number] James Capps Aaron, RN RN as9 Corrections: (The following items were deleted from the chart) 05:30 04:30 Maintain EMS IV. Dressing intact. Good blood return noted. Site clean \\T\\ dry. as9 Gauge \\T\\ site: g18 left forearm. rv 05:33 04:15 BP 133 / 85; Pulse 117bpm; Resp 25bpm; Pulse Ox 88% RA; Temp 99F; 63.5 kg; Height as9 5 ft. 5 in.; BMI: 23.3; as9
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
--- NOTE | 2023-10-24 07:14 | RAD REPORT ---
EXAM DESCRIPTION: [place] Single View10/24/2023 6:41 am CLINICAL HISTORY: Chest pain COMPARISON: 2019 FINDINGS: Relatively large mid and lower right lung consolidation consistent with pneumonia Left lung appears clear of acute infiltrate Heart is normal size IMPRESSION: Right pneumonia
[2023-10-24] MEDS ORDERED: ZIPRASIDONE MESYLA 20 MG/VIAL IM ONE (07:16)
[2023-10-24 08:03] LABS: Specific Gravity 1.021 (1.005-1.030); Urine Bacteria None Seen /HPF (<20); Urine Bilirubin NEGATIVE (Negative); Urine Blood Negative (Negative); Urine Clarity Clear (Clear); Urine Color Light-Yellow (Yellow); Urine Glucose NEGATIVE (Negative); Urine Protein NEGATIVE (Negative); Urine RBC None Seen /HPF (None Seen); Urine Urobilinogen Normal (Normal)
[2023-10-24 08:04] LABS: Barbiturates NEGATIVE (NEGATIVE); Benzodiazepines POSITIVE (NEGATIVE); Cocaine NEGATIVE (NEGATIVE); METHAMPHETAM POSITIVE (NEGATIVE); Methadone NEGATIVE (NEGATIVE); Opiates POSITIVE (NEGATIVE); Phencyclidine NEGATIVE (NEGATIVE); THC Cannibis NEGATIVE (NEGATIVE)
[2023-10-24] MEDS ORDERED: NALOXONE 0.4 MG/ML VIAL ONE ×2 (08:13→10:43)
[2023-10-24] MEDS: IPRATROPIUM BROM 0.5MG/2.5ML ONE (08:13)
[2023-10-24] MEDS: ALBUTEROL 2.5 MG/3 ML NEB SOL ONE (08:14)
[2023-10-24] MEDS: NA CHLORIDE 0.9% 1,000 ML IV ONE ×2 (08:22→16:56)
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
[2023-10-24] MEDS: NA CHLORIDE 0.9% 1,000 ML IV SCH (09:00)
[2023-10-24] MEDS: NALOXONE 0.4 MG/ML VIAL IV PRN (09:15)
[2023-10-24] MEDS ORDERED: ACETAMINOPHEN 650MG/RECT SUPP PR ONE (10:42)
[2023-10-24] MEDS ORDERED: NA CHLORIDE 0.9% 2,000 ML ONE (10:43)
[2023-10-24] MEDS ORDERED: ENOXAPARIN 40 MG/0.4 ML SQ ONE (10:43)
[2023-10-24 10:45] LABS: Blood Gas Oxyhemoglobin 84.9 % (94-97); Blood O2 Saturation 87.3 % (92-98.5)
[2023-10-24] MEDS: ALBUTEROL 2.5 MG/3 ML NEB SOL NEB SCH ×2 (11:00→13:45)
[2023-10-24] MEDS: IPRATROPIUM BROM 0.5MG/2.5ML NEB SCH ×2 (11:00→13:45)
[2023-10-24 11:08] LABS: Absolute Lymphocytes (CBC) 0.6 K/uL (0.7-4.9); Hematocrit 40.4 % (36.0-45.0); Lymphocytes % 5.4 % (15.3-44.8); MCV 91.4 fL (80-100); MPV 8.6 fL (7.6-11.3); Platelets 206 thou/uL (152-406); RBC Red Blood Cell Count 4.42 M/uL (3.86-4.86)
[2023-10-24] MEDS: ACETAMINOPHEN 650MG/RECT SUPP PR PRN (11:08)
[2023-10-24 11:09] LABS: Bilirubin Total 0.6 mg/dL (0.2-1.0); Magnesium 1.5 mg/dL (1.6-2.4); Protein, Total 6.4 g/dL (6.4-8.2); Troponin High Sensitivity 5.6 pg/mL (<58.9)
[2023-10-24] MEDS: AZITHROMYCIN IV 500 MG in NA CHLORIDE 0.9% 250 ML IVPB SCH (11:09)
[2023-10-24] MEDS: ENOXAPARIN 40 MG/0.4 ML SQ SCH (11:09)
[2023-10-24] MEDS: CEFTRIAXONE 1,000 MG in NA CHLORIDE 0.9% 50 ML IVPB SCH (11:09)
[2023-10-24] MEDS: INSULIN REGULAR (HUMAN) 100 UNIT/ML SQ SCH (11:30)
[2023-10-24 12:08] LABS: Blood Morphology Comment NOT SEEN (NOT SEEN); Platelet Estimate ADEQ; White Blood Cell Scan OK (OK)
[2023-10-24] MEDS: MAGNESIUM SULFATE 1 gm IVPB 1 GM/100 ML BAG IV ONE (13:22)
[2023-10-24] MEDS ORDERED: IPRATROPIUM BROM 0.5MG/2.5ML ONE (13:45)
[2023-10-24] MEDS ORDERED: ALBUTEROL 2.5 MG/3 ML NEB SOL ONE (13:45)
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
[2023-10-24] MEDS: MAGNESIUM 50% 3 GM in NA CHLORIDE 0.9% 100 ML IV ONE (14:11)
[2023-10-24] MEDS: VANCOMYCIN 1 GM in NA CHLORIDE 0.9% 250 ML IVPB SCH (16:00)
[2023-10-24] MEDS ORDERED: NA CHLORIDE 0.9% 1,000 ML ONE (16:15)
[2023-10-24] MEDS ORDERED: VANCOMYCIN 1.5 GM in NA CHLORIDE 0.9% 500 ML IVPB ONE (17:00)
--- NOTE | 2023-10-24 19:40 | RAD REPORT ---
EXAM DESCRIPTION: CT - Abdomen Pelvis W Contrast - 10/24/2023 6:57 am CLINICAL HISTORY: 62 years Female BODY ACHES, ABD PAIN TECHNIQUE: Axial CT imaging of the abdomen and pelvis was performed following the administration of intravenous contrast.. Oral contrast was not administered. Sagittal and coronal reconstructed image s were then performed. The CT study is performed according to ALARA (as low as reasonably achievabl e) or ALARA/IMAGE GENTLY, with automatic adjustment of mA and/or kV according to patient size. Performed on: 10/24/2023 at 5:52 AM. COMPARISON: CT abdomen and pelvis with contrast performed on 02/11/2020 FINDINGS: Lung bases: There is patchy airspace consolidation in the right lung base concerning for p neumonia. The left lung base is clear. There are bilateral subpectoral breast implants. The heart is normal in size. There is a moderate to large hiatal hernia. Liver: The liver is normal in size and configuration. No focal hepatic abnormalities are identified. There is decreased attenuation of the liver which can be seen with hepatic steatosis. The hepatic and portal veins are patent. Spleen: The spleen is normal in size, configuration and attenuation. There is a sharply marginated fo uday area of decreased attenuation along the posterior superior spleen which may be related to an old splenic infarct or possibly splenic cyst. This was not definitely appreciated on the prior study. Gallbladder and bile duct: The gallbladder is surgically absent. There is no biliary ductal dilatat ion. Pancreas: The pancreas is grossly normal in size and configuration. Adrenal Glands: The adrenal glands are normal in size and configuration. Kidneys: The kidneys are normal in size and configuration. There is no evidence of hydronephrosis. Th ere is no evidence of nephrolithiasis. No definite solid or cystic renal mass lesions are identified. Stomach: The stomach is grossly normal. There is a moderate to large hiatal hernia. Bowel: The bowel gas pattern is non specific and non obstructive. There is scattered colonic divertic ulosis. There appear to be postsurgical changes in the right lower quadrant in the region of the prox imal colon. Appendix: The appendix is not clearly delineated on this examination. There is no CT evidence of acut e appendicitis. Free air: There is no evidence of free air. Free fluid: There is no evidence of free fluid. Vasculature: The aorta is normal in caliber and contour. The inferior vena cava is grossly unremarkab le. There are mild to moderate atherosclerotic calcifications along the abdominal aorta and proximal major branch vessels. Lymphadenopathy: No pathologic lymphadenopathy is identified. Bladder: The bladder is well-distended and smooth in contour. Reproductive: The uterus is small but otherwise normal in appearance. Bones: No acute osseous abnormalities are identified. Soft tissues: No acute soft tissue abnormalities are identified. There is a grossly stable fat-contai jade left inguinal hernia. IMPRESSION: 1. Patchy airspace consolidation in the right lung base concerning for pneumonia. 2. Moderate to large hiatal hernia. 3. Fatty infiltration of the liver. 4. Remote cholecystectomy. 5. Scattered colonic diverticulosis without evidence of diverticulitis. There appear to be postsurg ical changes in the right lower quadrant in the region of the proximal colon. 6. Grossly stable fat-containing left inguinal hernia. 7. Suspect old splenic infarct or possibly splenic cyst along the posterior superior spleen. This w as not definitely appreciated on the prior study. Electronically signed by: Leann Álvarez DO 10/24/2023 06:48 AM LEVELING MACHINE OPERATOR Due to temporary technical issues with the PACS/Fluency reporting system, reports are being signed by the in house radiologists without review as a courtesy to insure prompt reporting. The interpreting radiologist is fully responsible for the content of the report.
[2023-10-24] MEDS: BUSPIRONE HCL 5 MG TABLET PO SCH (21:00)
[2023-10-25] MEDS ORDERED: ACETAMINOPHEN 650MG/RECT SUPP PR ONE (00:17)
[2023-10-25 01:19] LABS: Absolute Lymphocytes (CBC) 1.5 K/uL (0.7-4.9); Hematocrit 34.9 % (36.0-45.0); Lymphocytes % 7.3 % (15.3-44.8); MCV 91.2 fL (80-100); MPV 8.4 fL (7.6-11.3); Platelets 203 thou/uL (152-406); RBC Red Blood Cell Count 3.83 M/uL (3.86-4.86)
[2023-10-25 01:33] LABS: Albumin 2.4 g/dL (3.4-5.0); Bilirubin Total 0.4 mg/dL (0.2-1.0); Magnesium 2.2 mg/dL (1.6-2.4); Potassium 4.1 mEq/L (3.5-5.1); Protein, Total 5.3 g/dL (6.4-8.2); Troponin High Sensitivity 4.5 pg/mL (<58.9)
[2023-10-25] MEDS ORDERED: HEPARIN/D5W 25,000 UNIT/500 ML BAG IV SCH (06:00)
--- NOTE | 2023-10-25 07:34 | RAD REPORT ---
EXAM DESCRIPTION: NM - Vent Perfusion VQ Scan - 10/25/2023 7:05 am CLINICAL HISTORY: Chest pain/elevated D-dimer COMPARISON: October 24, 2023 x-ray TECHNIQUE: 21.8 Mci Xe133 was administered by inhalation. First breath, equilibrium, and washout images of the lungs obtained 6.7 millicuries Technetium-99 MAA was administered intravenously. Anterior, posterior, lateral and ob lique views of the lungs were taken. FINDINGS: Mildly inhomogeneous radiotracer activity within the right lung on perfusion and ventilati on images which is matched Normal radiotracer activity left lung No mismatched segmental or lobar perfusion defects are seen. IMPRESSION: Low probability for a pulmonary embolism
[2023-10-25] MEDS ORDERED: ALBUTEROL 2.5 MG/3 ML NEB SOL ONE ×3 (07:43→21:57)
[2023-10-25] MEDS ORDERED: IPRATROPIUM BROM 0.5MG/2.5ML ONE ×3 (07:43→21:57)
[2023-10-25] MEDS ORDERED: NA CHLORIDE 0.9% 0 ML ONE (08:44)
[2023-10-25] MEDS ORDERED: AZITHROMYCIN 500 MG INJ IVPB ONE (08:44)
[2023-10-25] MEDS ORDERED: CEFTRIAXONE 1000 MG/VIAL ONE (08:44)
[2023-10-25] MEDS ORDERED: NA CHLORIDE 0.9% 250 ML ONE (08:44)
[2023-10-25] MEDS ORDERED: NA CHLORIDE 0.9% 50 ML ONE (08:45)
[2023-10-25 09:23] LABS: Protime INR 1.22
[2023-10-25] MEDS: AZITHROMYCIN IV 500 MG in NA CHLORIDE 0.9% 250 ML IVPB SCH (10:00)
--- NOTE | 2023-10-25 10:04 | P.PN ---
Subjective Date of Service: 10/25/23 Chief Complaint: pneumonia, sepsis Pt is resting comfortably in bed. She is more alert today/V/Q scan shows low probability for PE. Will dc heparin drip. Pt complains of right rib cage pain, likely due to pleuritic pain from pneumonia. Continue iv abx. Pt is using 4L BNC. No other complaints. Review of Systems Unremarkable General: Unremarkable Eyes: Unremarkable ENT: Unremarkable Respiratory: Shortness of Breath Cardiovascular: Unremarkable Gastrointestinal: Unremarkable Genitourinary: Unremarkable Musculoskeletal: Unremarkable Integumentary: Unremarkable Neurological: Unremarkable Lymphatics: Unremarkable Physical Examination - Vital Signs Temperature: 97.6 F Blood Pressure: 124/70 Pulse: 78 Respirations: 24 Pulse Ox (%): 99 - Physical Exam General: Alert, In no apparent distress, Oriented x3 HEENT: Atraumatic, Normocephalic, PERRLA Neck: Supple, 2+ carotid pulse no bruit Respiratory: Normal air movement, Crackles/rales Cardiovascular: No edema, Normal pulses, Regular rate/rhythm, Normal S1 S2 Capillary refill: <2 Seconds Gastrointestinal: Normal bowel sounds, Soft and benign, Non-distended Musculoskeletal: No clubbing, No swelling, Other (right chest wall pain. ) Integumentary: No rashes, No breakdown Neurological: Normal speech, Normal strength at 5/5 x4 extr, Normal tone, Sensation intact, Cranial nerves 3-12 intact Lymphatics: No axilla or inguinal lymphadenopathy Assessment And Plan - Plan Right sided pneumonia: Will continue rocephin and azithro. Follow up blood cx AMS: Likely due to opiate abuse. Improved with narcan. CT head head shows mild diminished density seen in the right parietal region. Will follow up MRI. Lipid profile shows T. chol of 152. Acute resp failure with hypoxia: Likely due to pneumonia. ABG shows pH 7.4, CO2 40.3, O2 54. Continue abx. V/Q scan shows low probability for PE. Will dc heparin drip. Continue 4L BNC and prn duoneb. Pulm is following. Lactic acidosis; Lactate is 4.6 <- 3.9. Will give IVF and trend lactate. Splenic infarct: Per CT abdomen. Pt denies any abdominal pain. Anxiety/ depression: Will give buspar Hypotension: Will continue IVF. Low threshold to start pressor. Hypomagnesemia: Mag is 2.2 <- 1.5. Repleted. Will monitor. RAFAEL: Cr is 1.18<- 1.52 <- 1.34. likely due to hypovolemia. Will give IVF, avoid nephrotoxins and monitor renal function. Hypothyroidism: Will give synthroid when able to swallow Nutrition: Will do swallow eval before oral intake. DVT ppx: SCD Code: full
[2023-10-25] MEDS ORDERED: HYDROCODONE/APAP 5/325 MG TAB ONE (11:41)
[2023-10-25] MEDS: HYDROCODONE/APAP 5/325 MG TAB PO PRN (11:43)
--- NOTE | 2023-10-25 14:22 | RAD REPORT ---
EXAM DESCRIPTION: MRI - Brain W/Wo Cont - 10/25/2023 1:33 pm CLINICAL HISTORY: r/o CVA COMPARISON: Head CT 10/24/2023 TECHNIQUE: Multiplanar multisequence MRI of the brain performed without IV contrast. FINDINGS: Multiple regions of diffusion restriction with corresponding T2/FLAIR hyperintensity, the largest are present in the right parietal lobe involving the cortex and subcortical white matter. Sma ller regions present in the right frontal lobe in the preseptal and to lesser extent anterior tubercu lar regions, as well as in the left occipital lobe. Similar signal abnormalities also involve the rig ht more than left basal ganglia and right centrum semiovale region. Small punctate foci involve the h igh left frontal cortex. Few similar foci are seen along the right cerebellar folia. Crescentic right posterior temporal cortical, and right perisylvian cortical regions of signal hypoin tensity on the gradient images, series 8, image 10, and series 8, image 14 respectively, suggesting l imited petechial hemorrhage. No evidence of acute intracranial hemorrhage or abnormal extra-axial fluid collections. Mild mass-effect with some effacement of the right frontal horn. Ventricular caliber otherwise within normal for age. Midline structures are unremarkable. No evidence of midline shift. Major vascular flow voids are preserved. Mastoid air cells and paranasal sinuses are clear. IMPRESSION: Multiple supratentorial and infratentorial regions of signal abnormality as above, more extensive in the right cerebral hemisphere, suggestive of subacute infarcts. Distribution may relate to watershed ischemia or possibly embolic disease. Some mass effect with mild effacement of the right lateral ventricle frontal horn. No midline shift. Small regions of petechial cortical hemorrhage in the posterior right temporal and right preseptal an d frontal cortex. The findings were communicated to Dr Hutchinson on 10/25/2023 at 14:17 hours.
--- NOTE | 2023-10-25 16:37 | CON ---
Date of Consultation: 10/25/2023 Reason For Consultation: History of coronary artery disease and cardiac murmur. History Of Present Illness: This 62-year-old female comes into the emergency room because of abdomin al discomfort, cough and congestion, generalized body aches. Known to have history of coronary arter y disease in the past, but she does not have any stents. Denies having active chest pain at the pres ent time. Past Medical History: Coronary artery disease, COPD, hypothyroidism, anxiety. Medications: Refer to reconciliation sheet for detailed list. Allergies: NO KNOWN DRUG ALLERGIES. Family History: No premature coronary artery disease or cancer. Social History: Does not smoke or drink. Does not use any drugs. Review of Systems: All systems reviewed are negative except as mentioned in HPI. Physical Examination: Vital Signs: Reviewed. Head and Neck: Pupils are equal, reactive to light. Intact eye movements. Neck: No JVD. No cervical lymphadenopathy. Neck is supple. Thyroid is not enlarged. Lungs: Clear to auscultation bilaterally. No rhonchi, rales, or crackles. No accessory muscle use. Heart: Regular rate and rhythm with a systolic ejection murmur. Abdomen: Soft, nontender. Bowel sounds positive. No organomegaly. No masses or hernia. No rigidi ty or rebound. Extremities: No edema, clubbing, cyanosis. Intact pulses. Skin: No rash. Neurologic: Alert, awake, oriented x3. No acute focal deficits appreciated. Investigations: BUN 12, creatinine is 1.1. Cardiac enzymes are negative. Hemoglobin is 11.5, white blood cell count is 20,000. Assessment/recommendation: 1.Cardiac murmur, probably aortic valve disorder. We will plan for outpatient evaluation with an [facility]. No need for inpatient workup. 2.History of coronary artery disease. Troponins are negative. No active chest pain. We will plan for outpatient stress test on her as she has history of diabetes as well. 3.Dyslipidemia. Continue statin. 4.Pneumonia, on broad-spectrum antibiotics. The patient can be followed up as an outpatient for [facility] workup once she is stable from the pneumonia standpoint and when she is released. SR/MODL Voice ID: [id number] Report ID: [id number]
--- NOTE | 2023-10-25 16:56 | RAD REPORT ---
EXAM DESCRIPTION: CT - Head angio - 10/25/2023 4:24 pm CLINICAL HISTORY: CVA COMPARISON: Head Brain Wo Cont dated 02/05/2020; Brain W/Wo Cont dated 10/25/2023; Head C Spine Mpr Wo Con dated 10/24/2023; Neck Angio dated 10/25/2023 TECHNIQUE: Axial CT angiography images of the head was performed with multiplanar and maximum intens ity projection reconstructions. Images performed following intravenous administration of 95mL Isovue 370. All CT scans are performed using dose optimization technique as appropriate and may include automated exposure control or mA/KV adjustment according to patient size. FINDINGS: No evidence of large vessel occlusion. No evidence of aneurysm or dissection flap is detec ivy. No flow-limiting stenosis or vascular malformation identified. Antegrade flow is seen in the vertebral arteries. The vertebral arteries are codominant. The visualized dural venous sinuses are grossly patent. IMPRESSION: No evidence of large vessel occlusion or flow-limiting stenosis.
--- NOTE | 2023-10-25 16:59 | RAD REPORT ---
EXAM DESCRIPTION: CT - Neck Angio - 10/25/2023 4:25 pm CLINICAL HISTORY: CVA COMPARISON: Head C Spine Mpr Wo Con dated 10/24/2023; Chest Single View dated 10/24/2023 TECHNIQUE: Axial CT angiography images of the head was performed with multiplanar and maximum intens ity projection reconstructions. Images performed following intravenous administration of 95mL Isovue 370. All CT scans are performed using dose optimization technique as appropriate and may include automated exposure control or mA/KV adjustment according to patient size. Quantification of carotid stenosis, if any, is performed according to NASCET criteria. FINDINGS: A left aortic arch is identified with normal three vessel configuration of the great vesse ls. No significant flow abnormality is seen of the common carotid bilaterally. No significant stenosis is identified involving the cervical segments of both internal carotid arteri es. Normal flow is seen within both vertebral arteries. Patchy interstitial and alveolar opacification in the dependent right upper lobe. Layering small to m oderate right pleural effusion. IMPRESSION: No significant flow abnormality of the neck vessels is identified. Right upper lobe opacities and layering up to moderate right pleural effusion, raising concern for pn eumonia. CAROTID STENOSIS REFERENCE USING NASCET CRITERIA: % ICA stenosis = (1 - narrowest ICA diameter/diameter of distal cervical ICA) x 100. Mild - <50% stenosis. Moderate - 50-69% stenosis. Severe - 70-94% stenosis. Near occlusion - 95-99% stenosis. Occluded - 100% stenosis.
[2023-10-25] MEDS: D5 0.45 NS 1,000 ML IV SCH (17:47)
[2023-10-25] MEDS ORDERED: MORPHINE 2 MG/ML SYR ONE (18:40)
[2023-10-25] MEDS: MORPHINE 2 MG/ML SYR IV PRN (18:42)
--- NOTE | 2023-10-25 20:28 | CON ---
Reason For Consultation: Consultation called because of stroke. History Of Present Illness: Ms. Galo is a 62-year-old right-handed patient who was brought to [facility] on 10/24/2023, i.e., yesterday where she was at a picnic, developed chills, f gisella, generalized body aches, abdominal pain and was confused. At [facility] found to be t hrashing around in bed. She had head and cervical spine CT scan which identified areas of nonspecifi c mild diminished density, most notably in the right parietal region with the potential of stroke and MRI of the brain was ordered. At the time the patient arrives, she was well outside of the window f or any thrombolysis and she arrived at 4:17 in the morning on 10/24 and it is noted that the patient' s symptoms at the [facility] apparently began the day before with a generalized body aches and feeling un well. Her subsequent brain MRI done today on the identified multiple supratentorial and infrate ntorial areas of abnormal signal, more extensive in the right cerebral hemisphere suggestive of subac anastacio infarcts. The distribution was felt to be related to possibly watershed ischemia or possible emb olic disease. It is noted that there was some mass effect with mild effacement of the right lateral ventricle frontal horn. There was no midline shift. There was noted small regions of petechial wallace ical hemorrhage in the posterior right temporal and right preseptal and frontal cortex. These areas were not necessarily distinguished as different in age from the subacute areas of stroke. Also noted on the body of the report that the patient had small regions in the left occipital lobe, left basal ganglia and high left frontal cortex. She developed a very elevated white blood cell count and her c hest x-ray identified a right lower lobe pneumonia. She is on Rocephin in addition to azithromycin a long with her DVT prophylaxis with heparin which she is receiving heparin drip at 25,000 units in 500 cc. Since onset, the patient has had some difficulty with thin liquids and has coughing. It is reported, however, that she did eat a breakfast earlier in the morning. Past Medical History: Hypothyroidism, colitis, coronary artery disease. Surgical History: Bowel resection and hernia repair. Family History: Heart disease and diabetes in mother. Heart disease in father. Social History: The patient smokes cigarettes on a daily basis. No alcohol or IV drug use. Allergies: NO KNOWN DRUG ALLERGIES. Medications: At home Xanax 2 mg daily, Synthroid 0.1 mg daily, doxepin 100 mg twice daily, Adderall 20 mg daily. Review of Systems: The patient reports some mild generalized aches, some confusion, some difficulty with her vision, mov ing her arms and legs with incoordination there. No rash. No other positives on the systems review. Physical Examination: Vital Signs: Blood pressure 118/71, pulse 82, respiratory rate of 16, temperature 99.1, oxygen satur ation 99%, weight 141 pounds, height 5 feet 4 inches, BMI 24. General: Ms. Galo is resting in hospital bed. She appears to be normocephalic, atraumatic. Sclerae anicteric. Oropharynx pink and moist. Neck: Supple. Increased breath sounds right. Otherwise, no clubbing, cyanosis, or edema. Abdomen: Soft. Neurological: She is alert, oriented to person, but not to the month. She does follow commands with out difficulty. In terms of cranial nerves, from her perspective a left visual field deficit and ext raocular movements appear intact. Face is symmetric. She has difficulty with lingual and guttural s ounds which are poor, better at the labial sounds. Facial sensation, she has decreased simultaneous touch in the left face simultaneously to stimulation compared to the right side, so the le ft is decreased. Similarly so, decreased sensation in the left arm compared to the right and slight decreased sensation in the left leg compared to right. She is unable to distinguish double simultane ous stimulations in the arms and legs. She did have a slight drift after count 10 on the left arm an d not so on the right and a drift on the left leg, not so on the right. Right was normal and right a rm and leg did not touch the bed at elevation. She had some dysmetria noted on [id number] on the left, intact on the right side, difficulty on the left and again intact on the right. She will be a mbulated with therapists. Reflexes, symmetric. Laboratory Studies: White blood cell count 20,100, neutrophils are 90%, hemoglobin 11.5, hematocrit 34.9. Her INR 1.22. Arterial blood gas; pH 7.4, pCO2 40, PO2 54.4, HC03 24.3. Sodium 142, potassiu m 4.1, chloride 114, carbon dioxide 22, BUN 12, creatinine 1.18, glucose 101. Lactic acid earlier to day is 2.6, currently 1.8, calcium 7.8, magnesium 2.2, AST 15, ALT 17, alkaline phosphatase 59, trigl ycerides 55, total cholesterol 152, LDL cholesterol 84, HDL cholesterol 57, cholesterol HDL ratio 2.6 7. Urinalysis is completely normal. Her drug screen is positive for opiates, positive for amphetami lola, positive for benzodiazepines. She has pending CT angiogram of head and neck, V/Q scan of the ziyad ngs negative. Again, the chest CT scan identified a large mid and lower right lung consolidation, co nsistent with pneumonia. NIH Stroke Scale of 5. She was off on the month. She had loss of visual field on the left. She had loss of sensation on the left upper and lower extremity and on the face. She had a loss of double s imultaneous stimulation on the left. She had limb ataxia on the left. She had mild dysarthria. Assessment And Plan: Ms. Sirisha Galo is a 62-year-old patient who apparently has had both left and right hemispheric strokes that are microembolic, most likely would be cardioembolic source. She does have some evidence of microhemorrhages. She is on full heparinization and that should be cut back t o deep vein thrombosis treatment level. She has aspiration pneumonia and should be put n.p.o. until she can have a diet consistency appropriate for her level of dysphagia. Her antibiotics course mahi nued per protocol. She may have allowed some mild permissive hypertension, but systolic blood pressu re may be held to the below 140 given the microhemorrhages. She should have a repeat CT scan within 24 hours to rule out any worsening bleed or any potential midline shift and will need to be transferr ed for higher level of care to [place] if she does actually develop any worsening swelling or edema. Otherwise, Lipitor for dyslipidemia, folic acid 1 mg daily. LB/MODL Voice ID: [id number] Report ID: [id number]
[2023-10-25] MEDS: ATORVASTATIN 40 MG TAB PO SCH (20:40)
[2023-10-26] MEDS ORDERED: IPRATROPIUM BROM 0.5MG/2.5ML ONE ×2 (03:01→07:23)
[2023-10-26] MEDS ORDERED: ALBUTEROL 2.5 MG/3 ML NEB SOL ONE ×2 (03:01→07:23)
[2023-10-26] MEDS ORDERED: VANCOMYCIN 1.25 GM in NA CHLORIDE 0.9% 250 ML IVPB SCH (05:00)
[2023-10-26 05:07] LABS: Absolute Lymphocytes (CBC) 1.8 K/uL (0.7-4.9); Hematocrit 31.3 % (36.0-45.0); Lymphocytes % 10.5 % (15.3-44.8); MCV 90.6 fL (80-100); MPV 8.4 fL (7.6-11.3); Platelets 191 thou/uL (152-406); RBC Red Blood Cell Count 3.45 M/uL (3.86-4.86)
[2023-10-26 05:25] LABS: Albumin 2.2 g/dL (3.4-5.0); Bilirubin Total 0.6 mg/dL (0.2-1.0); Protein, Total 5.3 g/dL (6.4-8.2)
[2023-10-26 05:26] LABS: Magnesium 1.9 mg/dL (1.6-2.4); Potassium 4.1 mEq/L (3.5-5.1)
--- NOTE | 2023-10-26 07:52 | RAD REPORT ---
EXAM DESCRIPTION: - CP - 10/26/2023 2:18 am CLINICAL HISTORY: CVA; r/o internal carotid artery thrombus COMPARISON: Neck Angio dated 10/25/2023; Brain W/Wo Cont dated 10/25/2023 TECHNIQUE: Real-time sonographic evaluation of both carotid systems was performed. Doppler interroga tion was performed with waveform tracing bilaterally. FINDINGS: Elevated peak systolic velocities are present in the right common carotid artery with a pe ak systolic velocity of 176 cm/second. The left common carotid artery peak systolic velocity is withi n normal limits. Peak systolic velocities in the right ICA are 113 cm/second, 134 cm/second, and 163 cm/second at its proximal common midportion, and distal portion respectively. In the left ICA, the peak systolic veloc ities proximally are 204 cm/second, 214 cm/second, and 190 cm/second in the proximal, mid, and distal portions, respectively. Predominantly hard plaque but some soft plaque also noted throughout both the common carotid arteries , internal carotid arteries, and external carotid arteries bilaterally. Antegrade flow seen in both vertebral arteries. IMPRESSION: Moderate (50-69%) stenosis of the left ICA. No flow limiting stenosis in the right carot id system. Mixed plaque present within the common, internal, and external carotid arteries bilaterall y.
[2023-10-26] MEDS ORDERED: NA CHLORIDE 0.9% 0 ML ONE (09:21)
[2023-10-26] MEDS ORDERED: NA CHLORIDE 0.9% 250 ML ONE (09:21)
[2023-10-26] MEDS ORDERED: CEFTRIAXONE 1000 MG/VIAL ONE (09:21)
[2023-10-26] MEDS ORDERED: AZITHROMYCIN 500 MG INJ IVPB ONE (09:21)
[2023-10-26] MEDS: AZITHROMYCIN IV 500 MG in NA CHLORIDE 0.9% 250 ML IVPB SCH (09:29)
--- NOTE | 2023-10-26 09:29 | P.PN ---
Subjective Date of Service: 10/26/23 Chief Complaint: pneumonia, sepsis Pt is resting comfortably in bed. V/Q scan showed low probability for PE. Pt did not receive heparin drip. MRI brain showed evidence embolic disease with petechial hemorrhage. Will repeat CT head to make sure that the petechail hemorrhage is not getting worse. Pt is able to move her extremities. No other complaints. Review of Systems Unremarkable General: Unremarkable Eyes: Unremarkable ENT: Unremarkable Respiratory: Unremarkable Cardiovascular: Unremarkable Gastrointestinal: Unremarkable Genitourinary: Unremarkable Musculoskeletal: Unremarkable Integumentary: Unremarkable Neurological: Unremarkable Lymphatics: Unremarkable Physical Examination - Vital Signs Temperature: 99.2 F Blood Pressure: 143/83 Pulse: 73 Respirations: 36 Pulse Ox (%): 96 - Physical Exam General: Alert, In no apparent distress, Oriented x3 HEENT: Atraumatic, Normocephalic Neck: Supple, 2+ carotid pulse no bruit Respiratory: Clear to auscultation bilaterally, Normal air movement Cardiovascular: No edema, Normal pulses, Regular rate/rhythm, Normal S1 S2 Capillary refill: <2 Seconds Gastrointestinal: Normal bowel sounds, Soft and benign, Non-distended Musculoskeletal: No clubbing, No swelling Integumentary: No rashes, No breakdown Neurological: Normal gait, Normal speech, Normal strength at 5/5 x4 extr, Normal tone, Sensation intact, Cranial nerves 3-12 intact Lymphatics: No axilla or inguinal lymphadenopathy Assessment And Plan - Plan Right sided pneumonia: Will continue rocephin and azithro. Follow up blood cx AMS: Likely due to opiate abuse. Improved with narcan. CT head head shows mild diminished density seen in the right parietal region. Will follow up MRI. Lipid profile shows T. chol of 152. Acute resp failure with hypoxia: Likely due to pneumonia. ABG shows pH 7.4, CO2 40.3, O2 54. Continue abx. V/Q scan shows low probability for PE. Will dc heparin drip. Continue 4L BNC and prn duoneb. Pulm is following. CVA: Carotid ultrasound shows moderate (50-69%) stenosis of the left ICA. MRI shows evidence of embolic disease with petechial hemorrhage. Will repeat CT head at 4pm to r/o worsening of petechial hemorrhage. If it worsens pt will be transferred to another facility. Will keep SBP < 140. Lactic acidosis: Lactate is 4.6 <- 3.9. Will give IVF and trend lactate. Splenic infarct: Per CT abdomen. Pt denies any abdominal pain. Anxiety/ depression: Will give buspar Hypotension: Will continue IVF. Low threshold to start pressor. Hypomagnesemia: Mag is 2.2 <- 1.5. Repleted. Will monitor. RAFAEL: Cr is 0.88<- 1.18<- 1.52 <- 1.34. likely due to hypovolemia. Will give IVF, avoid nephrotoxins and monitor renal function. Hypothyroidism: Will give synthroid when able to swallow Nutrition: Will do swallow eval before oral intake. DVT ppx: SCD Code: full
[2023-10-26] MEDS ORDERED: NA CHLORIDE 0.9% 50 ML ONE (10:04)
[2023-10-26] MEDS ORDERED: MORPHINE 2 MG/ML SYR ONE (10:11)
[2023-10-26] MEDS ORDERED: ALBUTEROL 2.5 MG/3 ML NEB SOL NEB PRN (11:02)
--- NOTE | 2023-10-26 11:03 | P.CNS ---
Date of Consult: 10/26/23 Chief Complaint: pneumonia, sepsis History of Present Illness: Patient is 62 years of age mated with sudden onset of chills and some fever was diagnosed and admitted with right lower lobe pneumonia and altered mental status she is doing a little better today Allergies No Known Allergies Allergy (Verified 06/28/18 23:01) Home Medications: ALPRAZolam [Xanax*] 2 mg PO DAILY PRN 06/29/18 Levothyroxine [Synthroid*] 0.1 mg PO DAILYAC #30 tab 02/13/20 Dextroamphetamine/Amphetamine [Adderall 20 mg Tablet] 20 mg PO DAILY 10/24/23 Doxepin HCl 100 mg PO BID 10/24/23 - Past Medical/Surgical History Diabetic: No -: hypothyroid -: colitis -: HYPOTHROIDISM -: coronary artery disease -: hernia repair -: bowel resection - Family History Mother Medical History: Heart disease, Diabetes Father Medical History: Heart disease - Social History Smoking Status: Unknown if ever smoked Alcohol use: No CD- Drugs: No Caffeine use: Yes Place of Residence: Home Review of Systems 10-point ROS is otherwise unremarkable General: Weakness Respiratory: Shortness of Breath Physical Examination Temp Pulse Resp BP Pulse Ox 99.2 F 77 30 H 144/80 H 98 10/26/23 09:36 10/26/23 10:17 10/26/23 10:17 10/26/23 10:17 10/26/23 10:17 General: Alert, Oriented x3 Respiratory: Crackles/rales (Crackles on the right side) Cardiovascular: No edema, Normal S1 S2 Gastrointestinal: Normal bowel sounds, Soft and benign - Problems (1) Right lower lobe pneumonia Current Visit: Yes Status: Acute Plan: Patient is 62 years of age admitted with acute onset of right lower lobe pneumonia likely pneumococcal vital signs oxygenation satisfactory patient's white count is elevated also has significant hypoxemia MRI of the brain is abnormal suggestive of subacute infarct continue with present antibiotics till white count is normal Qualifiers: Pneumonia type: due to unspecified organism Qualified Code(s): J18.9 - Pneumonia, unspecified organism
--- NOTE | 2023-10-26 15:54 | RAD REPORT ---
EXAM DESCRIPTION: CT - Head Brain Wo Cont - 10/26/2023 3:42 pm CLINICAL HISTORY: Evaluate for midline shift, edema, hemorrhage COMPARISON: Head angio dated 10/25/2023; Head Brain Wo Cont dated 02/05/2020; Brain W/Wo Cont dated ; Head C Spine Mpr Wo Con dated 10/24/2023 TECHNIQUE: All CT scans are performed using dose optimization technique as appropriate and may inclu de automated exposure control or mA/KV adjustment according to patient size. FINDINGS: Multiple late acute infarcts are again identified in the right frontal, right parietal, ri ght temporal, and right occipital lobes as well as in the left occipital lobe. Small late acute infar cts in the right cerebellar hemisphere. No acute intracranial hemorrhage is identified. Right caudate head and basal ganglia infarcts also identified. Compared with the prior MRI, the infarct distributi on appears similar. Basilar cisterns are patent. Ventricular size is similar. No evidence of cerebral herniation. The paranasal sinuses and mastoids are clear. The calvarium is intact. IMPRESSION: No acute intracranial hemorrhage or midline shift. Evolving late acute bilateral cerebra l and cerebellar infarcts with similar distribution to the MRI from 10/25/2023.
[2023-10-27 04:47] LABS: Hematocrit 34.1 % (36.0-45.0); MPV 8.3 fL (7.6-11.3); Platelets 210 thou/uL (152-406); RBC Red Blood Cell Count 3.75 M/uL (3.86-4.86)
[2023-10-27 05:06] VITALS: BMI 25.5
[2023-10-27 05:12] LABS: Albumin 2.1 g/dL (3.4-5.0); Bilirubin Total 0.8 mg/dL (0.2-1.0); Protein, Total 5.7 g/dL (6.4-8.2)
[2023-10-27 05:20] LABS: Magnesium 1.7 mg/dL (1.6-2.4); Potassium 3.6 mEq/L (3.5-5.1)
[2023-10-27] MEDS ORDERED: AZITHROMYCIN 500 MG INJ IVPB ONE (08:10)
[2023-10-27] MEDS ORDERED: NA CHLORIDE 0.9% 250 ML ONE (08:10)
[2023-10-27] MEDS ORDERED: CEFTRIAXONE 1000 MG/VIAL ONE (08:10)
[2023-10-27] MEDS ORDERED: NA CHLORIDE 0.9% 50 ML ONE (08:10)
--- NOTE | 2023-10-27 09:46 | P.PN ---
Subjective Date of Service: 10/27/23 Chief Complaint: pneumonia, sepsis Pt is resting comfortably in bed. MRI brain showed evidence embolic disease with petechial hemorrhage. Repeat CT head is unchanged from the last CT head. Pt is able to move her extremities. No other complaints. Review of Systems Unremarkable General: Unremarkable Eyes: Unremarkable ENT: Unremarkable Respiratory: Unremarkable Cardiovascular: Unremarkable Gastrointestinal: Unremarkable Genitourinary: Unremarkable Musculoskeletal: Unremarkable Integumentary: Unremarkable Neurological: Unremarkable Lymphatics: Unremarkable Physical Examination - Vital Signs Temperature: 97.4 F Blood Pressure: 136/77 Pulse: 61 Respirations: 30 Pulse Ox (%): 95 - Physical Exam General: Alert, In no apparent distress, Oriented x3 HEENT: Atraumatic, Normocephalic Neck: Supple, 2+ carotid pulse no bruit Respiratory: Clear to auscultation bilaterally, Normal air movement Cardiovascular: No edema, Normal pulses, Regular rate/rhythm, Normal S1 S2 Capillary refill: <2 Seconds Gastrointestinal: Normal bowel sounds, Soft and benign, Non-distended Musculoskeletal: No clubbing, No swelling Integumentary: No rashes, No breakdown Neurological: Normal speech, Normal strength at 5/5 x4 extr, Normal tone, Sensation intact, Cranial nerves 3-12 intact Lymphatics: No axilla or inguinal lymphadenopathy Assessment And Plan - Plan Right sided pneumonia: Will continue rocephin and azithro. Follow up blood cx AMS: Likely due to opiate abuse. Improved with narcan. CT head head shows mild diminished density seen in the right parietal region. Will follow up MRI. Lipid profile shows T. chol of 152. Acute resp failure with hypoxia: Likely due to pneumonia. ABG shows pH 7.4, CO2 40.3, O2 54. Continue abx. V/Q scan shows low probability for PE. Pt did not get heparin drip. Continue 4L BNC and prn duoneb. Pulm is following. CVA: Carotid ultrasound shows moderate (50-69%) stenosis of the left ICA. MRI shows evidence of embolic disease with petechial hemorrhage. Repeat CT head is negative for worsening of the petechial hemorrhage. If it worsens pt will be transferred to another facility. Will keep SBP < 140. Lactic acidosis: Lactate is 1.8 <- 2.6 <- 4.6 <- 3.9. Will give IVF and trend lactate. Splenic infarct: Per CT abdomen. Pt denies any abdominal pain. Anxiety/ depression: Will give buspar Hypotension: Will continue IVF. Low threshold to start pressor. Hypomagnesemia: Mag is 2.2 <- 1.5. Repleted. Will monitor. RAFAEL: Cr is 0.76<- 0.88<- 1.18<- 1.52 <- 1.34. likely due to hypovolemia. Will give IVF, avoid nephrotoxins and monitor renal function. Hypothyroidism: Will give synthroid when able to swallow Nutrition: Will do swallow eval before oral intake. DVT ppx: SCD Code: full Dispo: Will transfer pt to the floor.
--- NOTE | 2023-10-28 06:47 | P.PN ---
Date of Service: 10/28/23 Subjective: Physical Exam: Vitals: reviewed GEN: Alert, oriented, NAD HEENT: Normal conjunctiva, sclera anicteric CV: Regular rate & rhythm, no edema Pulm: Nonlabored respiraitons, clear bilaterally ABD: Soft, nontender, nondistended MSK: No joint tenderness Integumentary: No rashes Neuro: Normal speech, normal affect Problem List: Acute hypoxic respiratory failure secondary to RLL pneumonia Altered mental status subacte CVA RAFAEL, resolved Anxiety/ depression Hypotension Hypothyroidism Plan: Acute hypoxic respiratory failure secondary to RLL pneumonia CT abd/pelvis (10/26): RLL pneumonia, mod-large hiatal hernia, fatty infitration of liver, scattered colonic diverticulosis, left inguinal hernia, old spenic infarct / possibly spenic cyst along superior spleen carotid u/s (10/25): moderate stenosis of the left ICA. mixed plaque present within the common, internal and external carotid arteries bilaterally VQ scan (10/25): Low probability for a pulmonary embolism pulm consulted continue empiric azithromycin / rocephin duo nebs PRN analgesics / antiemetics wean oxygen as tolerated Follow blood cultures Altered mental status subacte CVA MRI brain (10/25): Multiple supratentorial and infratentorial regions of signal abnormality as above, more extensive in the right cerebral hemisphere, suggestive of subacute infarcts. CTA head/neck (10/25): No evidence of large vessel occlusion or flow-limiting stenosis CT head (10/26): No acute intracranial hemorrhage or midline shift. Evolving late acute bilateral cerebral and cerebellar infarcts with similar distribution to the MRI AMS Likely due to opiate abuse. improved with narcan. Anxiety/ depression continue buspar Hypotension continue IVF. Low threshold to start pressor. RAFAEL, resolved likely due to hypovolemia. continue IVF monitor renal function improved Hypothyroidism: resume home meds once able for PO
[2023-10-28 08:12] LABS: Hematocrit 36.1 % (36.0-45.0); Lymphocytes % 30.3 % (15.3-44.8); MCV 90.2 fL (80-100); MPV 7.7 fL (7.6-11.3); Platelets 300 thou/uL (152-406)
--- NOTE | 2023-10-28 09:56 | P.PN ---
Subjective Date of Service: 10/28/23 Chief Complaint: pneumonia, sepsis NIH stroke scale 0, patient alert and oriented x 3,, no reported trouble swallowing, will obtain PT eval for a.m. MRI brain showed evidence embolic disease with petechial hemorrhage. Repeat CT head is unchanged from the last CT head. Pt is able to move her extremities. No other complaints. - Physical Exam General: Alert, In no apparent distress, Oriented x3 HEENT: Atraumatic, Normocephalic Neck: Supple, 2+ carotid pulse no bruit Respiratory: Clear to auscultation bilaterally, Normal air movement Cardiovascular: No edema, Normal pulses, Regular rate/rhythm, Normal S1 S2 Capillary refill: <2 Seconds Gastrointestinal: Normal bowel sounds, Soft and benign, Non-distended Musculoskeletal: No clubbing, No swelling Integumentary: No rashes, No breakdown Neurological: Normal speech, Normal strength at 5/5 x4 extr, Normal tone, Sensation intact, Cranial nerves 3-12 intact Lymphatics: No axilla or inguinal lymphadenopathy Review of Systems per HPI Physical Examination - Vital Signs Temperature: 98.5 F Blood Pressure: 155/79 Pulse: 62 Respirations: 17 Pulse Ox (%): 92 Assessment And Plan - Plan Assessment plan Acute hypoxic respiratory failure secondary to pneumonia Sepsis with hypotension shock likely secondary to pneumonia rocephin and azithro. Follow up blood cx Admitted to ICU Will continue IVF. Low threshold to start pressor. Pulmonary consulted Repeat chest x-ray 10/29 Lactic acidosis improved Lactate is 1.8 <- 2.6 <- 4.6 <- 3.9. Will give IVF and trend lactate. Blood cultures no growth, sputum culture Metabolic encephalopathy likely secondary to opiate abuse improved Improved with narcan. CT head head shows mild diminished density seen in the right parietal region. Will follow up MRI. Lipid profile shows T. chol of 152. Neurology consulted Nutrition: Swallow eval advance to minced diet Cardiology consulted echo, ordered CVA Carotid ultrasound shows moderate (50-69%) stenosis of the left ICA. MRI shows evidence of embolic disease with petechial hemorrhage. Repeat CT head is negative for worsening of the petechial hemorrhage. If it worsens pt will be transferred to another facility. Will keep SBP < 140. Neurology consult PT, OT eval Echo COMMENTS: 1. NORMAL WITH SYSTOLIC FUNCTION, EJECTION FRACTION 55-60%, NORMAL WALL MOTION, NORMAL DIASTOLIC FUNCTION. 2. MILD AORTIC STENOSIS. 3. RIGHT VENTRICULAR SYSTOLIC PRESSURE 15-20mmHg Anxiety depression Resume appropriate home meds Hypomagnesemia: Mag is 2.2 <- 1.5. Repleted. Will monitor. Acute on chronic kidney injury unknown baseline improved RAFAEL: Cr is 0.76<- 0.88<- 1.18<- 1.52 <- 1.34. likely due to hypovolemia. Will give IVF, avoid nephrotoxins and monitor renal function. Hypothyroidism: Will give synthroid when able to swallow DVT ppx: SCD Code: full Dispo: Resides at home independent prior Discharge Plan: Home - Code Status/Comfort Care Code Status: Full Code Critical Care: No Time Spent Managing PTS Care (In Minutes): 35
--- NOTE | 2023-10-28 11:00 | ECHO ---
HEIGHT: 5 ft 4 in WEIGHT: 148 lb 12.8 oz DATE OF STUDY: 10/28/[address]: Marquis Knowles MD 2-DIMENSIONAL: YES M.MODE: YES DOPPLER: YES COLOR FLOW: YES TDS: NO PORTABLE: YES DEFINITY: NO BUBBLE STUDY: NO DIAGNOSIS: RULE OUT THROMBUS CARDIAC HISTORY: CATHERIZATION: SURGERY: PROSTHETIC VALVE: PACEMAKER: MEASUREMENTS (cm) DIASTOLIC (NORMALS) SYSTOLIC (NORMALS) IVSd 1.0 (0.6-1.2) LA Diam 3.2 (1.9-4.0) LVEF 55% LVIDd 3.6 (3.5-5.7) LVIDs 2.6 (2.0-3.5) %FS 28% LVPWd 1.0 (0.6-1.2) Ao Diam 2.8 (2.0-3.7) 2 DIMENSIONAL ASSESSMENT: RIGHT ATRIUM: NORMAL LEFT ATRIUM: NORMAL RIGHT VENTRICLE: NORMAL LEFT VENTRICLE: NORMAL TRICUSPID VALVE: NORMAL MITRAL VALVE: NORMAL PULMONIC VALVE: NORMAL AORTIC VALVE: MILD AORTIC INSUFFICIENCY PERICARDIAL EFFUSION: TRACE AORTIC ROOT: NORMAL LEFT VENTRICULAR WALL MOTION: NORMAL. DOPPLER/COLOR FLOW: NORMAL. COMMENTS: 1. NORMAL WITH SYSTOLIC FUNCTION, EJECTION FRACTION 55-60%, NORMAL WALL MOTION, NORMAL DIASTOLIC FUNCTION. 2. MILD AORTIC STENOSIS. 3. RIGHT VENTRICULAR SYSTOLIC PRESSURE 15-20mmHg TECHNOLOGIST: KHUSHBU LOPEZ
--- NOTE | 2023-10-28 11:03 | EKG ---
Test Date: 2023-10-25 Test Time: 17:21:21 Air Intelligence Specialist: ZINA MEASUREMENT RESULTS: Intervals: Rate: 85 MD: 150 QRSD: 98 QT: 348 QTc: 414 [place]: P: 63 MD: 150 QRS: 6 T: 52 INTERPRETIVE STATEMENTS: Normal sinus rhythm Normal ECG Compared to ECG 02/05/2020 17:04:32 Sinus bradycardia no longer present Short MD interval no longer present Electronically Signed On 10-28-23 10:58:46 DIRECTOR OF PHILANTHROPY by Clayton Sumner
--- NOTE | 2023-10-28 11:30 | RAD REPORT ---
EXAM DESCRIPTION: RAD - Barium Swallow Modified - 10/28/2023 11:23 am CLINICAL HISTORY: Pneumonia/sepsis FINDINGS: administered thin, nector, honey , pudding , sofr regular = WFL other: decreased mastication due to messing posterior teeth No aspiration fluoro time 1.48min. Ten fluoroscopic spot series obtained
--- NOTE | 2023-10-28 12:46 | P.PN ---
Subjective Date of Service: 10/28/23 Chief Complaint: pneumonia, sepsis Subjective: Improving (Patient is doing well more alert responsive cooperative no new complaints) Review of Systems Unremarkable General: Weakness Physical Examination - Vital Signs Temperature: 99.7 F Blood Pressure: 156/83 Pulse: 69 Respirations: 16 Pulse Ox (%): 90 - Physical Exam General: Alert, Oriented x3 Respiratory: Clear to auscultation bilaterally Cardiovascular: No edema, Regular rate/rhythm, Normal S1 S2 Assessment And Plan - Current Problems (Diagnosis) (1) Right lower lobe pneumonia Current Visit: Yes Status: Acute Plan: Patient is 62 years of age admitted with bilateral pneumonia doing much better more alert responsive cooperative cultures are negative white count is normal mentation is back to to normal no evidence of any aspiration echocardiogram is normal DC Lozano catheter changed to p.o. antibiotics plan for discharge Qualifiers: Pneumonia type: due to unspecified organism Qualified Code(s): J18.9 - Pneumonia, unspecified organism
[2023-10-29 07:07] LABS: Absolute Lymphocytes (CBC) 2.1 K/uL (0.7-4.9); Hematocrit 36.8 % (36.0-45.0); Lymphocytes % 28.1 % (15.3-44.8); MCV 90.4 fL (80-100); MPV 8.2 fL (7.6-11.3); Platelets 342 thou/uL (152-406); RBC Red Blood Cell Count 4.07 M/uL (3.86-4.86)
[2023-10-29 07:22] LABS: Albumin 2.7 g/dL (3.4-5.0); Bilirubin Total 0.5 mg/dL (0.2-1.0); Magnesium 1.8 mg/dL (1.6-2.4); Phosphorus 2.6 mg/dL (2.5-4.9); Potassium 3.3 mEq/L (3.5-5.1); Protein, Total 6.5 g/dL (6.4-8.2)
[2023-10-29] MEDS: POTASSIUM 25 MEQ EFFERV TAB PO ONE (07:38)
--- NOTE | 2023-10-29 08:00 | RAD REPORT ---
EXAM DESCRIPTION: RAD - Chest Single View - 10/29/2023 4:30 am CLINICAL HISTORY: pneumonia Chest pain. COMPARISON: Chest Single View dated 10/24/2023; Abdomen 1 View (KUB) dated 02/10/2020; Chest Single Vie w dated 02/05/2020; Chest Single View dated 06/28/2018 FINDINGS: Portable technique limits examination quality. The lungs are emphysematous but grossly clear. The heart is normal in size. No displaced fractures. IMPRESSION: Previously noted pneumonia has essentially cleared.
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
[2023-10-29 08:39] LABS: Platelet Estimate ADEQ
[2023-10-29 08:40] LABS: Blood Morphology Comment NOT SEEN (NOT SEEN)
[2023-10-29 15:06] VITALS: BP 164/89; TEMP 98.6
[2023-10-29 15:07] VITALS: O2SAT 98
== END 2023-10-29 15:00 | disposition home or self-care (01) | DRG 871 ==
LOC: ER 04:17 → ERHOLD 09:09 → 3RD-ICU 12:04 → 4TH 10-27 13:15
PROVIDERS: ADMIT Hospitalist; ATTEND Hospitalist
PROC: 0T9B70Z Drainage of Bladder with Drainage Device, Via Natural or Artificial Opening (ICD-10-PCS; principal; 2023-10-24)
DX: A41.9 Sepsis, unspecified organism (principal); G92.8 Other toxic encephalopathy; I63.9 Cerebral infarction, unspecified; J69.0 Pneumonitis due to inhalation of food and vomit; J96.01 Acute respiratory failure with hypoxia; R57.8 Other shock; N17.9 Acute kidney failure, unspecified; E87.20 Acidosis, unspecified; E03.9 Hypothyroidism, unspecified; E83.42 Hypomagnesemia; F11.10 Opioid abuse, uncomplicated; F32.A Depression, unspecified; D73.5 Infarction of spleen; K76.0 Fatty (change of) liver, not elsewhere classified; F41.9 Anxiety disorder, unspecified; I25.2 Old myocardial infarction; I25.10 Atherosclerotic heart disease of native coronary artery without angina pectoris; F17.210 Nicotine dependence, cigarettes, uncomplicated; R01.1 Cardiac murmur, unspecified; R29.705 NIHSS score 5; Z79.82 Long term (current) use of aspirin; I65.22 Occlusion and stenosis of left carotid artery; Z79.899 Other long term (current) drug therapy; Z79.890 Hormone replacement therapy
CPT/HCPCS: 36415; 36600; 51702; 70450; 70496; 70498; 70553; 71045; 72125; 74177; 74230; 78582; 80048; 80053; 80061; 80307; 81001; 82140; 82805; 82947; 83605; 83690; 83735; 83880; 84100; 84145; 84439; 84443; 84484; 85025; 85379; 85610; 85730; 86140; 87040; 92611; 93005; 93306; 93880; 94640; 96372; 97116; 97161; 97165; 97530; 99285; A9540; A9558; A9577; J0696; J1650; J2270; J2310; J2405; J3475; J3486; J7030; J7040; J7050; J7613; J7644; J7799; Q9967